=== PATIENT | female | born 1965 | race Caucasian/White ===

== ENCOUNTER 2024-06-25 02:52 | Inpatient (IN) | payer SELFPAY ==
[2024-06-25] VITALS (13 sets, daily range): BP systolic 145–221; BP diastolic 63–101; PULSE 76–105; RESP 16–20; TEMP 36.4–37; O2SAT 93–99; BMI 17.7
--- NOTE | ~2024-06-25 | MR_ITS ---
EXAMINATION: MR BRAIN WITHOUT CONTRAST CLINICAL INFORMATION: CVA COMPARISON: CTA from earlier same day TECHNIQUE: MRI of the brain was obtained using routine sequences without contrast. FINDINGS: Acute watershed-type infarcts within the high right frontoparietal lobe, inclusive of the pre- and post central gyri, paracentral lobule, right superior and middle frontal gyri, and right centrum semiovale. Cytotoxic edema results in minimal gyral expansion. There is curvilinear intrinsic T1 shortening within some of the regions of infarction suggestive of developing laminar necrosis. There is also patchy susceptibility artifact within the regions of acute ischemia likely reflecting trace petechial hemorrhage. This is superimposed upon multiple chronic watershed type infarcts within the high right frontoparietal lobe which demonstrate laminar necrosis and patchy hemosiderin staining. Subacute infarct within the right DIAZ territory involving the right cingulate gyrus. Chronic lacunar infarcts within the bilateral cerebellar hemispheres. Diffuse loss of the right ICA flow void with corresponding findings on CTA. Mild global cerebral volume loss. Patchy T2 FLAIR hyperintense foci in the subcortical and periventricular white matter, nonspecific but presumably chronic microangiopathy. No extra-axial fluid collection. No mass lesion, mass effect, or herniation pattern. Normal dural venous sinus flow voids. Normal appearance of the midline structures. The orbits are grossly unremarkable. The paranasal sinuses and mastoids are well aerated. Partially imaged T1 hypointense signal of the C5 and C6 vertebral bodies corresponds to prominent eburnation on CT. MR/MR head/brain wo con IMPRESSION: 1. Acute watershed-type infarcts within the high right frontoparietal lobe and centrum semiovale with associated mild gyral expansion, developing laminar necrosis, and trace petechial hemorrhage. This is superimposed upon multiple chronic watershed type infarcts within the high right frontoparietal lobe. 2. Subacute infarct within the right DIAZ territory involving the right cingulate gyrus without significant mass effect or reperfusion hemorrhage. 3. Chronic lacunar infarcts within the bilateral cerebellar hemispheres on a background of nonspecific white matter disease, presumably chronic microangiopathy. 4. Diffuse loss of the right ICA flow void with corresponding findings on CTA
--- NOTE | ~2024-06-25 | XR_ITS ---
EXAMINATION: XR ANKLE, LEFT CLINICAL INFORMATION: Fall and ankle pain. COMPARISON: None available. TECHNIQUE: AP, lateral, and mortise views of the left ankle. FINDINGS: The bony structures are osteopenic. There is a minimally displaced fracture through the distal fibula. The joint spaces are maintained. There is lateral soft tissue swelling. XR/XR ankle LT min 3V IMPRESSION: Minimally displaced fracture through the distal fibula.
--- NOTE | ~2024-06-25 | CT_ITS ---
EXAMINATION: Unenhanced CT the head; IV contrast enhanced CT angiography of the head and neck; delayed IV contrast-enhanced CT the head CLINICAL INFORMATION: Left-sided weakness for 2 weeks. COMPARISON: None. TECHNIQUE: Routine unenhanced CT the head with multiple coronal and sagittal reformatted images; IV contrast enhanced CT angiography of the head and neck with multiple 3-D reformatted angiographic thick section MIPS images processed on the technologist workstation under concurrent supervision; delayed IV contrast-enhanced CT the head. Vascular stenoses are made with reference to the NASCET criteria less otherwise specified. This CT examination was performed using dose optimization techniques as appropriate, variously including the following: *Automated exposure control *Adjustment of mA and/or kV according to patient size (this includes techniques or standardized protocols for targeted exams where dose is matched to indication/reason for exam; i.e. extremities or head) *Use of iterative reconstruction technique Intravenous Contrast: Omnipaque 350 75 mL DLP: 1980 mGy-cm FINDINGS: Unenhanced and IV contrast-enhanced CT the head: Focal cortical and subcortical hypodensity without associated mass effect is present in the posterior right frontal parietal regions involving the perirolandic portion of the right cerebral hemisphere. Focal cortical encephalomalacia is present anteriorly within the right middle frontal lobe gyrus. No intracranial hemorrhage or tumors noted. The orbits and globes are normal in appearance. No significant opacification of the visualized paranasal sinuses, mastoid air cells and middle ear cavities. No abnormal enhancement the brain parenchyma visualized. CT angiography neck: Common origin of the brachiocephalic and left common carotid arteries. Moderate scattered calcific atherosclerosis associated with the transverse aorta and origin of the great vessels. Focal absence of intraluminal opacification is present at the origin of the right internal carotid artery is consistent with either critical stenosis or complete occlusion. A diminutive opacified flow lumen is present throughout the remainder of the right internal carotid artery. Concentric anomaly calcific plaque is present in the right carotid bulb. Moderate (50%) focal stenosis of the origin of the left internal carotid artery is present secondary to concentric calcific and noncalcific plaque. The vertebral arteries are codominant. No cervical vertebral artery system stenoses, occlusions or dissections noted. CT angiography head: Segmental calcific and noncalcific plaque is present in the cavernous portions of the internal carotid arteries. Focal vascular stress and suspicious for saccular aneurysm is noted in association with the junction of the anterior communicating artery and left anterior cerebral artery directed inferiorly measuring 2 mm in longitudinal extent and 1 mm in transverse diameter. No vessel is noted at the apex of this focus to suggest a vascular infundibulum. This finding is at the limits of spatial resolution of the examination but is suspicious for a saccular aneurysm. type origin of the left posterior cerebral artery is noted. The visualized lung apices demonstrate moderate-marked centrilobular emphysema. The thyroid is normal in appearance. No cervical lymphadenopathy noted. Grossly normal appearance of the parotid submandibular and visualized sublingual glands. Incidental note is made of bilateral torus mandibularis. Marked intervertebral disc space area moderate posterior endplate osteophytosis noted at C5-C6. Moderate intervertebral disc space narrowing and moderate posterior endplate osteophytosis at C6-C7. CT/CT angio head neck IMPRESSION: Unenhanced and IV contrast-enhanced CT the head: *Age indeterminate infarct of the posterior right frontal and right parietal lobes involving the right perirolandic region. This region demonstrates hypodensity which may represent a combination of cytotoxic edema and encephalomalacia. No associated mass effect. This finding is most suspicious for subacute infarct with also represent a chronic infarct. *Chronic focal cortical infarct of the anterior portion of the right middle frontal lobe gyrus. *No intracranial hemorrhage. CT angiography head and neck: *Focal critical stenosis or complete occlusion of the origin of the right internal carotid artery. Intraluminal opacification is focally absent at the origin of the right internal carotid artery and may represent either critical stenosis or complete occlusion. Findings are suspicious for critical stenosis given that the remainder of the right internal carotid artery remains patent, though with a diminutive flow lumen. *Moderate (50%) focal stenosis of the origin of the left internal carotid artery. *Findings suspicious for a 2 mm x 1 mm (longitudinal X transverse) saccular aneurysm associated with the junction of the anterior communicating artery and left anterior cerebral artery. This finding is at the limits of spatial resolution of the examination but remains suspicious for a saccular aneurysm. The presumed aneurysm is directed inferomedially. Alternatively, this finding could represent vascular infundibulum. However, the location of this finding is more typical for an aneurysm and a vessel associated with the apex of this region to confirm the presence of a vascular infundibulum is not identified. Overall, findings are most suspicious for an aneurysm. *No intracranial large vessel occlusions. This result with particular regards to the subacute infarct, critical stenosis of the right internal carotid artery and intracranial aneurysm was discussed with Moses Meadows MD by telephone at 06/25/2024 7:13 AM and it was ascertained that the content and urgency of the report was understood at the time of direct communication.
--- NOTE | ~2024-06-25 | MR_ITS ---
MR CERVICAL SPINE WITHOUT IV CONTRAST CLINICAL INFORMATION: Cervical radiculopathy. COMPARISON: CTA head and neck June 25, 2024. TECHNIQUE: MRI of the cervical spine was obtained using routine sequences without contrast. FINDINGS: Partially imaged leftward convex scoliotic curvature of the thoracic spine. There is retrosubluxation of C5 on C6. Moderate to severe disc volume loss at C5-C6 and C6-C7. The vertebral body heights are maintained. Modic type I endplate signal changes at C5-C6. There is no bone marrow edema. Craniocervical junction is unremarkable. Partially imaged intracranial compartment is unremarkable. Cervical arterial flow voids are maintained. Absent right internal carotid artery flow void in keeping with the flow limiting critical stenosis of the proximal right ICA seen on yesterday's CTA of the head and neck. There are no cord signal changes accounting for artifact. C2-C3: Posterior disc contour is normal. There is no central canal stenosis and there is no foraminal stenosis. C3-C4: Uncovertebral joint spurring and facet arthropathy result in mild left-sided foraminal encroachment. No central canal and no right foraminal stenosis. C4-C5: Uncovertebral joint spurring and facet arthropathy result in mild bilateral foraminal encroachment. There is no central canal stenosis. C5-C6: Retrosubluxation. Disc osteophyte and ligamentum flavum thickening result in moderate to severe central canal stenosis and flattening of the cervical cord. Uncovertebral joint spurring and facet arthropathy result in severe bilateral foraminal stenosis. C6-C7: Disc osteophyte and ligamentum flavum thickening result in moderate central canal stenosis and flattening of the cervical cord. Advanced uncovertebral joint hypertrophy and hypertrophic facet arthropathy result in severe bilateral foraminal stenosis. C7-T1: Posterior disc contour is normal. There is no central canal stenosis and there is no foraminal stenosis. MR/MR cervical spine wo con IMPRESSION: * At C5-C6, retrosubluxation and multifactorial degenerative changes result in moderate to severe central canal stenosis, flattening of the cervical cord, and severe bilateral foraminal stenosis. There are Modic type I marrow signal changes at C5-C6. * At C6-C7, multifactorial degenerative changes result in moderate central canal stenosis, flattening of the cervical cord, and severe bilateral foraminal stenosis. * Absent right internal carotid artery flow void in keeping with the flow limiting critical stenosis of the proximal right ICA seen on yesterday's CTA of the head and neck.
--- NOTE | ~2024-06-25 | US_ITS ---
EXAMINATION: US EXTRACRANIAL CAROTID DUPLEX, BILATERAL CLINICAL INFORMATION: Acute CVA COMPARISON: CTA head and neck 06/25/2024 TECHNIQUE: Real-time ultrasound and Doppler techniques (integrating B-mode 2-D vascular images, Doppler spectral analysis and color-flow Doppler imaging) were utilized to interrogate the extracranial carotid arteries, the vertebral arteries and proximal subclavian arteries bilaterally. The degree of stenosis is determined by criteria similar to NASCET. FINDINGS: Right Side: 1. There is severe atherosclerotic plaque seen in the bifurcation/proximal ICA region. 2. The common carotid artery PSV proximally is 75.5 cm/s and distally 46.4 cm/s. 3. The proximal internal carotid artery velocities are 237 cm/s systolic and 15.7 cm/s diastolic. 4. The proximal external carotid artery PSV is 229 cm/s. 5. The vertebral artery shows antegrade flow. 6. The subclavian artery waveforms are normal. Left Side: 1. There is mild atherosclerotic plaque seen in the bifurcation/proximal ICA region. 2. The common carotid artery PSV proximally is 102 cm/s and distally 88.9 cm/s. 3. The proximal internal carotid artery velocities are 82 cm/s systolic and 20.3 cm/s diastolic. 4. The proximal external carotid artery PSV is 189 cm/s. 5. The vertebral artery shows antegrade flow. 6. The subclavian artery waveforms are stenotic. US/US carotid duplex BI IMPRESSION: 1. RIGHT: Moderate, hemodynamically significant stenosis of the proximal right internal carotid artery corresponding to a 50-79% stenosis by velocity criteria. 2. LEFT: Minimal, non-hemodynamically significant stenosis of the proximal left internal carotid artery corresponding to a 0-49% stenosis by velocity criteria. 3. Elevated velocities in the right external carotid artery and left subclavian artery consistent with stenoses.
--- NOTE | 2024-06-25 03:15 | ECG_ITS ---
Test Reason : WEAKNESS Blood Pressure : / mmHG Vent. Rate : 086 BPM Atrial Rate : 086 BPM P-R Int : 144 ms QRS Dur : 074 ms QT Int : 380 ms P-R-T Axes : 081 079 082 degrees QTc Int : 454 ms Normal sinus rhythm Possible Left atrial enlargement Nonspecific ST abnormality Abnormal ECG No previous ECGs available Referred By: Generic ED Physician Electronically Signed By:LORENZO CHRISTOPHER MD
--- NOTE | 2024-06-25 03:34 | PC.NURSE ---
late entry to triage, pt has a swollen left ankle with bruising from falling tonight. Pt does not have a history of falls. during the neruro exam pt was not able to move her left leg, unable to wiggle her toes, pt lifts her left leg with her hands, hand grasp weaker on left, left arm drift, pt is able to answer all questions asked and is alert and oriented x4. pt stated that she has not gone to be seen due to insurance issues and not that a provider would not see her. pt states she has lost weight due to not eating well, she lives alone and has no help. Dr Meadows is aware of these findings.
[2024-06-25] MEDS: iohexoL 350 MG/ML 100 ML INFUS..BTL 75 ML IV (03:49)
[2024-06-25] MEDS: Labetalol HCL 100 MG/20 ML VIAL 10 MG IVPUSH (03:59)
[2024-06-25 04:11] LABS: Basophils Absolute Auto 0.1 X10*3/uL (0.0-0.2); Basophils Percent Auto 0.7 % (0-2); Eosinophils Absolute Auto 0.1 X10*3/uL (0.0-0.4); Eosinophils Percent Auto 0.8 % (0-4); Hematocrit 42.3 % (37.0-47.0); Hemoglobin 15.1 g/dl (12.0-16.0); Imm Gran Abs Auto 0.05 X10*3/uL (0.00-0.03); Imm Gran Pct Auto 0.3 % (0.0-0.4); Lymphocytes Absolute Auto 1.6 X10*3/uL (1.2-4.9); Lymphocytes Percent Auto 11.1 % (20-40); MANUAL DIFF FLAG NO; Mean Corpuscular HGB Conc 35.7 g/dl (31.0-35.0); Mean Corpuscular Hemoglobin 33.8 pg (27.0-33.0); Mean Corpuscular Volume 94.6 fL (80.0-98.0); Mean Platelet Volume 10.2 fL (9.4-12.3); Monocytes Absolute Auto 1.1 X10*3/uL (0.1-1.2); Monocytes Percent Auto 7.5 % (2-11); Neutrophils Absolute Auto 11.5 x10*3/uL (2.0-8.3); Neutrophils Percent Auto 79.6 % (45-73); Platelet Count 270 X10*3/uL (160-400); Red Blood Count 4.47 X10*6/uL (4.20-5.50); Red Cell Distribution Width 12.4 % (11.0-16.0); White Blood Count 14.5 X10*3/uL (4.8-10.8)
[2024-06-25 04:16] LABS: INTERNATIONAL NORM RATIO 1.2 (0.9-1.1); Prothrombin Time 14.5 SEC (11.1-13.3)
[2024-06-25 04:25] LABS: Anion Gap 14 (12-20); Blood Urea Nitrogen 5 mg/dL (9-16); Calcium 9.4 mg/dL (8.4-10.2); Carbon Dioxide 23 mmol/L (22-29); Chloride 106 mmol/L (96-108); Creatinine Clr Calc Pharmacy 51.6; Estimated Glomerular Filt Rate > 60; Glucose Random 98 mg/dL (60-115); Potassium 3.7 mmol/L (3.3-5.1); Sodium 139 mmol/L (135-145)
[2024-06-25 04:38] LABS: Troponin-I High Sensitivity < 2.7 ng/L (<3.5-17.0)
--- NOTE | 2024-06-25 05:44 | PC.NURSE ---
pt presents to the ED after experiencing 2 weeks of left sided weakness - difficulty ambulating, unable to bear weight to left side. pt came to ED this evening after she had a fall at home and was unable to get herself up. pt arrived with stroke like symptoms i.e. 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 able to speak clear sentences, no facial droop or slurred speech. pt says she had insurance issues and was not able to come to the hospital when symptoms initially began 2 wks prior. pt lives alone, usually ambulates independently no issues - pt says she has been slowly getting around the house holding onto things, etc. CTA done on arrival to ed, ekg done/ labs sent, urine collected.#20g iv LAC. lebatolol iv given for high BP (improving). pt assisted to bedside commode (2 staff assist), completely unable to bear weight to left side. waiting for official CT scan results. son at bedside. pt is A&Ox3. call young within reach, plan of care ongoing pt pass swallow eval.
[2024-06-25 05:54] LABS: Appearance Urine Clear; Color Urine Yellow; Glucose Urine UA Negative (Negative); Leukocyte Esterase Urine Negative (Negative); Nitrite Urine Negative (Negative); Specific Gravity - Urine 1.025 (1.005-1.025); Urine Blood Negative (Negative); Urine Ketones Negative (Negative); Urine Protein Negative (Neg-Trace)
--- NOTE | 2024-06-25 06:51 | ED.WEAKNESS ---
HPI - Weakness General Chief complaint: Weakness Stated complaint: fall,HTN,leg heaviness Time Seen by Provider: 06/25/24 03:20 Source: patient and EMS Mode of arrival: EMS Limitations: no limitations History of Present Illness ED Provider: Dr. Meadows HPI Narrative: Patient with two week of left sided weakness. She has been barely able to walk and today decided to come in because she fell and injured her left ankle MD Complaint: focal weakness Onset (ago): week(s) Related Data Allergies Allergy/AdvReac Type Severity Reaction Status Date / Time Penicillins Allergy Hives Verified 06/25/24 03:12 Review of Systems Review of Systems: Yes all other systems are reviewed and are negative Neurologic: Denies Sensory deficit (Neuro) [facility] Social History Social History Alcohol intake: current Alcohol intake frequency: a few times a month Smoked in Last 30 Days: Yes Use of substances other than those prescribed or required for medical reasons: No Advance Directives: No Advance Directives Information Provided: Yes Do you have a plan to hurt others: No Plan Patient : No Physical Exam Vital Signs: Vital Signs: Last Vital Signs Temp 97.8 F 06/25/24 07:10 Pulse 78 06/25/24 07:10 Resp 16 06/25/24 07:10 BP 177/80 H 06/25/24 07:10 Pulse Ox 94 06/25/24 07:10 O2 Del Method Room Air 06/25/24 07:10 BMI result Body Mass Index 17.7 Const: Other: very thin female looking older than stated age Orientation/consciousness: oriented to person and patient oriented x3 Limitations: no limitations HEENT: Head: Yes normal to inspection Ears: external ears normal General nose exam: Normal external nose present Mouth: Normal oral and palatal mucosa present and oropharynx normal Throat: Yes posterior oropharynx normal Eyes: General: appearance normal, both eyes and all related structures Neck: Other: supple Neck: Yes normal visual inspection Chest: Chest palpation & inspection: normal inspection of the chest Resp: Auscultation: clear to auscultation bilaterally Cardio: Jugular venous distension: no JVD Rate: regular rate Rhythm: regular rhythm Heart sounds: S1 normal heart sound present and S2 normal heart sound present GI: Inspection: Yes normal to inspection Palpation (GI): Soft to palpation, nontender and No hepatosplenomegaly present Auscultation: normal bowel sounds : General: Yes no CVA tenderness Back/Spine/Pelvis: Back: no CVA tenderness Skin: General skin exam: no rashes or lesions noted Neuro: Other: left arm and leg with 4/5 arm and 3/5 leg General: oriented to person and patient oriented x3 Cranial nerves: Yes CN's II-XII intact bilaterally Sensory Exam: No Sensory deficit (Neuro) Extrem: General: Yes normal to inspection Psych: Appearance: grossly normal NIH Stroke Scale Internal: Initial- Upon Arrival Level of Consciousness: Alert Level of Consciousness Questions: Answers both questions correctly Level of Consciousness Commands: Performs both tasks correctly Best Gaze: Normal Visual: No visual loss Facial Palsy: Normal Motor Arm (Right): No drift Motor Arm (Left): Some effort against gravity Motor Leg (Right): No drift Motor Leg (Left): No effort against gravity Limb Ataxia: Absent Sensory: Normal Best Language: No aphasia Dysarthia: Normal Extinction and Inattention: No abnormality Score: 5 Course Reevaluation(s) Reevaluation #1: Lane HERNÁNDEZ applied posterior ankle splint with U splint to fractured ankle Time: 07:05 Reevaluation #2: I spent 40 minutes of critical care, with interventions, assessments, speaking to patient, consultants, and family. Time: 07:08 Reevaluation #3: will admit patient for CVA and ankle fracture and HTN Time: 07:09 Medications Administered Discontinued Medications Generic Name Dose Route Start Last Admin Trade Name Freq PRN Reason Stop Dose Admin Iohexol 75 ml 06/25/24 03:42 06/25/24 03:49 Iohexol 350 Mg/Ml 100 Ml Infus..Btl IV 06/25/24 03:43 75 ml ONCE ONE Administration Labetalol HCl 10 mg 06/25/24 03:24 06/25/24 03:59 Labetalol Hcl 100 Mg/20 Ml Vial IVPUSH 06/25/24 03:25 10 mg ONCE ONE Administration Medical Decision Making Differential Diagnosis Differential Diagnoses: The differential diagnosis associated with the presentation includes (stroke, brain tumor, ankle fracture) Admission/Observation Consideration of admission/observation: Escalation of care including admission/observation considered (upon arrival patient was considered for admission) Consult Healthcare Provider Management of the patient was discussed with: Hospitalist and Pipeline Operator (epic application coordinator) Lab Data 06/25/24 04:07 06/25/24 04:07 Labs: Lab Results 06/25/24 06/25/24 Range/Units 04:07 05:49 WBC 14.5 H (4.8-10.8) X10*3/uL RBC 4.47 (4.20-5.50) X10*6/uL Hgb 15.1 (12.0-16.0) g/dl Hct 42.3 (37.0-47.0) % MCV 94.6 (80.0-98.0) fL MCH 33.8 H (27.0-33.0) pg MCHC 35.7 H (31.0-35.0) g/dl RDW 12.4 (11.0-16.0) % Plt Count 270 (160-400) X10*3/uL MPV 10.2 (9.4-12.3) fL Immature Gran % (Auto) 0.3 (0.0-0.4) % Neut % (Auto) 79.6 H (45-73) % Lymph % (Auto) 11.1 L (20-40) % [place] % (Auto) 7.5 (2-11) % Eos % (Auto) 0.8 (0-4) % Baso % (Auto) 0.7 (0-2) % Lymph # (Auto) 1.6 (1.2-4.9) X10*3/uL [place] # (Auto) 1.1 (0.1-1.2) X10*3/uL Eos # (Auto) 0.1 (0.0-0.4) X10*3/uL Baso # (Auto) 0.1 (0.0-0.2) X10*3/uL Abs Immat Gran (auto) 0.05 H (0.00-0.03) X10*3/uL Absolute Neuts (auto) 11.5 H (2.0-8.3) x10*3/uL Absolute Nucleated RBC 0.000 (0.0-0.012) X10*3/uL Nucleated RBC % (auto) 0.0 (0.0-0.2) /100WBC PT 14.5 H (11.1-13.3) SEC INR 1.2 H (0.9-1.1) Sodium 139 (135-145) mmol/L Potassium 3.7 (3.3-5.1) mmol/L Chloride 106 (96-108) mmol/L Carbon Dioxide 23 (22-29) mmol/L Anion Gap 14 (12-20) BUN 5 L (9-16) mg/dL Creatinine 0.74 (0.5-1.4) mg/dL Estim Creat Clear Calc 51.6 Estimated GFR > 60 Random Glucose 98 (60-115) mg/dL Calcium 9.4 (8.4-10.2) mg/dL Troponin I High Sens < 2.7 (<3.5-17.0) ng/L Urine Color Yellow Urine Appearance Clear Urine pH 7.0 (5.0-9.0) Ur Specific [place] 1.025 (1.005-1.025) Urine Protein Negative (Neg-Trace) mg/dL Urine Glucose (UA) Negative (Negative) mg/dL Urine Ketones Negative (Negative) mg/dL Urine Blood Negative (Negative) Urine Nitrite Negative (Negative) Ur Leukocyte Esterase Negative (Negative) Independent Interpretation I performed an independent interpretation of an: EKG (sinus 90, no st or twave changes) and CT Scan (brain: R MCA infarction) Radiology Impression Discussion of test interpretation with radiology: I discussed test interpretation with the radiologist (occluded right carotid, aneurysm) Independent Historian Clinical information obtained from an independent historian. History obtained from or confirmed by: EMS Tests considered The following testing was considered but not selected: MRI of brain, will be performed as inpatient Discharge Plan Discharge Clinical Impression: Stroke, Ankle fracture Patient Disposition: Admitted As Inpatient Print Language: Mauritian
--- NOTE | 2024-06-25 08:36 | PC.NURSE ---
Awaiting Plavix per pharmacy - unavailable in ED Pyxis
--- NOTE | 2024-06-25 08:52 | PHA.MEDREC ---
Addendum entered by Joshua Doran RPh 06/25/24 09:49: MED REC CHECKED BY [facility] Original Note: Pharmacy Consult ? Medication Reconciliation Pharmacy has completed the medication reconciliation. Confirmed medications with patient. She states she is only taking a women's multi vitamin gummy 1 BID.
[2024-06-25] MEDS: Clopidogrel Bisulfate 300 MG TABLET PO (09:29)
[2024-06-25] MEDS: Aspirin Enteric Coated 81 MG TABLET.DR 162 MG PO (09:29)
--- NOTE | 2024-06-25 09:29 | PC.NURSE ---
Pt. medicated per JAN.
--- NOTE | 2024-06-25 09:33 | PM.IMHP ---
History of Present Illness Date of Service: 06/25/24 Chief Complaint: Left-sided weakness This is a 59-year-old female with no pertinent past medical history and not on prescription medications who presents to the emergency department for evaluation of left-sided weakness. Patient states that her symptoms started 2 weeks prior to presentation. She noticed left upper and lower extremity weakness. This has never happened before. No history of CVA. Patient states that she last saw a primary care physician many years ago. Denies any significant history of medical problems and was never on any prescription medications as per the patient. Patient also had a fall on the day of presentation when she fell on her left ankle. No chest pain or palpitations prior to the fall. Did not lose consciousness. No jerking movement of extremities. She denies fever, chills, chest discomfort, palpitations, shortness of breath, abdominal pain, changes in urinary or bowel habits. In the emergency department, imaging with age indeterminate multiple infarcts. Also ankle x-ray with distal fibula fracture Review of Systems Constitutional: Constitutional: Reports no additional constitutional complaints Cardiovascular: Cardiovascular: Reports no additional cardiovascular complaints Respiratory: Respiratory: Reports no additional respiratory complaints Gastrointestinal: Gastrointestinal: Reports no additional gastrointestinal complaints Genitourinary: Genitourinary: Reports no additional female genitourinary complaints Musculoskeletal: Musculoskeletal: Reports arthralgias and Reports joint swelling PMFSH Pertinent family history: No family history of early CAD Social History Alcohol intake: current Alcohol intake frequency: a few times a month Smoked in Last 30 Days: Yes Use of substances other than those prescribed or required for medical reasons: No Advance Directives: No Advance Directives Information Provided: Yes Do you have a plan to hurt others: No Plan Patient : No Meds Allergies Allergy/AdvReac Type Severity Reaction Status Date / Time Penicillins Allergy Hives Verified 06/25/24 03:12 Active Medications: Current Medications Aspirin (Aspirin Enteric Coated 81 Mg Tablet.) 162 mg PO DAILY [facility] Last Admin: 06/25/24 09:29 Dose: 162 mg Home Medications ?Medication ?Instructions ?Recorded ?Confirmed ?Last Taken ?Type multivitamin with minerals-folic 1 tab PO BID 06/25/24 06/25/24 06/25/24 06:30 History acid 120 mcg chewable tablet (Women's Multivitamin Gummies) Physical Exam Vital Signs and Narrative: Vital Signs: Last Vital Signs Temp 97.6 F 06/25/24 09:29 Pulse 83 06/25/24 09:29 Resp 18 06/25/24 09:29 BP 165/72 H 06/25/24 09:29 Pulse Ox 95 06/25/24 09:29 O2 Del Method Room Air 06/25/24 09:29 BMI result Body Mass Index 17.7 Middle-aged female lying in bed in no distress Neck supple, no JVD Regular rate and rhythm, S1-S2 heard Regular breath sounds bilaterally, no wheezing or crackles appreciated Abdomen soft nontender, no guarding, no rigidity Patient is awake, alert and oriented to self, place, time and person, left-sided weakness present, no facial droop, no nystagmus Psych: Normal mood Left lower extremity in Erlin wrap Results Labs 06/25/24 04:07 06/25/24 04:07 Labs: Laboratory Results - last 24 hr 06/25/24 06/25/24 04:07 05:49 MCV 94.6 MCH 33.8 H MCHC 35.7 H RDW 12.4 Plt Count 270 MPV 10.2 Immature Gran % (Auto) 0.3 Neut % (Auto) 79.6 H Lymph % (Auto) 11.1 L [place] % (Auto) 7.5 Eos % (Auto) 0.8 Baso % (Auto) 0.7 Lymph # (Auto) 1.6 [place] # (Auto) 1.1 Eos # (Auto) 0.1 Baso # (Auto) 0.1 Abs Immat Gran (auto) 0.05 H Absolute Neuts (auto) 11.5 H Absolute Nucleated RBC 0.000 Nucleated RBC % (auto) 0.0 PT 14.5 H INR 1.2 H Anion Gap 14 Estim Creat Clear Calc 51.6 Estimated GFR > 60 Random Glucose 98 Calcium 9.4 Troponin I High Sens < 2.7 Urine Color Yellow Urine Appearance Clear Urine pH 7.0 Ur Specific [place] 1.025 Urine Protein Negative Urine Glucose (UA) Negative Urine Ketones Negative Urine Blood Negative Urine Nitrite Negative Ur Leukocyte Esterase Negative Imaging Radiologist's Impressions: Impressions Head/Neck CTA 06/25/24 04:12 IMPRESSION: Unenhanced and IV contrast-enhanced CT the head: *Age indeterminate infarct of the posterior right frontal and right parietal lobes involving the right perirolandic region. This region demonstrates hypodensity which may represent a combination of cytotoxic edema and encephalomalacia. No associated mass effect. This finding is most suspicious for subacute infarct with also represent a chronic infarct. *Chronic focal cortical infarct of the anterior portion of the right middle frontal lobe gyrus. *No intracranial hemorrhage. CT angiography head and neck: *Focal critical stenosis or complete occlusion of the origin of the right internal carotid artery. Intraluminal opacification is focally absent at the origin of the right internal carotid artery and may represent either critical stenosis or complete occlusion. Findings are suspicious for critical stenosis given that the remainder of the right internal carotid artery remains patent, though with a diminutive flow lumen. *Moderate (50%) focal stenosis of the origin of the left internal carotid artery. *Findings suspicious for a 2 mm x 1 mm (longitudinal X transverse) saccular aneurysm associated with the junction of the anterior communicating artery and left anterior cerebral artery. This finding is at the limits of spatial resolution of the examination but remains suspicious for a saccular aneurysm. The presumed aneurysm is directed inferomedially. Alternatively, this finding could represent vascular infundibulum. However, the location of this finding is more typical for an aneurysm and a vessel associated with the apex of this region to confirm the presence of a vascular infundibulum is not identified. Overall, findings are most suspicious for an aneurysm. *No intracranial large vessel occlusions. This result with particular regards to the subacute infarct, critical stenosis of the right internal carotid artery and intracranial aneurysm was discussed with Moses Meadows MD by telephone at 06/25/2024 7:13 AM and it was ascertained that the content and urgency of the report was understood at the time of direct communication. Ankle X-Ray 06/25/24 05:05 IMPRESSION: Minimally displaced fracture through the distal fibula. Assessment and Plan (1) CVA (cerebral vascular accident): Status: Acute (2) Ankle fracture: Status: Acute Plan This is a 59-year-old female with no pertinent past medical history and not on prescription medications who presents to the emergency department for evaluation of left-sided weakness. #. Left-sided weakness: Imaging with subacute and age indeterminate multiple infarcts. Will admit patient with cardiac monitoring. Obtaining MRI to delineate anatomy. Consulting Neurology. Patient given dual antiplatelet therapy in the ER. Initiating aspirin and high-intensity statin. Also obtaining A1c, lipid panel and echo to complete workup. PT/OT to evaluate and treat #. Left distal fibula fracture: Due to mechanical fall. ERLIN wrap in the ER. Outpatient follow-up with ortho in 2 weeks #. Reactive leukocytosis DVT prophylaxis: Lovenox Full code Admit as inpatient and will require two night minimum hospital stay for evaluation and management of possible acute CVA (as above), which is not possible in a lesser acute setting. Specialist consult pending Quality Stroke Does the patient have a stroke diagnosis?: No VTE Prior VTE?: No VTE Risk Level:: Medical - moderate - high VTE Device Contraindication: Treatment Not Indicated VTE Drug Contraindication: N/A - Med Ordered
--- NOTE | 2024-06-25 10:39 | PC.NURSE ---
09:45 medication attempted to give just now, but pt. is currently working with PT/OT. Will give medication as soon as they're done with pt.
[2024-06-25] MEDS: Enoxaparin Sodium 40 MG/0.4 ML SYRINGE SUBCUT (10:47)
--- NOTE | 2024-06-25 12:06 | PC.NURSE ---
Vascular surgery consult placed.
--- NOTE | 2024-06-25 12:16 | P.CNNE_ITS ---
History of Present Illness Data of Consult Service Date: 06/25/24 Primary Care Provider: Unknown Physician HPI Reason for consult: Stroke 59 years old woman who has not seen a physician for about 30 years was noted to have left-sided weakness during last couple of weeks. Last night when she was coming out of bed she lost balance and fell. She said that she did not feel dizzy and did not pass out. In the past, she has complain of left shoulder area pain and left-sided neck pain radiating to her left arm. She denied any bowel bladder difficulty. Her imaging revealed abnormalities prompting this consultation. Review of Systems 2 Review of Systems: No recent cold or flu-like illness PMFSH Social History Social History Alcohol intake: current Alcohol intake frequency: a few times a month Smoked in Last 30 Days: Yes Use of substances other than those prescribed or required for medical reasons: No Advance Directives: No Advance Directives Information Provided: Yes Do you have a plan to hurt others: No Plan Patient : No Meds Allergies Allergy/AdvReac Type Severity Reaction Status Date / Time Penicillins Allergy Hives Verified 06/25/24 03:12 Active Medications: Current Medications Acetaminophen (Acetaminophen 325 Mg Tablet) 650 mg PO Q6H PRN PRN Reason: Pain, Mild (Pain Scale 1-3), fever or headache Aspirin (Aspirin Enteric Coated 81 Mg Tablet.) 162 mg PO DAILY [facility] Last Admin: 06/25/24 09:29 Dose: 162 mg Aspirin (Aspirin Enteric Coated 81 Mg Tablet.) 81 mg PO DAILY [facility] Atorvastatin Calcium (Atorvastatin Calcium 40 Mg Tablet) 40 mg PO BEDTIME [facility] Calcium Carbonate (Calcium Carbonate 750 Mg Tab.Chew) 750 mg PO Q4H PRN PRN Reason: Heartburn Enoxaparin Sodium (Enoxaparin Sodium 40 Mg/0.4 Ml Syringe) 40 mg SUBCUT Q24H [facility] Last Admin: 06/25/24 10:47 Dose: 40 mg Magnesium Hydroxide (Milk Of Magnesia 30 Ml Oral.Susp) 30 ml PO DAILY PRN PRN Reason: Constipation Melatonin (Melatonin 3 Mg Tablet) 6 mg PO BEDTIME PRN PRN Reason: Insomnia Ondansetron HCl (Ondansetron Hcl 4 Mg/2 Ml Vial) 4 mg IVPUSH Q8H PRN PRN Reason: Nausea and Vomiting Home Medications ?Medication ?Instructions ?Recorded ?Confirmed ?Last Taken ?Type multivitamin with minerals-folic 1 tab PO BID 06/25/24 06/25/24 06/25/24 06:30 History acid 120 mcg chewable tablet (Women's Multivitamin Gummies) Physical Exam 2 Vital Signs: Vital Signs: Last Vital Signs Temp 97.6 F 06/25/24 09:29 Pulse 83 06/25/24 09:29 Resp 18 06/25/24 09:29 BP 165/72 H 06/25/24 09:29 Pulse Ox 95 06/25/24 09:29 O2 Del Method Room Air 06/25/24 09:29 BMI result Body Mass Index 17.7 Neuro: Other: she is alert and awake with normal spontaneity of speech fluency comprehension and affect. There is mild left-sided facial flatness. Visual kennedy are full. There was mild left-sided weakness. Plantars are equivocal. Affect is normal. Results Labs 06/25/24 04:07 06/25/24 04:07 Labs: Short CBC 06/25/24 Range/Units 04:07 WBC 14.5 H (4.8-10.8) X10*3/uL Hgb 15.1 (12.0-16.0) g/dl Hct 42.3 (37.0-47.0) % Plt Count 270 (160-400) X10*3/uL BMP 06/25/24 04:07 Sodium 139 Potassium 3.7 Chloride 106 Carbon Dioxide 23 BUN 5 L Creatinine 0.74 Calcium 9.4 Urine 06/25/24 Range/Units 05:49 Urine Color Yellow Urine Appearance Clear Urine pH 7.0 (5.0-9.0) Ur Specific [place] 1.025 (1.005-1.025) Urine Protein Negative (Neg-Trace) mg/dL Urine Glucose (UA) Negative (Negative) mg/dL Head CT revealed multiple chronic ischemic embolic looking right middle cerebral artery area lesions. CTA of brain and neck suggested probably critical right internal carotid artery stenosis. Assessment and Plan (1) Cerebral infarction: Qualifiers: Cerebral infarction mechanism: embolism Precerebral and cerebral artery: carotid artery Laterality of affected vessel: right Qualified Code(s): I63.131 - Cerebral infarction due to embolism of right carotid artery Status: Acute 59 years old woman with probably critical right internal carotid artery stenosis that either might have worsened recently or the artery might have been occluded recently. She has couple of embolic looking right middle cerebral artery area ischemic infarctions, which explains left-sided weakness. My recommendation is to obtain noncontrast MRI of brain to figure out if she has any acuteness of these lesions, which would help to formulate future course. Continue baby aspirin daily, avoid hypotension, and have vascular surgery consultation for carotid endarterectomy. In addition, she also shows significant spondylitic lower cervical disease, which could cause cervical radiculopathy in that might have been the reason that she was suffering from chronic left arm pain and neck pain. MRI of cervical spine without contrast is recommended to evaluate that. (2) Carotid stenosis: Qualifiers: Laterality: right Qualified Code(s): I65.21 - Occlusion and stenosis of right carotid artery Status: Acute Procedures Date of Service Date of Service: 06/25/24
--- NOTE | 2024-06-25 13:00 | CA_ITS ---
Transthoracic Echocardiogram Patient (Last, First, Middle): Bessie Petty, Gender: Female Date of : 1965 Age: 59 Procedure Date: 06/25/2024 Procedure Type: Transthoracic Echocardiogram Location: ER Height: 152. cm Weight: 40.82 kg BSA: 1.33 m2 Heart Rate: 93 bpm BP: 177 / 78 mmHg Woods Boss: BRITTNEY Renee MD: Crispin Paz MD Patternmaker Metal: Bishnu Schaeffer MD Symptoms: CVA Study Quality: Fair ECG Rhythm: Sinus Conclusions: - 1. Normal LV ejection fraction with LVEF of 65-70% with impaired relaxation filling pattern 2. No clear evidence of PFO 3. Normal cardiac valvular Dopplers next 4. No gross pericardial effusion Findings Left Ventricle Normal left ventricular cavity size. There is normal left ventricular wall thickness. The left ventricular systolic function is normal. The visually estimated ejection fraction is between 65-70%. Spectral Doppler is indicative of an impaired relaxation filling pattern. E/E prime ratio is <8, consistent with normal filling pressures. Evidence suggests grade I (mild) diastolic dysfunction. Right Ventricle Normal right ventricular cavity size and systolic function. Atria Both atria are normal in size. There is lipomatous hypertrophy of the interatrial septum. There is no evidence of interatrial shunt by agitated saline. Valsalva study was of borderline quality. Aortic Valve The aortic valve structure and function is likely normal. There is no aortic valve stenosis. There is no aortic valve regurgitation. Mitral Valve Likely normal mitral valve structure and function. There is no mitral valve regurgitation. There is no mitral valve stenosis. Pulmonic Valve The pulmonic valve was not well visualized. Tricuspid Valve The tricuspid valve was not well visualized. Tricuspid regurgitation envelope is inadequate for calculation of right ventricular systolic pressure. Normal right atrial pressure. Great Vessels The aorta was not well visualized. The pulmonary artery was not well visualized. There is no dilatation of the ascending aorta. Venous The inferior vena cava is normal in size and collapses greater than 50% with inspiration. Pericardium/Pleural There is no evidence of pericardial effusion. Prior Study Comparison No prior study available for comparison. Measurements 2D Linear Measurements IVSd: 1.35 0.6-0.9/0.6-1.0 cm LVIDd: 3.05 3.9-5.3/4.2-5.9 cm LVIDd Index: 2.29 2.4-3.2/2.2-3.1 cm/m2 LVIDs: 1.85 2.0-3.6 cm LVPWd: 1.12 0.7-1.1 cm LA Diam: 2.50 2.7-3.8/3.0-4.0 cm LAIDs Index: 1.88 1.5-2.3 cm/m2 LV Mass: 145.42 67-162/88-224 g LV Mass Index: 109.34 43-95/49-115 g/m2 LVOT Diam: 1.60 3.0+(-)1.3 cm 2D Systolic Function EF 4C: 74.50 >55% EF 2C: 63.40 >55% EF BiP: 69.80 >55% Mitral Valve MV Pk E: 0.75 MV PK A: 1.03 MV Decel Time: 194.00 E/A: 0.70 E'Lateral: 5.55 E'Medial: 5.55 E/E' Med: 13.50 E/E' Lat: 13.50 PHT: 57.00 MVA PHT: 3.86 Decel [place]: 3.86 Aortic Valve AoV Pk Jameel: 1.26 AoV Mn Jameel: 0.85 AoV VTI: 0.24 AoV Pk Grad: 6.00 Aov Mn Grad: 3.00 VAL Cont.VTI: 1.60 LVOT LVOT Pk Jameel: 1.03 LVOT Mn Jameel: 0.76 LVOT VTI: 0.19 LVOT Pk Grad: 4.00 LVOT Mn Grad: 3.00 LVOT Diam: 1.60 LVOT Area: 2.01 Diastolic Function MV Pk E: 0.75 MV Pk A: 1.03 E/A: 0.70 E'Medial: 5.55 E/E' Med: 13.50 E' Laterial: 5.55 E/E' Lat: 13.50 Right Ventricle TAPSE (mm): 17.60 TVS' Jameel: 9.03 Tricuspid Valve RA Press: 3.00 Great Vessels Aorta Sinus of Valsalva: 2.70 2.0-3.5 cm Ao Asc: 2.00 2.1-3.4 cm Pulmonary Valve PV Pk Jameel: 0.88 Peak PV Grad: 3.00 Updated in Other Vendor System with Status of Final Bishnu Schaeffer MD electronically signed on 06/25/2024 4:17:52 PM with status of Final
[2024-06-25] MEDS: amLODIPine Besylate 5 MG TABLET PO (18:33)
--- NOTE | 2024-06-25 18:50 | MHC.CM.ED ---
CM completed a HCP at the patient's request. Completed and copies given. Uploaded into [facility] [employer] [facility] [employer] and [facility] [employer]. HCP #1/daughter Annemarie Toussaint ([phone]) and HCP #2/son Vinnie Jackson ([phone]). Pt does not have a PCP. Task to CM office for a PCP appt.
[2024-06-25] MEDS: Acetaminophen 325 MG TABLET 650 MG PO (19:35)
[2024-06-25] MEDS: Atorvastatin Calcium 40 MG TABLET PO (20:39)
[2024-06-26] VITALS (11 sets, daily range): BP systolic 120–194; BP diastolic 56–96; PULSE 80–101; RESP 18–20; TEMP 36–36.9; O2SAT 93–98; BMI 17.5
[2024-06-26 06:34] LABS: MANUAL DIFF FLAG NO
[2024-06-26 06:54] LABS: Anion Gap 13 (12-20); Blood Urea Nitrogen 5 mg/dL (9-16); Calcium 9.7 mg/dL (8.4-10.2); Carbon Dioxide 25 mmol/L (22-29); Chloride 108 mmol/L (96-108); Cholesterol 183 mg/dL (<200); Creatinine Clr Calc Pharmacy 52.7; Estimated Glomerular Filt Rate > 60; Glucose Random 88 mg/dL (60-115); HDL Cholesterol 43 mg/dL (>40); LDL Cholesterol Calculated 120 mg/dL (<100); Potassium 3.7 mmol/L (3.3-5.1); Sodium 142 mmol/L (135-145); Triglycerides 101 mg/dL (<150)
[2024-06-26 06:57] LABS: Basophils Absolute Auto 0.1 X10*3/uL (0.0-0.2); Eosinophils Absolute Auto 0.2 X10*3/uL (0.0-0.4); Eosinophils Percent Auto 2.2 % (0-4); Hematocrit 43.3 % (37.0-47.0); Hemoglobin 15.3 g/dl (12.0-16.0); Imm Gran Abs Auto 0.03 X10*3/uL (0.00-0.03); Imm Gran Pct Auto 0.3 % (0.0-0.4); Lymphocytes Absolute Auto 3.2 X10*3/uL (1.2-4.9); Lymphocytes Percent Auto 30.1 % (20-40); Mean Corpuscular HGB Conc 35.3 g/dl (31.0-35.0); Mean Corpuscular Hemoglobin 33.5 pg (27.0-33.0); Mean Corpuscular Volume 94.7 fL (80.0-98.0); Mean Platelet Volume 10.5 fL (9.4-12.3); Monocytes Absolute Auto 1.2 X10*3/uL (0.1-1.2); Monocytes Percent Auto 11.2 % (2-11); Neutrophils Absolute Auto 5.9 x10*3/uL (2.0-8.3); Neutrophils Percent Auto 55.2 % (45-73); Platelet Count 275 X10*3/uL (160-400); Red Blood Count 4.57 X10*6/uL (4.20-5.50); Red Cell Distribution Width 12.5 % (11.0-16.0); White Blood Count 10.8 X10*3/uL (4.8-10.8)
[2024-06-26] MEDS: Aspirin Enteric Coated 81 MG TABLET.DR 162 MG PO (08:19)
[2024-06-26] MEDS: amLODIPine Besylate 5 MG TABLET PO (08:20)
[2024-06-26] MEDS: Enoxaparin Sodium 40 MG/0.4 ML SYRINGE SUBCUT (08:20)
[2024-06-26 08:35] LABS: Estimated Average Glucose 94 mg/dL; Hemoglobin A1c % 4.9 % (<6.0)
--- NOTE | 2024-06-26 08:37 | MHC.CM.PN ---
CM met with Patient at bedside. 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 PT is recommending Acute Rehab but Patient has no insurance and no PCP. Patient plans to stay with her Daughter/HCP/Pavan Ma at time of dc. CM has initiated and will follow fort dc planning.
--- NOTE | 2024-06-26 10:28 | PM.CNGS ---
History of Present Illness Consult details Consult date: 06/26/24 Reason for consult: other (Carotid stenosis with stroke) Narrative: 59-year-old female with a history of left-sided weakness. She reported that her left upper and lower extremity had been weak for about 2 weeks prior to presentation. She has not seen a primary care doctor in many years noted that this was an acute change in presented to the emergency room. Upon workup she was noted to have right internal carotid occlusion. In addition MRI dated 06/25/2024 was concerning for infarcts in the right frontoparietal region along with right DIAZ territory. She now presents to us for vascular evaluation. Review of Systems Review of Systems: Yes all other systems are reviewed and are negative Constitutional: Constitutional: Reports no additional constitutional complaints ENT: Reports Normal hearing present Cardiovascular: Cardiovascular: Denies chest pain, Denies chest pain at rest, Denies chest pain with activity and Denies pedal edema Respiratory: Respiratory: Denies cough Gastrointestinal: Gastrointestinal: Denies abdominal pain Musculoskeletal: Musculoskeletal: Denies abnormal gait, Denies muscle cramps and Denies radiating pain into limb Integumentary/Breasts: Skin/Breast: Denies skin ulcer and Denies wounds Neurologic: Reports Normal hearing present and Denies abnormal gait Psychiatric: Psychiatric: Reports no additional psychiatric complaints [facility] Social History Social History Household Members: None Housing: House Do you presently have visiting nurse or other home services: No Alcohol intake: current Alcohol intake frequency: a few times a month Patient Tobacco Use Status: Never used Tobacco Tobacco use type: Cigarette Cigarette Packs Per Day: 1 Cigarettes Per Day: 20.0 Years Smoked: 25 yrs e-Cigarette/Vaping Use: Never Used Second Hand Smoke Exposure: Yes service: No Meds Allergies Allergy/AdvReac Type Severity Reaction Status Date / Time Penicillins Allergy Hives Verified 06/25/24 03:12 Active Medications: Current Medications Acetaminophen (Acetaminophen 325 Mg Tablet) 650 mg PO Q6H PRN PRN Reason: Pain, Mild (Pain Scale 1-3), fever or headache Last Admin: 06/25/24 19:35 Dose: 650 mg Amlodipine Besylate (Amlodipine Besylate 5 Mg Tablet) 5 mg PO DAILY MARANDA; Protocol Last Admin: 06/26/24 08:20 Dose: 5 mg Aspirin (Aspirin Enteric Coated 81 Mg Tablet.) 81 mg PO DAILY [facility] Atorvastatin Calcium (Atorvastatin Calcium 40 Mg Tablet) 40 mg PO BEDTIME [facility] Last Admin: 06/25/24 20:39 Dose: 40 mg Calcium Carbonate (Calcium Carbonate 750 Mg Tab.Chew) 750 mg PO Q4H PRN PRN Reason: Heartburn Enoxaparin Sodium (Enoxaparin Sodium 40 Mg/0.4 Ml Syringe) 40 mg SUBCUT Q24H [facility] Last Admin: 06/26/24 08:20 Dose: 40 mg Magnesium Hydroxide (Milk Of Magnesia 30 Ml Oral.Susp) 30 ml PO DAILY PRN PRN Reason: Constipation Melatonin (Melatonin 3 Mg Tablet) 6 mg PO BEDTIME PRN PRN Reason: Insomnia Nicotine (Nicotine 21 Mg Patch.Td24) 21 mg TRANSDERMA DAILY [facility] Ondansetron HCl (Ondansetron Hcl 4 Mg/2 Ml Vial) 4 mg IVPUSH Q8H PRN PRN Reason: Nausea and Vomiting Oxycodone HCl (Oxycodone Hcl Immed Release 5 Mg Tablet) 5 mg PO Q6H PRN PRN Reason: Pain, Moderate(Pain Scale 4-6) Home Medications ?Medication ?Instructions ?Recorded ?Confirmed ?Last Taken ?Type multivitamin with minerals-folic 1 tab PO BID 06/25/24 06/25/24 06/25/24 06:30 History acid 120 mcg chewable tablet (Women's Multivitamin Gummies) Physical Exam Vital Signs: Vital Signs: Last Vital Signs Temp 98.5 F 06/26/24 08:00 Pulse 93 06/26/24 08:00 Resp 20 06/26/24 08:00 BP 193/86 H 06/26/24 08:00 Pulse Ox 95 06/26/24 08:00 O2 Del Method Room Air 06/26/24 08:00 BMI result Body Mass Index 17.5 Const: General: cooperative, healthy appearing and comfortable Orientation/consciousness: oriented to person, oriented to place and oriented to time HEENT: Head: Yes normal to inspection Neck: Neck: Yes normal visual inspection Carotids: no bruits Chest: Chest palpation & inspection: normal inspection of the chest Resp: Effort & Inspection: normal respiratory effort and able to speak in complete sentences Auscultation: clear to auscultation bilaterally, no crackles, no rales, no rhonchi and no wheezes Cardio: Rate: regular rate Rhythm: regular rhythm Heart sounds: S1 normal heart sound present and S2 normal heart sound present Bruits: no carotid bruits Peripheral pulses: Peripheral pulses 2+ throughout GI: Inspection: Yes normal to inspection Skin: Wounds: no wounds Hair: normal Neuro: General: oriented to person, oriented to place and oriented to time Cranial nerves: Yes CN's II-XII intact bilaterally and Yes Normal hearing present Cognition (Neuro): normal cognition Motor exam (neuro): 5/5 motor strength present throughout Extrem: Other: venous exam: No significant superficial varicosities or spider telangiectasias, minimal edema General: No clubbing, No cyanosis and No edema Psych: Appearance: grossly normal Mental Status: mental status grossly normal Speech and movement: Normal speech and movement present Results Labs 06/26/24 06:16 06/26/24 06:16 Labs: Abnormal lab results 06/26/24 Range/Units 06:16 MCH 33.5 H (27.0-33.0) pg MCHC 35.3 H (31.0-35.0) g/dl [place] % (Auto) 11.2 H (2-11) % BUN 5 L (9-16) mg/dL LDL Cholesterol, Calc 120 H (<100) mg/dL Short CBC 06/26/24 Range/Units 06:16 WBC 10.8 (4.8-10.8) X10*3/uL Hgb 15.3 (12.0-16.0) g/dl Hct 43.3 (37.0-47.0) % Plt Count 275 (160-400) X10*3/uL BMP 06/26/24 06:16 Sodium 142 Potassium 3.7 Chloride 108 Carbon Dioxide 25 BUN 5 L Creatinine 0.72 Calcium 9.7 Urine 06/25/24 Range/Units 05:49 Urine Color Yellow Urine Appearance Clear Urine pH 7.0 (5.0-9.0) Ur Specific [place] 1.025 (1.005-1.025) Urine Protein Negative (Neg-Trace) mg/dL Urine Glucose (UA) Negative (Negative) mg/dL All other labs normal. Assessment and Plan (1) Stroke due to stenosis of right carotid artery: Status: Acute Plan In short patient has right carotid stenosis with stroke. Would recommend continued use of aspirin and statin. We did discuss the acute nature of the stroke. Will obtain an ultrasound to better define if there is flow in the right carotid or if it is completely occluded. In either event due to the acute stroke no acute intervention indicated. She can follow up with us as an outpatient. Thank you for allowing us to assist in her care. Procedures Date of Service Date of Service: 06/26/24
[2024-06-26] MEDS: Nicotine 21 MG PATCH.TD24 TRANSDERMA (10:48)
[2024-06-26] MEDS: Aspirin Enteric Coated 81 MG TABLET.DR PO (10:48)
--- NOTE | 2024-06-26 11:37 | MHC.CLN ---
PT WITH LOW BMI 17.5 PT IS 90% IBW INDICATES BORDERLINE WT FOR HT PT DOES NOT APPEAR MALNOURISHED AT THIS TIME, HOWEVER AT RISK R/T CHRONIC POOR PO INTAKE PT REPORTED WT STABLE HOWEVER CONSUMES ONLY 1 MEAL PER DAY WITH CHRONIC POOR PO INTAKE. DAUGHTER REPORTED PT CONSUMES COFFEE, AND TAKES SIPS/BITES OF JUNK FOOD LIKE CHIPS HER MEAL. PT STATED SHE CONSUMES ONE MEAL PER DAY OF LOW NUTRITIONAL VALUE AND NOT MEETING ESTIMATED NUTRITION NEEDS SECONDARY TO NO DESIRE TO COOK, LIVING ALONE WITH LOW APPETITE. UPON INTERVIEW, PLAN IS FOR PT TO MOVE TO DAUGHTERS HOME FOR MORE SUPPORT AND INCREASED NEEDS. DIET REGULAR-APPROPRIATE PT RECEPTIVE TO DRINKING ENSURE TO INCREASE KCALS SUPP TO PROVIDE 700KCALS, 40G PROTEIN MONITOR PO INTAKE AND ENCOURAGE SUPPLEMENTS SEE ALSO FULL CLINICAL NUTRITION ASSESSMENT
--- NOTE | 2024-06-26 14:38 | MHC.STROKE ---
Met with patient and family to provide stroke education. Stroke pamphlet reviewed. We discussed risk factors and lifestyle modifications along with the plan of care. All questions answered. Pt and family were engaged in conversation. Will continue to assist as needed.
--- NOTE | 2024-06-26 15:12 | HO.PM.IMPN ---
Subjective Subjective Date of Service: 06/26/24 Interval History: Being followed for acute right frontoparietal lobe infarction. Denies headache, no lightheadedness or dizziness, no new weakness, no speech impairment complaining of persistent left-sided weakness, good pain control left ankle. Review of Systems All other system are reviewed and are negative. Physical Exam Vital Signs: Vital Signs: Last Vital Signs Temp 98.5 F 06/26/24 12:00 Pulse 98 06/26/24 12:11 Resp 20 06/26/24 12:00 BP 180/79 H 06/26/24 12:11 Pulse Ox 94 06/26/24 12:00 O2 Del Method Room Air 06/26/24 12:00 BMI result Body Mass Index 17.5 Const: Other: General awake alert x3, resting comfortably in no acute distress. Anicteric sclera Neck supple no JVD. CVS regular rate rhythm, Respiratory lungs clear to auscultation, no respiratory distress, no wheeze, no rhonchi. Gastrointestinal abdomen soft, non tender, bowel sounds audible, no no guarding , no rigidity. Extremities no edema. 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 Skin no rash Psych appropriate affect Objective Data Active Medications Acetaminophen (Acetaminophen 325 Mg Tablet) 650 mg PO Q6H PRN PRN Reason: Pain, Mild (Pain Scale 1-3), fever or headache Last Admin: 06/25/24 19:35 Dose: 650 mg Documented By: RENU Amlodipine Besylate (Amlodipine Besylate 5 Mg Tablet) 5 mg PO DAILY [facility]; Protocol Last Admin: 06/26/24 08:20 Dose: 5 mg Documented By: RANJAN Aspirin (Aspirin Enteric Coated 81 Mg Tablet.Dr) 81 mg PO DAILY [facility] Last Admin: 06/26/24 10:48 Dose: 81 mg Documented By: RANJAN Atorvastatin Calcium (Atorvastatin Calcium 40 Mg Tablet) 40 mg PO BEDTIME [facility] Last Admin: 06/25/24 20:39 Dose: 40 mg Documented By: RENU Calcium Carbonate (Calcium Carbonate 750 Mg Tab.Chew) 750 mg PO Q4H PRN PRN Reason: Heartburn Enoxaparin Sodium (Enoxaparin Sodium 40 Mg/0.4 Ml Syringe) 40 mg SUBCUT Q24H [facility] Last Admin: 06/26/24 08:20 Dose: 40 mg Documented By: RANJAN Lisinopril (Lisinopril 10 Mg Tablet) 10 mg PO DAILY [facility]; Protocol Magnesium Hydroxide (Milk Of Magnesia 30 Ml Oral.Susp) 30 ml PO DAILY PRN PRN Reason: Constipation Melatonin (Melatonin 3 Mg Tablet) 6 mg PO BEDTIME PRN PRN Reason: Insomnia Nicotine (Nicotine 21 Mg Patch.Td24) 21 mg TRANSDERMA DAILY [facility] Last Admin: 06/26/24 10:48 Dose: 21 mg Documented By: RANJAN Ondansetron HCl (Ondansetron Hcl 4 Mg/2 Ml Vial) 4 mg IVPUSH Q8H PRN PRN Reason: Nausea and Vomiting Oxycodone HCl (Oxycodone Hcl Immed Release 5 Mg Tablet) 5 mg PO Q6H PRN PRN Reason: Pain, Moderate(Pain Scale 4-6) Labs 06/26/24 06:16 06/26/24 06:16 Labs: Laboratory Results - last 24 hr 06/26/24 06:16 MCV 94.7 MCH 33.5 H MCHC 35.3 H RDW 12.5 Plt Count 275 MPV 10.5 Immature Gran % (Auto) 0.3 Neut % (Auto) 55.2 Lymph % (Auto) 30.1 [place] % (Auto) 11.2 H Eos % (Auto) 2.2 Baso % (Auto) 1.0 Lymph # (Auto) 3.2 [place] # (Auto) 1.2 Eos # (Auto) 0.2 Baso # (Auto) 0.1 Abs Immat Gran (auto) 0.03 Absolute Neuts (auto) 5.9 Absolute Nucleated RBC 0.000 Nucleated RBC % (auto) 0.0 Anion Gap 13 Estim Creat Clear Calc 52.7 Estimated GFR > 60 Random Glucose 88 Estimat Average Glucose 94 Hemoglobin A1c % 4.9 Calcium 9.7 Triglycerides 101 Cholesterol 183 LDL Cholesterol, Calc 120 H HDL Cholesterol 43 Assessment and Plan (1) Stroke due to stenosis of right carotid artery: Status: Acute (2) Carotid stenosis: Status: Acute Plan 59-year-old female with no pertinent past medical history and not on prescription medications who presents to the emergency department for evaluation of left-sided weakness. #. Acute/ Subacute infarction. Left-sided weakness MRI brain showed right anterior circulation border zone acute infarction Carotid ultrasound showed moderate right hemodynamically significant stenosis 50-79%, left with 0-49% stenosis Seen by vascular surgery he recommend outpatient follow-up in couple weeks Hemoglobin A1c 4.9, LDL 120 Continue aspirin and statin and good blood pressure control PT recommend acute rehab, patient has no insurance, no PCP # Hypertension untreated place on Norvasc 5 mg and lisinopril 10 mg follow BP, noted to have drop in blood pressure with standing question due to dehydration Will follow orthostatic BP is #. Left distal fibula fracture: Due to mechanical fall. Outpatient follow-up with ortho in 2 weeks #. Reactive leukocytosis resolved # tobacco use disorder counseling done place on nicotine patch 21 mg # left-sided neck/arm pain and weakness, C-spine MRI showed moderate to severe lower cervical multilevel spondylitic stenosis with flattening of cord, cervical spondylitic radiculomyelopathy. neuro recommends outpatient neurosurgical evaluation, avoid neck manipulation, not to drive at this time. DVT prophylaxis: Lovenox Full code Will require continued inpatient hospitalization for close blood pressure monitoring and safe disposition Quality Stroke Does the patient have a stroke diagnosis?: No VTE Prior VTE?: No VTE Risk Level:: Medical - moderate - high VTE Device Contraindication: Treatment Not Indicated VTE Drug Contraindication: N/A - Med Ordered
[2024-06-26] MEDS: lisinopriL 10 MG TABLET PO (15:58)
--- NOTE | 2024-06-26 16:13 | MHC.CM.PN ---
Patient has been medically cleared for dc to homed today, self care.
[2024-06-26] MEDS: Atorvastatin Calcium 40 MG TABLET PO (20:11)
[2024-06-26] MEDS: Nicotine Polacrilex 2 MG GUM BUCCAL (22:27)
[2024-06-27 03:21] VITALS: BP 132/63; PULSE 86; RESP 20; TEMP 36.3; O2SAT 91
[2024-06-27 07:28] VITALS: BP 144/78; PULSE 100; RESP 20; TEMP 36.2; O2SAT 96
[2024-06-27] MEDS: Enoxaparin Sodium 40 MG/0.4 ML SYRINGE SUBCUT (08:01)
[2024-06-27] MEDS: amLODIPine Besylate 5 MG TABLET PO (08:02)
[2024-06-27] MEDS: Nicotine 21 MG PATCH.TD24 TRANSDERMA (08:02)
[2024-06-27] MEDS: Aspirin Enteric Coated 81 MG TABLET.DR PO (08:02)
[2024-06-27] MEDS: lisinopriL 10 MG TABLET PO (08:03)
[2024-06-27] MEDS: Acetaminophen 325 MG TABLET 650 MG PO (08:15)
--- NOTE | 2024-06-27 10:17 | PM.DS ---
DS: Providers Provider Date of Service: 06/27/24 Date of admission: 06/25/24 09:31 Primary care physician: None Physician Consults: 06/25/24 09:31 Consult to Neurology Routine Consulting Provider: [facility] [place] [facility] Reason for consultation: CVA 06/25/24 11:47 Consult to Vascular Surgery Routine Consulting Provider: [facility] Reason for consultation: Right internal carotid artery occlusion DS: Diagnosis Discharge Diagnosis (1) Stroke due to stenosis of right carotid artery: Status: Acute (2) Carotid stenosis: Status: Acute DS: Summary Hospital Course Hospital Course: History of presenting illness: Date of Service: 06/25/24 Chief Complaint: Left-sided weakness This is a 59-year-old female with no pertinent past medical history and not on prescription medications who presents to the emergency department for evaluation of left-sided weakness. Patient states that her symptoms started 2 weeks prior to presentation. She noticed left upper and lower extremity weakness. This has never happened before. No history of CVA. Patient states that she last saw a primary care physician many years ago. Denies any significant history of medical problems and was never on any prescription medications as per the patient. Patient also had a fall on the day of presentation when she fell on her left ankle. No chest pain or palpitations prior to the fall. Did not lose consciousness. No jerking movement of extremities. She denies fever, chills, chest discomfort, palpitations, shortness of breath, abdominal pain, changes in urinary or bowel habits. In the emergency department, imaging with age indeterminate multiple infarcts. Also ankle x-ray with distal fibula fracture. Hospital course: 59-year-old female with no pertinent past medical history and not on prescription medications who presents to the emergency department for evaluation of left-sided weakness, admitted to medical floor with concern of acute/subacute CVA,MRI brain showed right anterior circulation border zone acute infarction, Carotid ultrasound showed moderate right hemodynamically significant stenosis 50-79%, left with 0-49% stenosis,seen by vascular surgery he recommend outpatient follow-up in 2 weeks, Hemoglobin A1c 4.9, LDL 120, seen by neurology they agreed with aspirin statin and recommend see vascular surgery follow-up, patient seen by Physical therapy they recommended acute rehab but unfortunately patient is on in showed therefore is going home with daughter Hypertension untreated placed on lisinopril 10 mg , recommend to follow blood pressure noted to have persistent elevated blood pressure recommend to adjust dosage. Left distal fibula fracture, Due to mechanical fall, has left foot cast, recommend Outpatient follow-up with ortho in 2 weeks Reactive leukocytosis resolved Tobacco use disorder counseling done place on nicotine patch 21 mg and prn nicotine gums. Left-sided neck/arm pain and weakness, C-spine MRI showed moderate to severe lower cervical multilevel central canal stenosis with flattening of cord, cervical spondylitic radiculomyelopathy. neuro recommends outpatient neurosurgical evaluation, recommend to avoid neck manipulation, not to drive at this time. Time Attestation Discharge Coordination Time (in mins): 40 Quality: Safe Use of Opioids Does Pt have an Active Cancer Diagnosis on the Problem List?: No Quality: Stroke Does the patient have a stroke diagnosis?: No Physical Exam Vital Signs: Vital Signs: Last Vital Signs Temp 97.1 F 06/27/24 07:28 Pulse 100 06/27/24 07:28 Resp 20 06/27/24 07:28 BP 144/78 H 06/27/24 07:28 Pulse Ox 96 06/27/24 07:28 O2 Del Method Room Air 06/27/24 07:28 BMI result Body Mass Index 17.5 Const: Other: General awake alert x3, resting comfortably in no acute distress. Anicteric sclera Neck supple no JVD. CVS regular rate rhythm, Respiratory lungs clear to auscultation, no respiratory distress, no wheeze, no rhonchi. Gastrointestinal abdomen soft, non tender, bowel sounds audible, no no guarding , no rigidity. Extremities no edema. Left foot in soft cast/splint with Erlin wrap. Neuro speech clear, left-sided upper extremity weakness resolved, difficult to assess left lower extremity weakness due to left ankle fracture, no pronator drift, speech clear, mild loss of right nasolabial fold Skin no rash Psych appropriate affect Discharge Plan Discharge Anticipated Discharge Date/Time: 06/26/24 16:01 Patient Disposition: Home, Self-Care Discharge Diagnosis: Acute/subacute CVA Left ankle fracture Referrals: Physician,None [Primary Care Provider] - 1 Week Discharge Medications: New oxycodone 5 mg Tablet 5 mg PO Q6H PRN (Reason: Pain, Moderate(Pain Scale 4-6)) Qty: 20 0RF Rx Instructions: Partial Fill upon patient request. atorvastatin 40 mg Tablet 40 mg PO BEDTIME Qty: 30 0RF nicotine 21 mg/24 hr Patch 24 Hour 21 mg transdermal DAILY Qty: 30 0RF nicotine (polacrilex) 2 mg Gum 2 mg buccal Q2H PRN (Reason: Nicotine Cravings) Qty: 50 0RF aspirin 81 mg Tablet,Delayed Release (Dr/Ec) 81 mg PO DAILY Qty: 30 0RF lisinopril 10 mg Tablet 10 mg PO DAILY Qty: 30 0RF Protocol: Hold for SBP< HOLD for SBP < : 90 Continued multivit with min-folic acid [Women's Multivitamin Gummies] 120 mcg Tablet,Chewable 1 tab PO BID Discharge Orders: Discharge Order (Routine); Ordered 06/26/24 Ordered By: Estephania Glass Diet: Low fat, low cholesterol Activity on Discharge: Nonweightbearing left lower extremity Stand Alone Forms: Patient Portal Discharge page Print Language: [place]ian Care Plan Goals: Acute/subacute CVA Take all medications as prescribed Monitor blood pressure Strongly recommend to abstain from smoking avoid driving no strenuous activity left upper extremity Health Concerns: Hypertension/hyperlipidemia/tobacco use disorder/left cervical radiculomyelopathy Plan of Treatment: Outpatient follow-up with Neurosurgery call for appointment for left cervical radiculomyelopathy Outpatient follow-up with Orthopedic surgery Dr. Worrell call for appointment in 2 weeks Outpatient follow-up with primary care physician Assessment: As above
[2024-06-27 10:55] VITALS: BP 129/60; PULSE 92; RESP 20; TEMP 36.2; O2SAT 95
[2024-06-27 11:07] VITALS: BP 129/60; PULSE 92; O2SAT 95
--- NOTE | 2024-06-27 11:21 | MHC.CM.PN ---
pt has been medically cleared for DC, she will go home via family transport, plan is self care.
== END 2024-06-27 12:55 | disposition home or self-care (01) | DRG 65 ==
LOC: HO.ED 07:59 → HO.EDOVER 09:35 → HO.IMC 21:53
PROVIDERS: Admitting Provider Student in an Organized Health Care Education/Training Program; Emergency Provider Emergency Medicine; Visit Provider Hospitalist
DX: I63.131 Cerebral infarction due to embolism of right carotid artery (principal); G81.94 Hemiplegia, unspecified affecting left nondominant side; M47.12 Other spondylosis with myelopathy, cervical region; F17.210 Nicotine dependence, cigarettes, uncomplicated; Z71.6 Tobacco abuse counseling; R29.705 NIHSS score 5; I10 Essential (primary) hypertension; M47.22 Other spondylosis with radiculopathy, cervical region; M48.02 Spinal stenosis, cervical region; S82.832A Other fracture of upper and lower end of left fibula, initial encounter for closed fracture; W19.XXXA Unspecified fall, initial encounter; Z79.899 Other long term (current) drug therapy
CPT/HCPCS: 36415; 70496; 70498; 70551; 72141; 73610; 80048; 80061; 81003; 83036; 84484; 85025; 85610; 93005; 93306; 93880; 97110; 97162; 97166; 97530; 97535; 99285; J1650; J1920; Q9957; Q9967

== ENCOUNTER → 2024-06-25 03:15 | Outpatient (BNV) | payer SELFPAY | PROVIDERS: Admitting Provider Student in an Organized Health Care Education/Training Program; Emergency Provider Emergency Medicine; Visit Provider Internal Medicine Cardiovascular Disease | DX: I42.2 Other hypertrophic cardiomyopathy (principal); I51.89 Other ill-defined heart diseases; R94.31 Abnormal electrocardiogram [ECG] [EKG] | CPT/HCPCS: 93010; 93306 ==

== ENCOUNTER → 2024-06-25 09:31 | Outpatient (BNV) | payer SELFPAY | PROVIDERS: Admitting Provider Student in an Organized Health Care Education/Training Program; Emergency Provider Emergency Medicine; Visit Provider Student in an Organized Health Care Education/Training Program | DX: I63.231 Cerebral infarction due to unspecified occlusion or stenosis of right carotid arteries (principal); S82.899A Other fracture of unspecified lower leg, initial encounter for closed fracture; I10 Essential (primary) hypertension | CPT/HCPCS: 99223; 99233; 99239 ==

== ENCOUNTER → 2024-06-25 09:31 | Outpatient (BNV) | payer SELFPAY | PROVIDERS: Admitting Provider Student in an Organized Health Care Education/Training Program; Emergency Provider Emergency Medicine; Visit Provider Psychiatry & Neurology Neurology | DX: I63.231 Cerebral infarction due to unspecified occlusion or stenosis of right carotid arteries (principal) | CPT/HCPCS: 99223 ==

== ENCOUNTER → 2024-06-25 09:31 | Outpatient (BNV) | payer SELFPAY | PROVIDERS: Admitting Provider Student in an Organized Health Care Education/Training Program; Emergency Provider Emergency Medicine; Visit Provider Surgery Vascular Surgery | DX: I63.231 Cerebral infarction due to unspecified occlusion or stenosis of right carotid arteries (principal) | CPT/HCPCS: 99222 ==

== ENCOUNTER 2024-07-22 14:14 | Outpatient (AMB) | payer OTHER, SELFPAY ==
[2024-07-22 14:24] VITALS: BP 156/90; PULSE 112; O2SAT 96
--- NOTE | 2024-07-22 14:24 | A.OFFPC_ITS ---
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 Required: No Allergies Penicillins Allergy (Verified 07/22/24 14:27) Hives Medication List - Last Reconciled 07/22/24 by Shani Gregorio PA-C aspirin 81 mg PO DAILY atorvastatin 40 mg PO BEDTIME lisinopril 10 mg See Protocol PO DAILY multivit with min-folic acid 120 mcg (Women's Multivitamin Gummies) 1 tab PO BID nicotine 21 mg transdermal DAILY nicotine (polacrilex) 2 mg buccal Q2H PRN oxycodone 5 mg PO Q6H PRN Tobacco use date assessed: 07/22/24 Dental Screening Dental Screen Date: 07/22/24 Did you have a dental visit in the last 12 months?: No Did you have a dental problem in the last 6 months where you did not have access to dental care?: No Was dental information given to patient?: Patient has dentist HPI annual exam/ establish care HPI Details 59-year-old female with past medical his tory of CVA coming into the office with the 1st time. In review of the notes patient was seen in [facility] [place]25/[place]24 for evaluation of left-sided weakness. Imaging in the ED found multiple infarcts with age indeterminate and ankle x-ray with distal fibula fracture and patient was admitted for observation. Consult by vascular surgery who recommended outpatient follow up in 2 weeks and consulted by Neurology who agreed starting aspirin, statin, and lisinopril. Consult by orthopedics who recommended 2 week outpatient follow up with left foot cast. Patient is scheduled to see Orthopedics 07/24/2024. Patient does not have any acute concerns today however has not seen a primary care in several years and is behind on most routine screenings. She has never had a colonoscopy or mammogram and has not been enrolled in the lung cancer screening program. Her left foot is still in a cast and she only has pain when she is weight-bearing. She has not yet seen vascular surgery. [facility] Family History (Updated 07/22/24 @ 15:02 by Shani Gregorio PA-C) Father Mesothelioma Mother Breast cancer Social History Household Members: None Housing: House Do you presently have visiting nurse or other home services: No Alcohol intake: current Alcohol intake frequency: a few times a month Patient Tobacco Use Status: Never used Tobacco Tobacco use type: Cigarette Cigarette Packs Per Day: 1 Cigarettes Per Day: 20.0 Years Smoked: 25 yrs e-Cigarette/Vaping Use: Never Used Second Hand Smoke Exposure: Yes service: No Cognitive needs: Yes (wheelchair ) Hearing needs: No Vision needs: Yes (glasses ) Questionnaire PHQ-9 Over the last 2 weeks, how often have you been bothered by any of the following problems? 1. Little interest or pleasure in doing things: not at all 2. Feeling down, depressed, or hopeless: not at all 3. Trouble falling or staying asleep, or sleeping too much: several days 4. Feeling tired or having little energy: several days 5. Poor appetite or overeating: several days 6. Feeling bad about yourself - or that you are a failure or have let yourself or your family down: not at all 7. Trouble concentrating on things, such as reading the newspaper or watching television: not at all 8. Moving or speaking so slowly that other people could have noticed. Or the opposite - being so fidgety or restless that you have been moving around a lot more than usual: not at all 9. Thoughts that you would be better off or of hurting yourself in some way: not at all Total score: 3 00875 - PHQ-9 Billing: Yes Source: Developed by Drs. Mikel Cali, Yael Martins, Adan Garcia and colleagues, with an educational manpreet from [employer] Thrive Questionnaire Date Thrive assessed: 06/26/24 I am a: Patient What is your living situation today?: I have a steady place to live Within the past 12 months, did the food you bought not last and you didn't have the money to get more?: Never true Within the past 12 months, did you worry whether your food would run out before you got money to buy more?: Never true Do you have trouble paying for medicines?: No Do you have trouble getting transportation to medical appointments?: No Do you have trouble paying your heating and electricity bill?: No Do you have trouble taking care of your child, family member or friend?: No Do you have trouble with day-to-day activities such as bathing, preparing meals, shopping, managing finances, etc.?: Yes Are you currently unemployed and looking for a job?: No Are you interested in more education?: No Please select the resources that you would like help with: None THRIVE Score: 0 AUDIT C Alcohol Use Questionnaire (AUDIT-C) 1. How often do you have a drink containing alcohol?: 2-4 times a month 2. How many drinks containing alcohol do you have on a typical day when you are drinking?: 1 or 2 3. How often do you have six or more drinks on one occasion?: Never Total Score: 2 ZOILA-7 AMB Questionnaire ZOILA-7 Date ZOILA - 7 assessed: 07/22/24 Feeling nervous, anxious, or on edge: 0 = Not at all Not being able to stop or control worryin = Not at all Worrying too much about different things: 0 = Not at all Trouble relaxin = Not at all Being so restless that it is hard to sit still: 0 = Not at all Becoming easily annoyed or irritable: 0 = Not at all Feeling afraid as if something awful might happen: 0 = Not at all Total ZOILA-7 score (0-4 normal; 5-9 mild; 10-14 moderate; 15-21 severe): 0 Source: Developed by Drs. Mikel Cali, Yael Martins, Adan Garcia and colleagues, with an educational manpreet from [employer] ZOILA-7 Assessment Billing ZOILA-7 Assessment Tool: ZOILA-7 Assessment 47446 Review of Systems Const Denies body aches, Reports difficulty sleeping, Denies fatigue, Denies fever(s), Denies frequent falls, Denies headache(s) and Denies weakness Eyes Reports no additional complaints and Denies change in vision ENT Denies dysphagia, Denies dizziness, Denies facial pain, Denies headache(s), Denies nasal congestion and Denies odynophagia Card Denies chest pain, Denies syncope, Denies irregular heart rhythm, Denies leg edema, Denies lightheadedness and Denies dyspnea Resp Denies cough and Denies dyspnea GI Denies constipation, Denies dysphagia, Denies dyspepsia, Denies diarrhea, Denies nausea, Denies odynophagia and Denies vomiting Denies urinary frequency, Denies dysuria, Denies urinary hesitancy and Denies urinary urgency Musc Details: left leg pain with ambulation Reports as per HPI, Denies back pain and Denies myalgias Skin/Breast Reports system reviewed and no additional complaints, except as documented Neuro Denies dizziness, Denies syncope, Denies frequent falls, Denies headache(s) and Denies weakness Psych Reports no additional complaints Endo Denies fatigue Physical exam (Primary Care) Vital Signs: Last Vital Signs Pulse 112 H 07/22/24 14:24 BP 156/90 H 07/22/24 14:24 Pulse Ox 96 07/22/24 14:24 Oxygen Delivery Method Room Air 07/22/24 14:24 Tobacco/Smoking Status: Tobacco use Status Tobacco use date assessed 07/22/24 07/22/24 14:30 Patient Tobacco Use Status Never used Tobacco 07/22/24 14:27 Tobacco use type Cigarette 07/22/24 14:27 e-Cigarette/Vaping Use Never Used 07/22/24 14:27 PHQ-9: PHQ-9 Score PHQ-9: Total score 3 07/22/24 15:05 Thrive Assessment: Date of Thrive Assessment Date Thrive assessed 06/26/24 07/22/24 14:27 Const General: cooperative, healthy appearing, comfortable and no acute distress Orientation/consciousness: patient oriented x3 HENMT Head: Yes normocephalic Ears: hearing grossly normal bilaterally General nose exam: Normal external nose present Eyes General: appearance normal, both eyes and all related structures Conjunctivae: conjunctivae normal Neck Neck: Yes full ROM and Yes no lymphadenopathy Resp Effort & Inspection: normal respiratory effort Auscultation: clear to auscultation bilaterally, no crackles, no rales, no rhonchi and no wheezes Cardio Rate: regular rate Rhythm: regular rhythm Skin General skin exam: no rashes or lesions noted Neuro General: patient oriented x3 Gait exam (Neuro): Normal gait present Extrem General: Yes normal to inspection, Yes full ROM and No edema Psych Affect: normal affect Attitude: cooperative Insight: Good insight present (Psych) Judgement: Good judgement present (Psych) Assessment and Plan Assessment & Plan (1) Tobacco abuse: Code(s): Z72.0 - Tobacco use Plan: Enrolled in lung cancer screening program. Strongly advised to stop smoking and prescription was refilled for nicotine patches. (2) Stroke due to stenosis of right carotid artery: Code(s): I63.231 - Cerebral infarction due to unspecified occlusion or stenosis of right carotid arteries Plan: Referral placed for vascular surgery today. Tight control of blood sugar, blood pressure, and cholesterol. (3) Ankle fracture: Code(s): S82.899A - Other fracture of unspecified lower leg, initial encounter for closed fracture Plan: Follow up with orthopedics later this week. (4) Hypercholesterolemia: Code(s): E78.00 - Pure hypercholesterolemia, unspecified Plan: Cholesterol elevated on last blood work. We will order for repeat blood work before next exam. Avoid foods that are high in cholesterol such as red meat, fried foods, eggs and baked goods. Triglyceride goal of less than 150 and LDL goal of less than 100. Continue on atorvastatin. (5) Hypertension: Code(s): I10 - Essential (primary) hypertension Plan: Blood pressure elevated on exam and when retaken. Currently on lisinopril 10 mg may need to consider up titrating. Continue on current blood pressure medication. Avoid salt intake and encourage healthy diet and regular exercise. Follow up at next appointment. (6) Insomnia: Code(s): G47.00 - Insomnia, unspecified Plan: Patient endorses difficulty falling asleep and staying asleep most nights. We will trial mirtazapine daily for sleep as well as appetite stimulation. Plan Referral placed for Cologuard testing, mammogram, bone density scan, and annual lung cancer screening. We will follow up at next appointment for follow up and annual exam. This note was constructed using voice recognition software. While every effort has been made to ensure accuracy and rn otolaryngology, still areas may have been included sometimes these areas may affect the content or meeting of the given symptoms. Total time spent caring for the patient today was 40 minutes. This includes time spent before the visit reviewing the chart, time spent during the visit, and time spent after the visit and documentation. Orders: Orders MM tomosynthesis screening BI Today Z12.31 - Encounter for screening mammogram for malignant neoplasm of breast Lipid Panel 1 Month Z00.00 - Encounter for general adult medical examination without abnormal findings XR DEXA axial skeleton Today Z78.0 - Asymptomatic menopausal state Referrals Lung Cancer Screening Referral Z72.0 - Tobacco use Vascular Surgery Referral I63.231 - Cerebral infarction due to unspecified o cclusion or stenosis of right carotid arteries, I65.21 - Occlusion and stenosis of right carotid artery Cologuard Test Z12.11 - Encounter for screening for malignant neoplasm of colon, Z12.12 - Encounter for screening for malignant neoplasm of rectum Medications: New mirtazapine 7.5 mg PO BEDTIME 30 tabs 1RF Refilled nicotine 21 mg transdermal DAILY 30 ea 0RF Coding Level of Care Code New Pt Level 4 (34140) Diagnoses Tobacco abuse Z72.0 Stroke due to stenosis of right carotid artery I63.231 Ankle fracture S82.899A Hypercholesterolemia E78.00 Hypertension I10 Insomnia G47.00 Additional Codes ZOILA-7 Assessment Billing - ZOILA-7 Assessment Tool: ZOILA-7 Assessment [id number] ([id number])
== END 2024-07-22 15:20 | disposition home or self-care (01) ==
DX: I63.231 Cerebral infarction due to unspecified occlusion or stenosis of right carotid arteries (principal); Z72.0 Tobacco use; S82.899A Other fracture of unspecified lower leg, initial encounter for closed fracture; E78.00 Pure hypercholesterolemia, unspecified; I10 Essential (primary) hypertension; G47.00 Insomnia, unspecified
CPT/HCPCS: 99204

== ENCOUNTER 2024-07-24 09:05 | Outpatient (REF) | payer OTHER, SELFPAY ==
--- NOTE | ~2024-07-24 | XR_ITS ---
EXAMINATION: XR ANKLE, LEFT CLINICAL INFORMATION: Left ankle pain COMPARISON: Radiographs 06/25/2024 TECHNIQUE: AP, lateral, and mortise views of the left ankle. FINDINGS: There has been some callus/mineralization formation adjacent to the oblique fracture of the distal fibula with no significant change in alignment and no definite osseous bridging. The ankle mortise is preserved. XR/XR ankle LT min 3V IMPRESSION: No significant change in alignment of the oblique fracture of the distal fibula. Mild callus formation with no definite osseous bridging. Electronically signed by: Ray Velasco MD 07/30/2024 08:52 AM EDT
== END 2024-07-24 09:06 | disposition home or self-care (01) ==
LOC: HO.XRAY 09:05
PROVIDERS: Visit Provider Physician Assistant
DX: M25.572 Pain in left ankle and joints of left foot (principal)
CPT/HCPCS: 73610; 99202

== ENCOUNTER 2024-07-24 09:48 | Outpatient (AMB) | payer OTHER, SELFPAY ==
--- NOTE | 2024-07-24 10:05 | MHC.OFFVIS ---
Vital Signs 07/24/24 10:10 Height 5 ft Weight 97 lb BMI 18.9 Intake Visit Reasons: ED Follow up, DOI 06/25/24 L distal fib fx Intake Note: Bessie a 59 year old female who presents today for an ER follow up of left ankle, DOI: 06/25/24. She presents today with her daughter. Patient reports a couple of weeks feeling left-sided weakness, and had a fall, twisting her ankle the same day of her ER visit. She presented to [facility] [place] [facility] where xrays were taken and referred to orthopedics. Currently she expresses having pain on lateral aspect of the left ankle only if she applies pressure. She had a splint on up until today's visit, it was removed for x-rays. Patient's daughter expresses patient's swelling improved and that at night is when she has complaints of throbbing pain. She was prescribed oxycodone that she takes as needed for the pain, mainly at night, which she finds relief with. Accompanied by: Daughter Allergies Penicillins Allergy (Verified 07/24/24 10:10) Hives Medication List - Last Reconciled 07/24/24 by Enrrique Alcantara PA-C aspirin 81 mg PO DAILY atorvastatin 40 mg PO BEDTIME lisinopril 10 mg See Protocol PO DAILY mirtazapine 7.5 mg PO BEDTIME multivit with min-folic acid 120 mcg (Women's Multivitamin Gummies) 1 tab PO BID nicotine 21 mg transdermal DAILY nicotine (polacrilex) 2 mg buccal Q2H PRN oxycodone 5 mg PO Q6H PRN HPI HPI ED Follow up, DOI 06/25/24 L distal fib fx: Details: 59-year-old female who presents to the office today with her daughter for an ED follow-up of left ankle injury, 06/25/24. She reports she was experiencing left sided weakness for a couple of weeks and was getting out of bed when she twisted her ankle and sustained a fall. She was seen at ER the same day where x-rays were performed and she was referred to our office. She currently states she has improvement in her swelling however she does have pain at the lateral aspect of her ankle that comes with applying pressure. She also experiences throbbing pain at night. She was using a splint until today?s visit. She finds relief with oxycodone PRN. PFSH Family History Father Mesothelioma Mother Breast cancer Social History Household Members: None Housing: House Do you presently have visiting nurse or other home services: No Alcohol intake: current Alcohol intake frequency: a few times a month Patient Tobacco Use Status: Current everyday Tobacco user Tobacco use type: Cigarette Cigarette Packs Per Day: 1 Cigarettes Per Day: 20.0 Years Smoked: 25 yrs e-Cigarette/Vaping Use: Never Used Second Hand Smoke Exposure: Yes service: No Cognitive needs: Yes (wheelchair ) Hearing needs: No Vision needs: Yes (glasses ) Review of Systems Const All systems reviewed & are unremarkable except as noted in HPI and below Physical Exam Vital Signs: BMI result Body Mass Index 18.9 Const General: cooperative, healthy appearing, comfortable, no acute distress, well developed and alert Orientation/consciousness: patient oriented x3 HEENT Head: Yes normal to inspection, Yes normocephalic and Yes atraumatic Eyes General: appearance normal, both eyes and all related structures Resp Effort & Inspection: normal respiratory effort and able to speak in complete sentences Cardio Rate: regular rate Peripheral pulses: Peripheral pulses 2+ throughout GI Palpation (GI): Soft to palpation Skin Lesions: no lesions Rashes: no rashes Neuro General: patient oriented x3 Extrem Other: Left ankle: Normal to inspection. No tenderness to palpation over the medial or lateral malleolus. Good ROM with mild stiffness. No instability. NVI. Office Procedures Fracture Care Fracture Billing Code: Fracture Billing Code Results Reviewed Results Reviewed: xrays of the left ankle obtained today show healing distal fibular fracture Assessment & Plan Assessment & Plan (1) Closed fracture of left distal fibula: Code(s): S82.832A - Other fracture of upper and lower end of left fibula, initial encounter for closed fracture Category: Medical Plan She was placed in a tall boot weight bearing as tolerated. She will wear the boot when she is ambulating only and remove at all other times. An order for physical therapy was also placed to work on gentle ROM and gentle strengthening, followed by proprioceptive training. I would like to see her back in a month with new x-rays, sooner if needed. Orders: Orders XR ankle LT min 3V Today M25.572 - Pain in left ankle and joints of left foot PT Evaluation and Treatment Today S82.832A - Other fracture of upper and lower end of left fibula, initial encounter for closed fracture Patient Instructions: Scribed for Enrrique Alcantara PA-C, by Florentino Vargas medical practitioners, on 07/24/2024 at 10:00 AM EST.? I, Enrrique Alcantara PA-C, have personally reviewed and agree with the information entered by the scribe. Coding Level of Care Code New Pt Level 3 (98989) Complex EM visit Add On G2211 Diagnoses Closed fracture of left distal fibula S82.832A CPT Codes Fracture Care - Fracture Billing Code: Fracture Billing Code ([id number])
[2024-07-24 10:10] VITALS: BMI 18.9
== END 2024-07-24 11:37 | disposition home or self-care (01) ==
PROVIDERS: Visit Provider Physician Assistant
DX: S82.832A Other fracture of upper and lower end of left fibula, initial encounter for closed fracture (principal)
CPT/HCPCS: 99203; G2211

== ENCOUNTER 2024-08-04 08:48 | Outpatient (AMB) | payer OTHER, SELFPAY ==
[2024-08-04 08:59] VITALS: BP 132/82; BMI 18.9
--- NOTE | 2024-08-04 08:59 | MHC.OFFVIS ---
Vital Signs 08/04/24 08:59 08/04/24 09:07 Height 5 ft Weight 97 lb BMI 18.9 BP 132/82 152/88 H Blood Pressure Location Lt brachial Rt brachial Position Sitting Sitting Intake Visit Reasons: follow up for carotid stenosis Intake Note: Hospital follow up carotid stenosis s/p US 06/25/24. Pt went into the ED for Left UE and LE weakness. Pt states now she doesn't have Left UE weakness but has Left LE weakness still. Pt states Right eye blurred vision. Pt does have Left ankle injury when she fell during episode that lead her to the ED. Accompanied by: Daughter Allergies Penicillins Allergy (Verified 08/04/24 09:04) Hives HPI HPI follow up for carotid stenosis: Details: Very pleasant 59-year-old female who I had seen in the hospital on 06/26/2022 reported left upper and lower extremity weakness for about 2 weeks prior to presentation. She has had be worked up and noted to have right carotid stenosis with stroke. At that time she was was started on aspirin and statin. The MRI dated 06/25/2024 was concerning for infarcts in the right frontoparietal region along with the right DIAZ territory. She subsequently underwent ultrasound and is now for follow-up evaluation. Of note prior to this event she was able to climb a flight of stairs with no issues. She denies any history of shortness of breath. Please note a longitudinal relationship has been created with the patient and we have been following and surveillance this chronic condition. [facility] Family History Father Mesothelioma Mother Breast cancer Social History (Updated 08/04/24 @ 09:05 by ANGEL Rodríguez) Household Members: None Housing: House Do you presently have visiting nurse or other home services: No Alcohol intake: current Alcohol intake frequency: a few times a month Patient Tobacco Use Status: Current everyday Tobacco user Tobacco use type: Cigarette Cigarette Packs Per Day: 0.25 Cigarettes Per Day: 7 Years Smoked: 25 yrs e-Cigarette/Vaping Use: Never Used Second Hand Smoke Exposure: Yes service: No Cognitive needs: Yes (wheelchair ) Hearing needs: No Vision needs: Yes (glasses ) Review of Systems Const All systems reviewed & are unremarkable except as noted in HPI and below Reports no additional complaints ENT Reports Normal hearing present Card Denies chest pain, Denies chest pain at rest, Denies chest pain with activity and Denies pedal edema Resp Denies cough GI Denies abdominal pain Musc Denies abnormal gait, Denies muscle cramps and Denies radiating pain into limb Skin/Breast Denies skin ulcer and Denies wounds Neuro Reports Normal hearing present and Denies abnormal gait Psych Reports no additional complaints Physical Exam Vital Signs: Last Vital Signs BP 152/88 H 08/04/24 09:07 BMI result Body Mass Index 18.9 Const General: cooperative, healthy appearing and comfortable Orientation/consciousness: oriented to person, oriented to place and oriented to time HEENT Head: Yes normal to inspection Neck Neck: Yes normal visual inspection Carotids: no bruits Chest Chest palpation & inspection: normal inspection of the chest Resp Effort & Inspection: normal respiratory effort and able to speak in complete sentences Auscultation: clear to auscultation bilaterally, no crackles, no rales, no rhonchi and no wheezes Cardio Rate: regular rate Rhythm: regular rhythm Heart sounds: S1 normal heart sound present and S2 normal heart sound present Bruits: no carotid bruits Peripheral pulses: Peripheral pulses 2+ throughout GI Inspection: Yes normal to inspection Skin Wounds: no wounds Hair: normal Neuro General: oriented to person, oriented to place and oriented to time Cranial nerves: Yes CN's II-XII intact bilaterally and Yes Normal hearing present Cognition (Neuro): normal cognition Motor exam (neuro): 5/5 motor strength present throughout Extrem Other: venous exam: No significant superficial varicosities or spider telangiectasias, minimal edema General: No clubbing, No cyanosis and No edema Psych Appearance: grossly normal Mental Status: mental status grossly normal Speech and movement: Normal speech and movement present Results Reviewed Results Reviewed: Ultrasound dated 06/26/2024 demonstrates right side 50-79% stenosis with a peak systolic of 237. Eight 2023 CT angiogram demonstrates critical stenosis of the right carotid there is trickle flow through that area. This was confirmed by ultrasound Assessment & Plan Assessment & Plan (1) Stroke due to stenosis of right carotid artery: Code(s): I63.231 - Cerebral infarction due to unspecified occlusion or stenosis of right carotid arteries Category: Medical Plan: In short patient has critical right carotid stenosis. She will require right carotid endarterectomy. Risks benefits complications of the surgery were discussed in detail with the patient. She will require cardiac risk stratification prior to surgery. Of note she did have a prior echo which demonstrated an ejection fraction of 65-70%. We will schedule as soon as possible due to her history of stroke. Thank you for allowing us to assist in her care. Coding Level of Care Code Est Pt Level 4 (49649) Complex EM visit Add On G2211 Diagnoses Stroke due to stenosis of right carotid artery I63.231
[2024-08-04 09:07] VITALS: BP 152/88
== END 2024-08-04 09:36 | disposition home or self-care (01) ==
PROVIDERS: Visit Provider Surgery Vascular Surgery
DX: I63.231 Cerebral infarction due to unspecified occlusion or stenosis of right carotid arteries (principal)
CPT/HCPCS: 99214; G2211

== ENCOUNTER → 2024-08-04 08:48 | Outpatient (BNVA) | payer OTHER, SELFPAY | PROVIDERS: Visit Provider Surgery Vascular Surgery | DX: I65.21 Occlusion and stenosis of right carotid artery (principal); R53.1 Weakness; F17.210 Nicotine dependence, cigarettes, uncomplicated; Z86.73 Personal history of transient ischemic attack (TIA), and cerebral infarction without residual deficits | CPT/HCPCS: 99212 ==

== ENCOUNTER 2024-08-12 13:51 | Outpatient (AMB) | payer OTHER, SELFPAY ==
--- NOTE | 2024-08-12 13:56 | A.OFFVIS_ITS ---
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 Psychopaedic Nurse: Psychopaedic Nurse Present Accompanied by: Friend Allergies Penicillins Allergy (Severe, Verified 08/12/24 10:06) Hives Medication List - Last Reconciled 08/12/24 by Bishnu Shcaeffer MD aspirin 81 mg PO DAILY atorvastatin 40 mg PO BEDTIME cyanocobalamin (vitamin B-12) (Vitamin B-12) 1,000 mcg PO DAILY lisinopril 10 mg See Protocol PO DAILY mirtazapine 7.5 mg PO BEDTIME multivit with min-folic acid 120 mcg (Women's Multivitamin Gummies) 2 tabs PO DAILY nicotine 21 mg transdermal Q OTHER DAY nicotine (polacrilex) 2 mg buccal Q2H PRN oxycodone 5 mg PO Q6H PRN HPI Comments Details: Bessie was referred here for preoperative cardiovascular risk stratification prior to noncardiac surgery for carotid stenosis to undergo carotid endarterectomy under general anesthesia. Considered intermediate risk surgery. Patient noted today to have tachycardia. EKG done today shows sinus tachycardia with diffuse ST T wave changes suggestive of ischemia. Patient has no cardiac symptoms. Denies any chest pain or shortness of breath. Unsure as to why she is tachycardic. She denies being anxious but as per her friend who was present and accompanied her says generally anxious functionality. Denies any palpitations. Takes all her medications. She used to smoke more than a pack a day and has cut down significantly since her diagnosis of carotid disease and stroke. Stroke was incidentally detected after she had an ankle fracture due to numbness in her left lower extremity. She can not exercise at current point in time. Denies any shortness of breath, lightheadedness, syncope. No heart failure symptoms. Echocardiogram done during her hospital admission with CVA showed normal LV EF of 65-70%. [facility] Medical History Ambulates with cane Closed left ankle fracture Weakness of left lower extremity Smoker HLD (hyperlipidemia) HTN (hypertension) History of cerebrovascular accident (~06/25/24) Family History Father Mesothelioma Mother Breast cancer Social History Household Members Other:: daughter Housing: House Are you a primary director career to a significant other at home: No Do you presently have visiting nurse or other home services: No 75 years or older and lives alone: No Alcohol intake: current Alcohol intake frequency: a few times a month Patient Tobacco Use Status: Current everyday Tobacco user Tobacco use type: Cigarette Cigarettes Per Day: 7 Years Smoked: 30+ e-Cigarette/Vaping Use: Never Used Second Hand Smoke Exposure: No Use of substances other than those prescribed or required for medical reasons: No Advance Directives: Yes Advance Directives Information Provided: No Advance Directives on File: Yes Healthcare Proxy: Yes (06/25/2024) service: No Cognitive needs: Yes (wheelchair ) Hearing needs: No Vision needs: Yes (glasses ) Review of Systems Const Denies chills, Denies daytime sleepiness, Denies fatigue, Denies fever(s), Denies frequent falls, Denies poor appetite, Denies snoring, Denies stops breathing during sleep, Denies weakness, Denies weight gain and Denies weight loss Eyes Denies loss of vision ENT Denies dizziness and Denies hearing loss Card Denies chest pain, Denies claudication, Denies leg edema, Denies lightheadedness, Denies palpitations, Denies dyspnea, Denies dyspnea on exertion and Denies orthopnea Resp Denies cough, Denies excessive phlegm production, Denies dyspnea, Denies dyspnea on exertion, Denies snoring and Denies wheezing GI Denies abdominal pain, Denies hematochezia, Denies change in bowel habits, Denies nausea and Denies vomiting Denies urinary frequency and Denies dysuria Musc Denies arthralgias, Denies muscle weakness, Denies numbness and Denies other (frequent falls) Skin/Breast Denies nail changes and Denies rash Neuro Denies Abnormal speech present, Denies dizziness, Denies frequent falls, Denies loss of vision, Denies memory loss, Denies numbness and Denies weakness Psych Denies depression and Denies memory loss Endo Denies fatigue and Denies palpitations Christopher/Lymph Reports easy bruising and Reports other (anemia) Aller/Immun Denies wheezing Physical Exam Vital Signs: Last Vital Signs BP 138/80 08/12/24 13:57 BMI result Body Mass Index 18.1 Const General: cooperative, alert, awake and anxious Nutritional Appearance: thin Orientation/consciousness: patient oriented x3 HEENT Head: Yes normocephalic and Yes atraumatic Neck Neck: Yes trachea midline, Yes supple and Yes no JVD Resp Effort & Inspection: normal respiratory effort Auscultation: no rales, no wheezes and diminished lung sounds Cardio Jugular venous distension: no JVD Rate: tachycardic Rhythm: regular rhythm Heart sounds: S1 normal heart sound present, S2 normal heart sound present, no click, no gallops, no murmurs and no rubs Bruits: carotid bruit on the right GI Auscultation: normal bowel sounds Skin General skin exam: no rashes or lesions noted Neuro General: patient oriented x3 and no focal motor deficits Speech: No Abnormal speech present Extrem General: Yes no clubbing, cyanosis or edema Psych Appearance: grossly normal Affect: Anxious affect present Office Procedures EKG Details: EKG shows sinus tachycardia with diffuse ST depression suggestive of ischemia 31917-[id number], Complete Assessment & Plan Assessment & Plan (1) Pre-operative cardiovascular exam, new EKG abnormalities c/w ischemia: Code(s): Z01.810 - Encounter for preprocedural cardiovascular examination; R94.31 - Abnormal electrocardiogram [ECG] [EKG] Category: Medical Plan: Preoperative cardiovascular risk stratification this middle-aged woman with limited exercise capacity to undergo intermediate risk surgery with carotid endarterectomy with EKG showing sinus tachycardia with ischemia. Given her risk factors she is at high risk for underlying obstructive CAD. This needs to be evaluated further with a myocardial perfusion imaging. Her sinus tachycardia is also concerning me. I would suggest a CTA chest to evaluate for pulmonary embolism given that she has recent ankle surgery with limited mobility. Following that I would suggest her to undergo vasodilating myocardial perfusion imaging to rule out significant myocardial ischemia. Further treatment based on the findings. If she has normal myocardial perfusion imaging, she would be optimized to undergo the procedure with low risk for perioperative cardiovascular morbidity mortality. However given her sinus tachycardia and ischemic EKG changes have strongly suggested to start on Toprol-XL 50 mg daily to achieve heart rate in the 80s prior to the procedure. Further maximize Toprol if she can tolerated with improving baseline heart rate prior to undergoing surgery to reduce myocardial ischemia during anesthesia induction and during surgery. (2) Hypertension: Code(s): I10 - Essential (primary) hypertension Category: Medical Plan: Hypertension which is slightly elevated. Start metoprolol as above. Continue other medications. Continue high-intensity statin therapy. Target goal LDL closer to 60 mg/dL given her premature atherosclerotic disease. Continue low- dose aspirin therapy for life. Consider dual antiplatelet therapy for now. Complete smoking cessation was advised. She understands agrees. Will follow up in the clinic in 1 year's time, sooner p.r.n.. Thank you for allowing me to partake in his care Orders: Orders CA lexiscan stress w nancy Today R94.31 - Abnormal electrocardiogram [ECG] [EKG], Z01.810 - Encounter for preprocedural cardiovascular examination Medications: New metoprolol succinate ER (Toprol XL) 50 mg PO DAILY 30 tabs 5RF Coding Level of Care Code New Pt Level 4 (63330) Diagnoses Pre-operative cardiovascular exam, new EKG abnormalities c/w ischemia Z01.810; R94.31 Hypertension I10 CPT Codes EKG - CPT: 22794-[id number], Complete ([id number])
[2024-08-12 13:57] VITALS: BP 138/80; BMI 18.1
== END 2024-08-12 14:39 | disposition home or self-care (01) ==
PROVIDERS: Visit Provider Internal Medicine Cardiovascular Disease
DX: R94.31 Abnormal electrocardiogram [ECG] [EKG] (principal); I10 Essential (primary) hypertension; Z01.810 Encounter for preprocedural cardiovascular examination
CPT/HCPCS: 93010; 99214

== ENCOUNTER → 2024-08-12 13:51 | Outpatient (BNVA) | payer OTHER, SELFPAY | PROVIDERS: Visit Provider Internal Medicine Cardiovascular Disease | DX: Z01.810 Encounter for preprocedural cardiovascular examination (principal); I10 Essential (primary) hypertension; R94.31 Abnormal electrocardiogram [ECG] [EKG] | CPT/HCPCS: 93005; 99212 ==

== ENCOUNTER 2024-08-13 14:09 | Outpatient (REF) | payer OTHER, SELFPAY ==
--- NOTE | ~2024-08-13 | CT_ITS ---
EXAMINATION: CT CHEST WITH CONTRAST CLINICAL INFORMATION: Tachycardia COMPARISON: None available. TECHNIQUE: Multidetector volumetric CT imaging of the chest was obtained after the administration of 65 mL of Omnipaque 350 intravenous contrast without immediate adverse reactions. Axial MIP volume rendering provided. Sagittal and coronal reformatted images were obtained. This CT examination was performed using dose optimization techniques as appropriate, variously including the following: *Automated exposure control *Adjustment of mA and/or kV according to patient size (this includes techniques or standardized protocols for targeted exams where dose is matched to indication/reason for exam; i.e. extremities or head) *Use of iterative reconstruction technique DLP: 68 mGy-cm FINDINGS: LUNGS: Subpleural emphysematous bullae are seen in posterior right lung apex. Curvilinear dependent atelectasis is seen along the posterior border of right lower lobe. -Nodule #1 (Series 6, image 111): 3.5 mm solid perifissural nodule, anterior border of left lower lobe superior segment attached to left major fissure.. PLEURA: No pleural effusion or pneumothorax is seen. PERICARDIUM: No pericardial effusion is seen. MEDIASTINUM AND MISTY: No abnormally enlarged mediastinal or hilar lymph nodes are seen. TRACHEOBRONCHIAL TREE: Trachea and bilateral mainstem bronchi are patent. THORACIC AORTA: The thoracic aorta is normal in size with scattered atherosclerotic calcifications and smoothly patent. CORONARY ARTERY CALCIFICATIONS: Absent PULMONARY ARTERIES: The main pulmonary arteries show normal enhancement. CHEST WALL AND LOWER NECK: The subcutaneous and muscular chest wall are intact with no focal lesion. No abnormal mass lesion could be seen in the visualized lower neck. BONES: No fracture or dislocation. No focal bone lesion diagnostic of metastatic disease could be seen in the thorax. VISUALIZED UPPER ABDOMEN: Bilateral adrenal glands are not enlarged. CT/CT chest w IV con IMPRESSION: 1. No acute intrathoracic process is seen. 2. 3.5 mm solid perifissural nodule, anterior border of left lower lobe superior segment attached to left major fissure, compatible with intrapulmonary lymph node. According to the UPDATED 2017 Fleischner Society recommendations, the advised follow-up imaging for solid nodules <6 mm in the middle/lower lobes is no routine follow up. 3. Subpleural emphysematous bullae are seen in posterior right lung apex. 4. Curvilinear dependent atelectasis is seen along the posterior border of right lower lobe. Fleischner guidelines were followed. Electronically signed by: Oleg Camacho MD 08/14/2024 08:43 AM EDT RP
[2024-08-13] MEDS: iohexoL 350 MG/ML 100 ML INFUS..BTL 65 ML IV (15:51)
== END 2024-08-13 14:10 | disposition home or self-care (01) ==
LOC: HO.CT 14:09
PROVIDERS: Visit Provider Internal Medicine Cardiovascular Disease
DX: S82.832A Other fracture of upper and lower end of left fibula, initial encounter for closed fracture (principal); R00.0 Tachycardia, unspecified
CPT/HCPCS: 71260; Q9967

== ENCOUNTER 2024-08-24 06:02 | Inpatient (IN) | payer OTHER, SELFPAY ==
[2024-08-12 10:07] VITALS: BP 171/77; PULSE 108; RESP 16; O2SAT 98; BMI 18.7
[2024-08-12 11:34] LABS: Hematocrit 44.4 % (37.0-47.0); Hemoglobin 15.3 g/dl (12.0-16.0); Mean Corpuscular HGB Conc 34.5 g/dl (31.0-35.0); Mean Corpuscular Hemoglobin 33.4 pg (27.0-33.0); Mean Corpuscular Volume 96.9 fL (80.0-98.0); Mean Platelet Volume 10.2 fL (9.4-12.3); Platelet Count 373 X10*3/uL (160-400); Red Blood Count 4.58 X10*6/uL (4.20-5.50); Red Cell Distribution Width 12.3 % (11.0-16.0); White Blood Count 11.7 X10*3/uL (4.8-10.8)
[2024-08-12 11:38] LABS: INTERNATIONAL NORM RATIO 1.1 (0.9-1.1); Prothrombin Time 13.3 SEC (10.9-12.4)
[2024-08-12 11:41] LABS: Partial Thromboplastin Time 32.6 SEC (26.0-36.8)
[2024-08-12 12:20] LABS: Anion Gap 14 (12-20); Blood Urea Nitrogen 8 mg/dL (9-16); Carbon Dioxide 30 mmol/L (22-29); Chloride 103 mmol/L (96-108); Creatinine Clr Calc Pharmacy 53.4; Estimated Glomerular Filt Rate > 60; Glucose Random 82 mg/dL (60-115); Potassium 4.5 mmol/L (3.3-5.1); Sodium 142 mmol/L (135-145)
[2024-08-24] VITALS (27 sets, daily range): BP systolic 117–235; BP diastolic 47–109; PULSE 67–87; RESP 16–20; TEMP 36.2–36.6; O2SAT 95–100; BMI 18.6
--- OUTSIDE RECORDS SUMMARY | 2024-08-24 06:39 | XMS_ITS | Continuity of Care Document ---
Author Organization [facility] ter Address [address] [place] [id number]- Care Team Providers Care [employer] Team Member Name Role Phone Not on Staff, PCP Primary Care Physician Unavail able [place] [facility] [place]): 08/17/24 - 08/20/[address] [id number]- Discharge Disposition: A-D/C Home Attending Physician: Natalie Rondon MD Admitting Physician: Alex Puentes MD Referring Physician: Not on Staff, Referring MD Allergies, Adverse Reactions, Alerts Substance Reaction Severity Status penicillin 1 Active 1hives Medications aspirin 81 mg oral capsule 1 capsule = 81 mg, By Mouth, Daily in AM, 0 Refills, Maintenance, 08/16/24 22:07:00 EDT, Partial fill upon patient request if the prescription is for a schedule II opioid drug. Start Date: 08/16/24 Status: Ordered atorvastatin 40 mg oral tablet 1 tablet = 40 mg, By Mouth, Daily at bedtime, 0 Refills, Maintenance, 08/16/24 22:08:00 EDT, Partial fill upon patient request if the prescription is for a schedule II opioid drug. Start Date: 08/16/24 Status: Ordered lisinopril 10 mg oral tablet 10 mg, 1, tablet, By Mouth, Daily in AM, HOLD UNTIL SURGERY,TAKE HALF TABLET IF SBP >170, # 30 tablet, Refills 0, Maintenance, 08/16/24 22:07:00 EDT, Partial fill upon patient request if the prescription is for a schedule II opioid drug. Start Date: 08/16/24 Status: Ordered mirtazapine 7.5 mg oral tablet 1 tablet = 7.5 mg, By Mouth, Daily at bedtime, # 30 tablet, 0 Refills, Maintenance, 08/16/24 22:08:00 EDT, Partial fill upon patient request if the prescription is for a schedule II opioid drug. Start Date: 08/16/24 Status: Ordered Multivitamin 2 tabs, By Mouth, Daily, 0 Refills, Maintenance, 08/16/24 22:06:00 EDT, Partial fill upon patient request if the prescription is for a schedule II opioid drug. Start Date: 08/16/24 Status: Ordered Vitamin B12 1000 mcg oral tablet 1 tablet = 1,000 mcg, By Mouth, Daily, # 30 tablet, 0 Refills, Maintenance, 08/16/24 22:06:00 EDT, Tablet, Partial fill upon patient request if the prescription is for a schedule II opioid drug. Start Date: 08/16/24 Status: Ordered Problem List Condition Confirmation Course Effective Dates Status H ealth Status Informant Carotid artery stenosis with cerebral infarction Confirmed Active Cerebrovascular accident (CVA) due to occlusion of right carotid artery Confirmed Active Tachycardia Confirmed Active Underweight Confirmed Active Results Radiology Reports * Exam Date Time Procedure Performing Provider Status 08/17/24 4:05 PM MRI Brain W/O Contrast Franko Yin; Ger (Verified) Notes: (MRI Brain W/O Contrast) Reason For Exam: Hemiparesis RESULT: MRI Brain W/O Contrast MRI Brain W/O Contrast INDICATION / CLINICAL QUESTION: Reason: Hemiparesis; Clinical Question(s): Anoxic Ischemic Encephalopathy; Order Comment: Please see Reference Text for complete list of contraindications Anoxic/Ischemic Encephalopathy TECHNIQUE: MRI of the brain was performed without contrast utilizing sagittal T1, axial T2, axial FLAIR, axial SWAN, and axial DWI sequences. COMPARISON: CTA 08/16/2024 the CTA. FINDINGS: No restricted diffusion is noted to indicate acute ischemia. 3 sites of old infarction are demonstrated in the right hemisphere. A 2.8 cm nonhemorrhagic lesion is present in the right middle frontal gyrus. A lesion measuring up to 3.1 cm in diameter is present involving the lateral margin of the superior frontal gyrus, extending to its junction with the precentral gyrus. There is a small amount hemosiderin deposition in this region indicating old hemorrhage. A 3 cm mixed signal intensity lesionconsistent with an old infarct is present in the medial right parietal lobe extending inferiorly from the vertex and extending to the post central gyrus. This also contains areas of old hemorrhage. Presumed gliosis extends into deeper white matter from these lesions. A few scattered subcortical white matter lesions are noted elsewhere. A larger 1.1 cm area of FLAIR hyperintensity is present in the inferior posterior left frontal lobe just superior to the sylvian fissure. There is no evidence ofdiffusion or hemorrhage but this lesion may involve both cortex as well as subcortical white matter. Minor T2 hyperintensity in the paramedian talon is consistent with chronic ischemia. Small bilateral cerebellar lacunes are noted. No extra-axial collection or mass effect is present. The ventricular system is normal. The right internal carotid artery flow void is slightly smaller than the left and is not as T2 hypointense suggesting slow flow with a critical stenosis is shown on prior CT angiography of the neck. No vascular abnormality is noted elsewhere. The foramen magnum is normal. Moderate mucosal disease is present in the left maxillary and sphenoid sinuses without an air-fluidlevel. The orbits are normal. The upper cervical cord and spine are normal. IMPRESSION: 1. No evidence of acute ischemia. 2. 3 old infarcts are noted in the right cerebral hemisphere, with areas of associated hemorrhage in the right superior frontal gyrus and superior right parietal lobe. 3. Reduced caliber and slightly increased T2 signal intensity of the right internal carotid artery flow void, likely correlating with slow flow and the critical origin stenosis is shown on prior CT angiography. WSN: [id number] Ordering Physician: Lashaun Clark Dictated By: Oli Jordan MD Dictated Date/Time: 08/17/24 4:24 pm Reviewed By: Oli Jordan MD Signed By: Oli Jordan MD Signed Date/Time: 08/17/24 4:24 pm Transcribed By: IVONNE Transcribed Date/Time: 08/17/24 4:15 pm Vital Signs Most recent to oldest [Reference Range]: 1 2 3 Weight 40.1 kg (08/17/24 12:00 AM) Oxygen Saturation [94-100 %] 96 % (08/20/24 12:09 PM) 95 % (08/20/24 11:00 AM) 95 % (08/20/24 7:00 AM) Pulse Rate [55-90 bpm] 119 bpm *H* (08/20/24 12:09 PM) 102 bpm *H* (08/20/24 11:00 AM) 104 bpm *H* (08/20/24 7:00 AM) Blood Pressure [90-138/55-84 mm Hg] 149/92mm Hg *H* (08/20/24 12:09 PM) 144/79mm Hg *H* (08/20/24 11:00 AM) 135/62mm Hg (08/20/24 7:00 AM) Respiratory Rate [16-30 br/min] 18 br/min (08/20/24 12:09 PM) 16 br/min (08/20/24 11:00 AM) 16 br/min (08/20/24 7:00 AM) Temperature [96.8-100.4 DegF] 98.4 DegF (08/20/24 12:09 PM) 98.4 DegF (08/20/24 11:00 AM) 98.1 DegF (08/20/24 7:00 AM) Mode of Delivery (Oxygen) Room air (08/20/24 12:09 PM) Room air (08/20/24 11:00 AM) Room air (08/20/24 7:00 AM) Blood pressure sites Arm, left (08/20/24 12:09 PM) Arm, left (08/20/24 11:00 AM) Arm, right (08/20/24 7:00 AM) Temperature Route Oral (08/20/24 12:09 PM) Oral (08/20/24 11:00 AM) Oral (08/20/24 7:00 AM) Dry Weight 40.1 kg (08/17/24 1:37 AM) Weight Obtained Via Bed scale (08/17/24 12:00 AM) Dry Weight Obtained Via Bed scale (08/17/24 1:37 AM) Social History Social History Type Response Smoking Status 10 or more cigarette s (1/2 pack or more)/day in last 30 days entered on: 08/16/24 Sex History and physical note * Lashaun Clark MD: PERFORM Event Display: History and Physical Hospital Authored Date: [id number] Patient: ??LENNIE PETTY ? Age:??59 Years?Sex:??Female?:??1965?? Chief Complaint/Reason for Consultation LLE weakness, worse than baseline History of Present Illness The pt is 59 y.o F w pmhx of recent stroke in right??MCA??territory (right frontal infarct on CTH) with left??weakness previously seen??at [facility] due to having??right carotid??surgerynext Saturday??and??presented to [facility] with LKWT 1999. She was noticed having??increasing left sided weakness and fell, denied hitting her head or LOC. Pt is on aspirin and reported left leg weaker than baseline. CTH shows small of possible??petechial??heme??component??as well as dystrophic calcification and??with recent??stroke trauma to head ??and??possible??petechial??heme components not??candidate??for [employer]. CTA showed no prox LVO but high grade near occlusion in??Right ICA at origin with distal intracranial reconstitution of flow. Neurology was consulted and recommended pt be transferred here. She states her symptoms are better now.?? Review of Systems Comprehensive review negative unless mentioned as above.?? Objective Measurements?? Weight: 40.1 kg (08/17/24) Dry Weight: 40.1 kg (08/17/24) ?? Vital Signs?? Temperature: 98.2 DegF (08/17/24 00:00:00) Temperature Route: Temporal (08/17/24 00:00:00) Pulse Rate: 79 bpm (08/16/24 23:43:00) Heart Rate Monitored: 78 bpm (08/17/24 02:00:00) Respiratory Rate: 21 br/min (08/17/24 02:00:00) Systolic Blood Pressure: 115 mm Hg (08/17/24 02:00:00) Diastolic Blood Pressure: 59 mm Hg (08/17/24 02:00:00) Blood pressure sites: Arm, left (08/17/24 00:00:00) Mean Arterial Pressure: 104 mm Hg (08/16/24 21:30:00) Pulse Pressure: 56 mm Hg (08/17/24 02:00:00) Oxygen Saturation: 95 % (08/17/24 02:00:00) Mode of Delivery (Oxygen): Room air (08/17/24 00:00:00) Early Warning Score: 4 (08/17/24 03:03:37) ?? Pain Scores?? No qualifying data available. ?? Intake/Output?? No Data Available ?? [place] Coma Scale Mj Coma Score: 15 (08/17/24 00:50:00) Motor Response-Adult: Obeys commands (08/17/24 00:50:00) Response Eye Opening: Spontaneously (08/17/24 00:50:00) Verbal Response-Adult: Oriented and converses (08/17/24 00:50:00) ? Physical Exam Constitutional: Alert, in no distress. Mental Status: Oriented to person, place and time. Head: Normocephalic. Eyes: Pupils are equal, round and reactive to light. Extraocular muscles intact. Ear, Nose and Throat: Oropharynx clear, mucous membranes moist. Trachea midline. Neck: Supple, Full range of motion. Respiratory: Clear to auscultation. No wheezing, rales or rhonchi. Cardiovascular: S1 S2 regular. No murmurs, rubs or gallops. Gastrointestinal: Abdomen soft, non-tender, non-distended. Normal bowel sounds.?? Neurologic: Cranial nerves II-XII grossly intact. No new??focal neurological deficits. RUE and??LUE??5/5??w normal??sensation??bilaterally.??LLE??motor??3/5 w??decreased sensation and??RLE??4-5/5??w??normal sensation.?? Skin: No rashes or lesions. No petechiae or purpura.?? Musculoskeletal: No cyanosis or clubbing. No gross deformities. Normal range of motion. Psychiatric: Normal mood and affect ?? CTA head and neck as abve Assessment/Plan ?? CVA (cerebral vascular accident) ??(I63.9) Elevated LFTs ??(R79.89) HTN (hypertension) ??(I10) Hyperlipidemia ??(E78.5) Insomnia ??(G47.00) Tobacco abuse ??(Z72.0) ?? Per Neurology prelim report DD: worsening of current stroke vs recurrent right ICA??embolic??events. Plan: -Pt will benefit from PIERO??tfr??to [facility] [place] both??management fop??right ICA and frequent??neuro checks, -Contique??asa for now until MRI can clarify the acuity of the lesions and petechial??vs??dystrophy/laminar??necrosis -statin once swallow passed -Bed side swallow eval per nursing now, in am by Rehab MD -PT and PMR??consulted??in AM -check Lipid and a1c -Avoid excessive BP drop, due to high grade MIR stenosis- permissive HTN to 180. -Formal??neuro??consult??to determine right??ICA??plans. -Surgery was planned next week Oct 7 at [facility]. More emergent per Neurology? vs doing as planned -Labs pending ?? HTN Plan -Permissive HTN -Holding metoprolol -Holding Lisinopril -Keep HOB??lower -PRN IVF if BP low and pt is symptomatic? HLP Elevated LFTs Plan -Statin -Hgba1c and lipid panel in am -Monitor LFTs ?? Insomnia Plan -Cont Mirtazapine ?? Nicotine abuse Plan -Cont patch ?? Quality Measures Dvt, high risk,?? SCDs for now, once bleed ruled out w MRI, consider chemical NPO now, getting swallow eval, if clears, will give cardiac diet Full code Histories Allergies Allergies ?(Active and Proposed Allergies Only) penicillin? (Severity: Unknown severity, Onset: Unknown) ?Comments: hives ?? Past Medical History/Problem List Active Problems(1) Underweight HTN HLP CVA ?? Past Surgical History No surgery history documented. ?? Social History Tobacco Details:??Use: 10 or more cigarettes (1/2 pack or more)/day in last 30 days. ?? Family History No Family History documented. Medications Home Medications Aspirin (aspirin 81 mg oral capsule)?1?capsule?81?Milligram?By Mouth?Daily in AM Atorvastatin (atorvastatin 40 mg oral tablet)?1?tab(s)?40?Milligram?By Mouth?Daily at bedtime Cyanocobalamin (Vitamin B12 1000 mcg oral tablet)?1?tab(s)?1,000?Microgram?By Mouth?Daily Lisinopril (lisinopril 10 mg oral tablet)?10?Milligram?1?tablet?By Mouth?Daily Elizabeth Mirtazapine (mirtazapine 7.5 mg oral tablet)?1?tab(s)?7.5?Milligram?By Mouth?Daily at bedtime Multivitamin?2 tabs?By Mouth?Daily Nicotine patch ?? Inpatient Medications Medications (14) Active SCHEDULED: (6) Aspirin 81 mg Chew Tablet (aspirin 81 mg oral tablet, chewable) ??81 mg, By Mouth, Daily in AM Atorvastatin 40 mg Tablet (atorvastatin 40 mg oral tablet) ??40 mg, By Mouth, Daily at bedtime Mirtazapine 15 mg Tablet (mirtazapine 15 mg oral tablet) ??7.5 mg, By Mouth, Daily at bedtime NaCl 0.9% Flush 3ml (NaCL 0.9% Flush) ??3 mL, IV Push, Every 8 hours Nicotine 7 mg / 24 hour Patch (Nicotine Topical) ??7 mg, Topically, Daily Remove Patch (Remove ??Patch) ??1 each, Topically, Daily CONTINUOUS: (0) PRN: (8) Acetaminophen 325 mg Tablet (Acetaminophen Tablet) ??650 mg, By Mouth, Every 4 hours Dextromethorphan-Guaifenesin 20 mg-200 mg/10 mL Liqu UD (Robitussin DM Liquid) ??10 mL, By Mouth, Every 4 hours Docusate Sodium 100 mg Capsule (Docusate Sodium Capsule) ??100 mg 1 capsule, By Mouth, 2 times a day Melatonin 3 mg Tablet (Melatonin Tablet) ??3 mg, By Mouth, Daily at bedtime NaCl 0.9% Flush 3ml (NaCL 0.9% Flush) ??3 mL, IV Push, Every 8 hours Polyethylene Glycol 17 Gm Powder (MiraLax Powder) ??17 Gm 1 pack/packet, By Mouth, Daily Senna Tablet ??8.6 mg 1 tablet, By Mouth, 2 times a day Simethicone 80 mg Chewable Tablet (Simethicone Tablet) ??80 mg, Chew, 3 times a day Results Recent Labs BLOOD COUNT & DIFF WBC 10.7 k/mm3 ()?? 08/16/2024 21:53 RBC 4.28 m/mm3 ()?? 08/16/2024 21:53 Hgb 14.2 Gm/dL ()?? 08/16/2024 21:53 Hct 41.6 % ()?? 08/16/2024 21:53 MCV 97.2 femtoliters ()?? 08/16/2024 21:53 MCH 33.2 pg ()?? 08/16/2024 21:53 MCHC 34.1 Gm/dL ()?? 08/16/2024 21:53 Platelet Count 383 k/mm3 ()?? 08/16/2024 21:53 RDW-SD 44.0 femtoliters ()?? 08/16/2024 21:53 MPV 10.3 femtoliters ()?? 08/16/2024 21:53 Nucleated RBC (Automated) 0.0 #/100 WBC'S ()?? 08/16/2024 21:53 Abs. NRBC 0.0 k/mm3 ()?? 08/16/2024 21:53 Abs. Neut 5.6 k/mm3 ()?? 08/16/2024 21:53 Abs. Lymph 3.6 k/mm3 (High)?? 08/16/2024 21:53 Abs. [place] 1.0 k/mm3 (High)?? 08/16/2024 21:53 Abs. Eo 0.3 k/mm3 ()?? 08/16/2024 21:53 Abs. Baso 0.1 k/mm3 ()?? 08/16/2024 21:53 Neut % 52.3 % ()?? 08/16/2024 21:53 Lymph % 33.7 % ()?? 08/16/2024 21:53 [place] % 9.4 % ()?? 08/16/2024 21:53 Eos % 2.8 % ()?? 08/16/2024 21:53 Baso % 1.0 % ()?? 08/16/2024 21:53 Imm Gran 0.8 % ()?? 08/16/2024 21:53 Abs. Imm Gran 0.1 k/mm3 ()?? 08/16/2024 21:53 ?? CHEM GENERAL Sodium 135 mmol/L ()?? 08/16/2024 21:53 Potassium 4.4 mmol/L ()?? 08/16/2024 21:53 Chloride 99 mmol/L ()?? 08/16/2024 21:53 Bicarbonate Level 26 mmol/L ()?? 08/16/2024 21:53 Anion Gap 10 ()?? 08/16/2024 21:53 Glucose Level 84 mg/dL ()?? 08/16/2024 21:53 Glucose, POC 81 mg/dL ()?? 08/16/2024 21:35 BUN 8 mg/dL ()?? 08/16/2024 21:53 Creatinine-Blood 0.63 mg/dL ()?? 08/16/2024 21:53 Estimated GFR Creatinine 101 ML/MIN/1.73 M2 ()?? 08/16/2024 21:53 Calcium 9.0 mg/dL ()?? 08/16/2024 21:53 Protein, Total 6.8 Gm/dL ()?? 08/16/2024 21:53 Albumin 4.1 Gm/dL ()?? 08/16/2024 21:53 AG Ratio 1.5 ()?? 08/16/2024 21:53 Alkaline Phosphatase 109 units/L (High)?? 08/16/2024 21:53 AST (SGOT) 34 units/L (High)?? 08/16/2024 21:53 ALT (SGPT) 37 units/L (High)?? 08/16/2024 21:53 Bilirubin, Total 0.2 mg/dL ()?? 08/16/2024 21:53 ?? COAG INR 1.1 ()?? 08/16/2024 21:53 Protime (PT) 11.9 seconds (High)?? 08/16/2024 21:53 ?? MISC. CHEMISTRY Hold Gel Top SPECIMEN DISCARDED AFTER 1 WEEK ()?? 08/16/2024 21:53 ?? UA/URINALYSIS Appear/Color, Urine COLORLESS ()?? 08/16/2024 21:47 Clarity CLEAR (N)?? 08/16/2024 21:47 Specific [place], Urine <1.005 ()?? 08/16/2024 21:47 pH, Urine 6.5 ()?? 08/16/2024 21:47 Albumin, Urine NEGATIVE (N)?? 08/16/2024 21:47 Glucose, Urine NEGATIVE (N)?? 08/16/2024 21:47 Ketones, Urine NEGATIVE (N)?? 08/16/2024 21:47 Bilirubin, Urine NEGATIVE (N)?? 08/16/2024 21:47 Hemoglobin, Urine NEGATIVE (N)?? 08/16/2024 21:47 Nitrite, Urine NEGATIVE (N)?? 08/16/2024 21:47 Leukocyte, Urine NEGATIVE (N)?? 08/16/2024 21:47 Urobilinogen NORMAL mg/dL (N)?? 08/16/2024 21:47 Hold Urine Culture Testing available 48 hours from time of collection. ()?? 08/16/2024 21:47 ?? URINE OTHER Est Creatinine Clearance 60.70 mL/min ()?? 08/16/2024 22:23 ?? VIROLOGY COVID-19 by RT-PCR NEGATIVE ()?? 08/16/2024 21:55 ?? Abnormal Labs No lab data available. ?? CBC, CBC w/Diff?? No qualifying data available. ?? BMP, Mg, and Phos?? No qualifying data available. ?? Coagulation Profile?? No qualifying data available. ?? LFT?? No qualifying data available. ?? Urinalysis?? No qualifying data available. ?? Blood Gases?? No qualifying data available. ? US.doppler Carotid arteries - bilateral * Event Display: VL Carotid Duplex Scan Bilat Authored Date: [id number] Demographics Procedure Information Patient name: CARLOS HOGUE Procedure date: 08/18/2024 2:13 PM Corporate Proc. sub type: Cerebral: Carotid, Carotid Duplex Scan Bilateral. Gender: Female Accession No: [id number] Date of : 1965 Account No: [id number] Age: 59 year(s) Patient status: Routine Admit Status: Inpatient Procedure Staff Probe: L 2-9 Attending Physician: JOHN Marsh Technical quality: Adequate visualization Ordering physician: JOHN Marsh Facility: [facility] Referring Physician: JOHN Marsh Study location[place] [facility] Supervisor [employer]: Socorro Duke RVT Interpreting physician: Debbie Cleveland Procedure consent obtained: No Indications Carotid stenosis. Carotid Procedure Findings Right Left Location PSV (cm/s) EDV (cm/s) Plaque Characteristics PSV (cm/s) EDV (cm/s) Plaque Characteristics Prox CCA 108.7 8.9 Heterogeneous 156.9 35.8 Heterogeneous Dist CCA 57.5 7.7 Heterogeneous 151.7 33.2 Heterogeneous Bulb 50 8.6 Heterogeneous 151.7 30.7 Heterogeneous Prox ICA 162 51.3 Heterogeneous 137.1 26.3 Heterogeneous Mid ICA 24 4.8 138.5 36.3 Dist ICA 23.3 4.1 130.5 45.2 Prox ECA 423.5 15.6 262.3 23.1 Vertebral 117.4 41.6 128.6 32.5 Prox Subclavian 192.9 0 265 0 Right ICA/CCA ratio: 2.82 Right verterbral flow: Antegrade Left ICA/CCA ratio: 0.91 Left verterbralflow: Antegr Carotid Plaque Details Left ICA/CCA ratio: 0.91 Left verterbral flow: Antegrade Right ICA/CCA ratio: 2.82 Right verterbral flow: Antegrade Physician Conclusions Summary: Right Side: 1-49% stenosis in the Internal Carotid Artery. Narrowed flow is visualized in the proximal segment.Decreased flow velocities are detected in the mid to distal segments. Known near occlusion of the artery from prior CT scan. Antegrade flow in the Vertebral Artery. Multiphasic flow is seen in the Subclavian Artery. Left Side: 1-49% stenosis in the Internal Carotid Artery. Antegrade flow in the Vertebral Artery. Multiphasic, elevated velocity flow is seen in the Subclavian Artery. Comparison is made to the previous CT study dated 08/16/24. Recommendations: Clinically correlate with previous CT scan, marked reduction in flow in the mid to distal ICA on the right * Event Display: VL Carotid Duplex Scan Bilat Authored Date: [id number] Cardiology * Event Display: Cardiac Rhythm Strips Authored Date: * Event Display: Stress Nuc with Regadenoson Authored Date: Please click on pdf link to open report Hospital Progress note * Olesya Zhong: PERFORM Event Display: Progress Note Hospital Authored Date: Patient: ??LENNIE PETTY ? Age:??59 Years?Sex:??Female?:??1965?? History of Present Illness ??MRI??08/17??revealing no new findings.??Stress test done yesterday 08/19 to prepare for scheduled OP vascular procedure scheduled for 08/24 at [facility]. Physical Exam Vitals & Measurements T:??98.4?F?? HR:??119??(Peripheral)?? RR:??18?? BP:??149/92?? SpO2:??96%?? WT:??40.1??kg?? Measurements?? Weight: 40.1 kg (08/17/24) Dry Weight: 40.1 kg (08/17/24) ?? General:??Alert.?? No apparent distress. Psychiatric: Mood:??Normal.?? Pleasant & Cooperative Oriented X 3 ?? HEENT: Cranial Nerves II-XII:??Normal, no central facial droop.?? EOMI.?? No diplopia or disconjugate gaze. ??No nystagmus. ?? Tracks:??Bilaterally ?? Extremities:?? Edema:??None.?? Passive ROM:??Normal all limbs.? Neurologic?? Follows Commands:??1 step well ?? can cross body to command well.?? Language:??Normal. ?Dysarthria:??None. ??Dysphonia:??None.? Motor Exam: Motor strength 5/5, left side improved, trace weakness when compared.?? Sensory Exam: light touch??improved to left??no extinction to double simultaneous stimulation.??_ Coordination Exam: finger to nose??normal, Fine motor coordination??normal. Deep Tendon Reflexes 2+ uppers, 2+ right patella with spread to left, 3+ left patella Spasticity Exam: Mild tone at left bicep??and left quad ?? Mobility Exam:??Supine to sit independent,??sitting balance independent ? Assessment and Plan 59 year old RH female with recent right??MCA and left sided weakness presented to [facility] with increased left sided weakness from baseline. Transferred to [facility] [place] w/up. CTA and CTH??with known pathology. Was scheduled to have??right ICA surgery on Aug 24 for which she was able to have pre-opstress test while inpatient here.??MRI??with no changes. PT evaluated and rec home with OP services.? Recommendations: Activity:??Encourage ambulation with supervision DVT prophylaxis: Subcu heparin ?? Neurology:??Appreciate Neurology Note. Pain Management: No complaints?? Spasticity: Mild tone at right??extremities likely from her prior stroke, monitor. ?? Swallow:??No dysphagia. Continue regular texture diet. ?? Current rehab treatment & further recommendations: Occupational Therapy: Receiving?? Physical Therapy:??Receiving? Disposition: Home with??OP PT, will likely??need??left??orthotic??to help with ambulation.??Discussed with??patient.??Rehab??will be able to assess??her needs and order??accordingly.? Code Status:??Full Code (Confirmed) HCP:??yes Problem List/Past Medical History Ongoing Carotid artery stenosis with cerebral infarction Cerebrovascular accident (CVA) due to occlusion of right carotid artery Tachycardia Underweight Procedure/Surgical History No qualifying data available. Hospital Medications Medications (16) Active SCHEDULED: (8) Aspirin 81 mg Chew Tablet (aspirin 81 mg oral tablet, chewable) ??81 mg, By Mouth, Daily in AM Atorvastatin 40 mg Tablet (atorvastatin 40 mg oral tablet) ??40 mg, By Mouth, Daily at bedtime Heparin 5000 units/mL Inj (1 mL) (Heparin Inj) ??5,000 units 1 mL, Subcutaneous Injection, 2 times a day Mirtazapine 15 mg Tablet (mirtazapine 15 mg oral tablet) ??7.5 mg, By Mouth, Daily at bedtime NaCl 0.9% Flush 3ml (NaCL 0.9% Flush) ??3 mL, IV Push, Every 8 hours Nicotine 21 mg / 24 hour Patch (Nicotine Topical) ??21 mg, Topically, Daily Remove Patch (Remove ??Patch) ??1 each, Topically, Daily Remove Patch (Remove ??Patch) ??1 each, Topically, Daily CONTINUOUS: (0) PRN: (8) Acetaminophen 325 mg Tablet (Acetaminophen Tablet) ??650 mg, By Mouth, Every 4 hours Dextromethorphan-Guaifenesin 20 mg-200 mg/10 mL Liqu UD (Robitussin DM Liquid) ??10 mL, By Mouth, Every 4 hours Docusate Sodium 100 mg Capsule (Docusate Sodium Capsule) ??100 mg 1 capsule, By Mouth, 2 times a day Melatonin 3 mg Tablet (Melatonin Tablet) ??3 mg, By Mouth, Daily at bedtime NaCl 0.9% Flush 3ml (NaCL 0.9% Flush) ??3 mL, IV Push, Every 8 hours Polyethylene Glycol 17 Gm Powder (MiraLax Powder) ??17 Gm 1 pack/packet, By Mouth, Daily Senna Tablet ??8.6 mg 1 tablet, By Mouth, 2 times a day Simethicone 80 mg Chewable Tablet (Simethicone Tablet) ??80 mg, Chew, 3 times a day Follow-Up Appointments Added Follow Up ?Time Frame ?Comments Trisha Wong MD, Shaniqua Lab Results PM&R Labs WBC:??12.1 k/mm3??High (08/19/24) Platelet Count: 336 k/mm3 (08/19/24) Sodium: 140 mmol/L (08/19/24) BUN: 10 mg/dL (08/19/24) Creatinine-Blood: 0.63 mg/dL (08/19/24) AST (SGOT): 22 units/L (08/19/24) ALT (SGPT): 26 units/L (08/19/24) * Lilly MANZANO, Iris: PERFORM, SIGN, VERIFY Event Display: Progress Note Hospital Authored Date: [id number] Patient: LENNIE PETTY Age: 59 years Sex: Female : 1965 Associated Diagnoses: None Author: Lilly MANZANO, Iris Findings Problem Related to Alteration in Neurological : Alteration in Neurological Function/new 08/19/2024 22:00 EDT Alteration in Neuro status Related to Other: Worsening or currrent stroke versus Recurrent right ICA embolic event Goals & Outcomes, Neurological Lab studies/diagnostic tests within pt specific limits, Pt is safe with transfers & activities, Pt will be hemodynamically stable, Pt will be Neurologically stable, Pt will maintain intact skin integrity, Pt will remain free from injury, Pt will resume/maintain adequate cardiac output, Pt will state importance of adhering to medication regime, Pt/caregiver will state understanding of disease process, Pt/caregiver will state understanding of plan/goals of care Interventions, Neurological Assess/monitor neurologic status, Assess/monitor VS per unit standards & prn, Call/Report variances in assessments to provider, Collaborate w/ provider to implement appropriate guidelines, Collaborate with Nutrition, Collaborate with provider re: medication regime, Document & Monitor O2 Sats; Administer O2 as ordered, Identify psychosocial issues related to diag nosis/illness, If no bowel movement in 3 days activate bowel regime, Humble alternate means of communication, Keep patient's head & body in good alignment, Maintain HOB at least 30 deg, Maintain normothermia, report temp >101.5 F, Maintain patient safety if unsteady gait, Maintain strict intake & output, Monitor Fluid & Electrolytes, Serum Osmolarity, Monitor for headaches, nausea, vomiting, Monitor speech fluency, aphasia, word finding difficulty, Physical assessment per unitstandards, Provide emotional support to Pt/caregiver, Teach & encourage deep breath & coughexercises, Teach and encourage use of Incentive spirometer, Teach pt/caregiver on plan of care, treatment, s/s & meds, Teach pt/caregiver on use of pain scale BH Goals/Interventions, Neurological Yes Neurological, Problem Start 08/17/2024 0:40 Reviewed plan with, Neurological Patient Patient Progression, Neurological Pt progressing according to plan . Nursing Data Neurological Data. : Neurological Data. 08/19/2024 21:00 EDT Tongue Disposition Midline Neurological Symptoms Weakness or loss of muscle strength Level of Consciousness Full Consciousness Orientated to person, place, time Person, Place, Time Facial Symmetry Intact Characteristics of Speech Clear and normal Pupil description, left Regular Pupil description, right Regular Pupil reaction, left Brisk Pupil reaction, right Brisk Strength LUE 4-Active movement against gravity & some resistance Strength RUE 5-Active movement against gravity & full resistance Strength LLE 4-Active movement against gravity & some resistance Strength RLE 5-Active movement against gravity & full resistance Tone LUE Normal Tone RUE Normal Tone LLE Normal Tone RLE Normal Sensation LUE Intact Sensation RUE Intact Sensation LLE Intact Sensation RLE Intact Movement LUE Spontaneous Movement RUE Spontaneous Movement LLE Spontaneous Movement RLE Spontaneous Gait Steady Response Eye Opening Spontaneously Motor Response-Adult Obeys commands Verbal Response-Adult Oriented and converses [place] Coma Score 15 Neuro WNL except Eyes and Movements Conjugate gaze: Move in same direction at same speed Swallow - Neuro Normal . Evaluation A/O X4. Speech clear, able to verbalize needs and follow commands. Face symmetrical, tongue midline. PERRL. LINARES. SBA with FWW, gait steady and balanced. On tele - SR, sinus tachy, asymptomatic. LS CTA. Continent of B/B. Denies any pain/discomfort, DE LA PAZ, N/V, numbness/tingling. Bed in low position andbed alarm on for safety. Call light within reach. See CIS for full bio . Discharge Information Rehabilitation Discharge : Rehab Discharge Index 08/19/2024 13:41 EDT Walker: distance >50 08/19/2024 10:38 EDT Comments on treatment indicated OT to address ADL's, transfers, safety, LUE function Full chart review completed Yes Hospital course Please see comment Transfer tub/shower OT Plan Independent 08/17/2024 10:04 EDT Comments on treatment indicated 59 y/o female with h/o CVA in June of this year presenting with left side weakness and a fall with (+) headstrike. Imaging concerning for evolving vs. recurrent CVA. PT for transfers, ambulation, ther-ex. Rec post-acute rehab placement. Walker: distance >50 Distance pt will ambulate 250ft Full chart review completed Yes Hospital course Per chart: Other findings Per comment: Plan of care PT Gait training, Transfer training, Therapeutic exercise, Functional Activities, Balance training, Neuromuscular education * Elena Parmar RN: VERIFY, PERFORM, SIGN Event Display: Progress Note Hospital Authored Date: Patient: LENNIE PETTY Age: 59 years Sex: Female : 1965 Associated Diagnoses: None Author: Elena Parmar RN Findings Narrative/Incidental Pt arrived to unit from [facility], oriented to room, staff and call young, meal tray ordered, pt made comfortable in bed, socks changed to brown, pt ambulating steady with walker to BR, pt asking to be allowed to be independent, denies pain, DE LA PAZ, N/T, N/V or dizziness, LINARES LLE slightly weaker than rest, ptasking for nicotine patch which was already placed on left shoulder prior to transfer, meal tray ordered, pt states had a BM this afternoon prior to transfer, awaiting rehab placement, mood pleasant,call young in reach, safety maintained, hourly rounding, bed in lowest locked position, will continue to monitor and document changes in CIS.. Consult note * Olesya Zhong: PERFORM, MODIFY Olesya Zhong: MODIFY Bebeto LOWRY, Quintin: MODIFY, MODIFY Bebeto LOWRY, Quintin: MODIFY, MODIFY Bebeto LOWRY, Quintin: MODIFY, MODIFY Bebeto LOWRY, Quintin: MODIFY Event Display: Consultation Note Authored Date: Patient: ??LENNIE PETTY ? Age:??59 Years?Sex:??Female?:??1965?? History of Present Illness 59 year old??RH female with PMHX of right MCA almost 2 months ago. Was supposed to have right carotid procedure 08/24 (at [facility]) but left sided weakness was worsening and caused multiple falls yesterday evening, denies LOC or head strike. 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 On CTH??chronic changes??seen without??evidence of acute??pathology. MRI brain pending.??Passed nursing bedside swallow 08/17. ?? Of note,??she recently??fractured her left ankle??due to??inversion??when she bore weight??and was put in a fracture boot??which she is supposed to be using for at least one more week. ?? Social: Walks with cane at baseline. Lives with daughter but will be moving soon where she will need to descend??1 flight of steps to get in her home. Her son who is accompanying her today lives near her new apartment. She does usually drive and plans to resume driving once cleared.?? Physical Exam Vitals & Measurements T:??98.3?F?? HR:??84??(Monitored)?? RR:??22?? BP:??127/61?? SpO2:??96%?? WT:??40.1??kg?? Measurements?? Weight: 40.1 kg (08/17/24) Dry Weight: 40.1 kg (08/17/24) ?? General:??Alert.?? No apparent distress. Psychiatric: Mood:??Normal.?? Pleasant & Cooperative Oriented X 3 ?? HEENT: Wearing glasses Cranial Nerves II-XII:??Normal, no central facial droop.?? EOMI.?? Blinks to threat??bilaterally Visual kennedy:??Full. ?? Visual neglect:??None.?? No extinction to double simultaneous stimulation. No diplopia or disconjugate gaze. ??No nystagmus. ?? Tracks:??Bilaterally ?? Extremities: SCD in place?? Edema:??None.?? Passive ROM:??Normal all limbs.? Neurologic?? Follows Commands:??1 step well ?? can cross body to command well.?? Language:??Normal. ?Naming:??Normal.?Dysarthria:??None. ??Dysphonia:??None.? Motor Exam: Right side 5/5, left side 4/5?? Left ankle with 3/5 eversion Sensory Exam: light touch??with slight decrease to??LLE,??no extinction to double simultaneous stimulation.??_ Coordination Exam: finger to nose??slight ataxia on left, Fine motor coordination??slow on left. Deep Tendon Reflexes 2+ uppers, 2+ right patella with spread to left, 3+ left patella Babinski:??Toe upgoing on left Spasticity Exam: Mild tone at left bicep??and left quad ?? Mobility Exam:??Supine to sit independent,??sitting balance independent,??gait slowed and with CG/Min A??with walker. Slight foot drop??or foot flat gait??on the left. ?? Assessment and Plan 59 year old RH female with recent right??MCA and left sided weakness presented to [facility] with increased left sided weakness from baseline. Transfer[place] [facility] [place]. CTA and CTH??with known pathology. Was scheduled to have??right ICA surgery on Aug 24.??Neurology consulted, pending brain MRI to decide if right ICA can be done as OP or if more emergent and requiring prompt intervention. ?? Ambulating min assist. Left side??weaker than right at both extremities.??Left ankle with restricted ROM and weak eversion due to recent fracture in June. May need brace for left ankle when ambulating??for foot drop and to prevent??recurrent??inversion injuries which can be done as OP or if d/c'dto rehab. ?? Recommendations: Activity:??Encourage ambulation with assistance Bladder:??Voiding Normally. Cognition/psychopharmacology:??Avoid benzos, anticholinergics and antihistaminergics..?? DVT prophylaxis:??Has pneumatic boots in place ?? Neurology:??Appreciate Neurology Note. Pain Management: No complaints?? Spasticity: Mild tone at right??extremities likely from her prior stroke, monitor. ?? Swallow:??No dysphagia. Continue regular texture diet. ?? Current rehab treatment & further recommendations: Occupational Therapy:??Ordered. Physical Therapy:??Ordered ?? Disposition: Acute rehab versus??home with services??or outpatient therapy.?? We will see how she does with OT and PT. She will also be??moving into??an apartment with??no access??to??an elevator and??a??flight of??steps??to??get inside??her home.??She??will??be living independently. Her son will be living in same apartment complex but works during the day. From here though she would be discharged home to her daughter's ?? Code Status:??Full Code (Confirmed) HCP:??No HCP in CIS. She should name one as part of good care planning. ?? Patient seen with GEE Baer. I repeated the critical portions of examination. Agree with above assessment and rehabilitation plan. Quintin Tate MD Problem List/Past Medical History Ongoing Underweight Procedure/Surgical History No qualifying data available. Home Medications Aspirin: 81 mg = 1 capsule, By Mouth, Daily in AM Atorvastatin: 40 mg = 1 tablet, By Mouth, Daily at bedtime Cyanocobalamin: 1,000 mcg = 1 tablet, By Mouth, Daily Lisinopril: 10 mg = 1 tablet, By Mouth, Daily in AM Mirtazapine: 7.5 mg = 1 tablet, By Mouth, Daily at bedtime Multivitamin: 2 tabs, By Mouth, Daily Hospital Medications Medications (15) Active SCHEDULED: (7) Aspirin 81 mg Chew Tablet (aspirin 81 mg oral tablet, chewable) ??81 mg, By Mouth, Daily in AM Atorvastatin 40 mg Tablet (atorvastatin 40 mg oral tablet) ??40 mg, By Mouth, Daily at bedtime Mirtazapine 15 mg Tablet (mirtazapine 15 mg oral tablet) ??7.5 mg, By Mouth, Daily at bedtime NaCl 0.9% Flush 3ml (NaCL 0.9% Flush) ??3 mL, IV Push, Every 8 hours Nicotine 21 mg / 24 hour Patch (Nicotine Topical) ??21 mg, Topically, Daily Remove Patch (Remove ??Patch) ??1 each, Topically, Daily Remove Patch (Remove ??Patch) ??1 each, Topically, Daily CONTINUOUS: (0) PRN: (8) Acetaminophen 325 mg Tablet (Acetaminophen Tablet) ??650 mg, By Mouth, Every 4 hours Dextromethorphan-Guaifenesin 20 mg-200 mg/10 mL Liqu UD (Robitussin DM Liquid) ??10 mL, By Mouth, Every 4 hours Docusate Sodium 100 mg Capsule (Docusate Sodium Capsule) ??100 mg 1 capsule, By Mouth, 2 times a day Melatonin 3 mg Tablet (Melatonin Tablet) ??3 mg, By Mouth, Daily at bedtime NaCl 0.9% Flush 3ml (NaCL 0.9% Flush) ??3 mL, IV Push, Every 8 hours Polyethylene Glycol 17 Gm Powder (MiraLax Powder) ??17 Gm 1 pack/packet, By Mouth, Daily Senna Tablet ??8.6 mg 1 tablet, By Mouth, 2 times a day Simethicone 80 mg Chewable Tablet (Simethicone Tablet) ??80 mg, Chew, 3 times a day Lab Results PM&R Labs WBC: 10.7 k/mm3 (08/16/24) Platelet Count: 383 k/mm3 (08/16/24) Sodium: 142 mmol/L (08/17/24) BUN: 9 mg/dL (08/17/24) Creatinine-Blood: 0.62 mg/dL (08/17/24) AST (SGOT): 26 units/L (08/17/24 06:49:00) AST (SGOT):??34 units/L??High (08/16/24 21:53:00) ALT (SGPT):??34 units/L??High (08/17/24 06:49:00) ALT (SGPT):??37 units/L??High (08/16/24 21:53:00) * Dodie Rico NP: PERFORM Event Display: Consultation Note Authored Date: Patient: ??LENNIE PETTY ? Age:??59 Years?Sex:??Female?:??1965?? Chief Complaint/Reason for Consult CC: recent R.MCA territory infarct, with severe R. ICA stenosis, presenting with worsening L. sidedweakness. History of Present Illness Ms. Petty, 59 y/o female, with history of tobacco dependence, smoking since a teenager??than 1 pack/day??otherwise??up until a recent admission??early June 2024??to [facility]??she was not following with a primary care provider??and has not had any??surveillance testing??such as mammograms, Pap smears, colonoscopies, she has not been taking any prescribed medications,??she had been to to [facility] with left-sided weakness x 2 weeks, he??head CT??on June 25??showedfocal cortical and subcortical hypodensity without associated mass effect??in the posterior right frontal parietal regions??and as of [place]??within the right middle frontal lobe gyrus,??no intracranial hemorrhage or tumors were noted,??T angiography of the head and neck??showed focal critical stenosis or complete occlusion at the origin of the right internal carotid artery,??50% stenosis??of the origin of the left internal carotid artery, anterior communicating artery??aneurysm, 2 mm x 1 mm,a brain MRI??without??contrast??from June 25 showed 8 acute watershed type infarcts within the??right frontal parietal lobe and centrum semiovale??with associated mild gyral expansion,??developing laminar necrosis and trace petechial hemorrhage.?? Superimposed upon multiple chronic watershed type infarcts within the??right frontal parietal lobe, subacute infarcts seen within the right DIAZ territory involving the right cingulate gyrus??without significant mass effect??or reperfusion hemorrhage??and also chronic lacunar infarcts were seen in the bilateral cerebellar hemispheres, she had also underwent a carotid duplex study on June 26??that showed 50??to 79% stenosis of the right internal carotid artery??and 0 to 49% stenosis of the left internal carotid artery, she was also found to havea minimally displaced fracture??through the distal fibula??on x-ray of the left ankle??and??lastly she had a??MRI of the cervical spine on June 26??that showed??C5 cc's retrosubluxation and multifactorial degenerative changes resulting in moderate to severe central canal stenosis, flattening of the cervical cord and severe bilateral foraminal stenosis??with reported Modic type I marrow signal changes at C5-C6,??at C6-C7 multifactorial degenerative changes resulting in moderate central canal stenosis, flattening of the cervical cord with severe bilateral foraminal stenosis??again??absent right internal carotid artery flow void??was noted. ?? Patient reports that she was discharged home??and staying with her daughter, ambulating with a cane.?? She has some residual weakness in the left leg especially at the ankle.?? She now Pravin presentedon August 16 to [facility] after she had 2 falls, first fall unwitnessed but suspected to have hit her head, and a second fall her daughter had found her to be??a bit confused??and she was not sure whether she mixed up her morning and nighttime medications.?? Patient today reports that her left-sided weakness remains unchanged from when she was discharged from [facility]. ??Of note there was also report of worsening left-sided weakness on her presentation. ??Patient denied having any symptoms of dizziness, lightheadedness??shortness of breath or chest pain prior toher falling. ??She denied having any loss of consciousness. ?? Prior??to??this presentation and after her??[facility] admission??patient had gone for preop testing where apparently she was tachycardic and??was prescribed metoprolol, it appears as well that she had a CT chest with contrast done on August 13, there was no acute intrathoracic pro cess seen, was a??3.5 mm??left lower lobe nodule noted Review of Systems GEN: no fevers, no chills, no weight loss, no night sweats HEENT: no headaches, no vision changes, no ear drainage/pain, no tinnitus, no URI symptoms, no throat pain CV: no cp, no palpitations, no lightheadedness, RESP: no sob, no wheezing GI: no n/v/d : no dysuria/frequency/urgency MUSK: no joint pain, no muscle aches/pains DERM: no skin rashes, no bruising PSYCH: no depression, no anxiety NEURO: no vision changes, no speech changes, no change in swallow,no sensory changes, Left leg weakness Physical Exam Vitals & Measurements T:??98.3?F?? HR:??84??(Monitored)?? RR:??22?? BP:??132/67?? SpO2:??96%?? WT:??40.1??kg? GENERAL APPERANCE: ??stated age HEENT:??NC/AT NECK: supple, LUNGS: ??Normal I:E HEART: RRR ABD: soft, ND, NT. EXT: No clubbing, no edema SKIN: no obvious rashes NEURO:??awake and alert oriented to her name, age, place, mo, yr names well follows commands perrl Cranial Nerves:?? Pupils: perrl Visual:??vff Extra ocular movements: Intact Facial sensation:??intact, no fd. Hearing: intact bilaterally to finger rub Speech: clear, fluent, appropriate Tongue: Protrudes Midline Gag: soft palate raises equally Shoulder shru/5 Neck musculature: 5/5 Motor Exam: Strength:??b/l U ES 5/5, RLE 5/5, LLE hip flex 5/5, left ankle df/ext 4/5 Sensory: sensation to light touch intact and equal bilaterally to face, bilateral upper extremities, and bilateral lower extremities, no extinction to dss Coordination: FTN intact, Brant symmetric. ? (08/16/2024 21:[address] Head-Hyper Acute Stroke) ?? IMPRESSION: ?? 1. ??No definite acute intracranial pathology. 2. ??Right MCA territory encephalomalacia compatible with chronic infarction. Some these areas could potentially be subacute on chronic. Consider correlation with MRI. 3. ??Mild nonspecific opacification of the paranasal sinuses. Consider correlation with symptoms toexclude sinusitis. ?? Preliminary radiology report issued by [facility]. Agree with report with the addition of the sinus findings and possibility of subacute infarction. WSN: [id number] ?? [1] ? (08/16/2024 21:[address] Angio Neck Hyperacute Stroke) IMPRESSION: ? 1. Near occlusion of the right internal carotid artery at its origin with a 2 mm vessel extending intracranially. There is additional calcified stenosis of approximately 50% at the level of the anterior clinoid process. The right anterior cerebral artery is reduced in caliber. 2. No significant stenosis of either vertebral artery or the left internal carotid arteries is noted. 3. Old appearing right frontal infarcts. 4. 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 ?? A similar preliminary interpretation was given by [facility]. WSN: [id number] ?? [2] Assessment/Plan ? 59-year-old right-handed female??who??on June 25 presented to [facility] with 2 weeks of??left-sided weakness, prior to which she was not following with her primary care health provider??and was not on any prescribed medications,??she is a lifelong smoker??greater than 1 pack/day sincebeing a teenager but only as of most recently??smoking 5 to 6 cigarettes a day, at [facility] she was found to have??right hemispheric infarcts??of various chronicity's??with right ICA??severe stenosis, she was discharged on blood pressure medications and aspirin with plans for outpatient??carotid endarterectomy plan for??August 24??who now presents to [facility] as a transfer of [facility]??ED??after she had 2 falls on August 16??and there was reported??worsening of her left-sided weakness.?? She today reports that she is stable??and weakness is unchanged fromthe time when she was discharged from [facility] head CT showed right MCA territory ence phalomalacia compatible with chronic infarction with some areas being subacute in nature, CTA of the head and neck had showed near occlusion of the right internal carotid artery at its origin with additional calcified stenosis of approximately 50% at the level of the anterior clinoid process, thereis old appearing right frontal infarcts and also a 2.5 mm left anterior communicating artery aneurysm ?? dx R. MCA infarcts; in setting of R. ICA severe stenosis, ??? new infarcts vs. hypoperfusion/orthostasis leading to falls. ?? Plan -Continue to observe??in [facility] -avoid Hypotension -c/w asa 81 mg daily -statin 40 mg daily -tele -await brain MRI w/o johanne -vascular surgery consult -fu on records requested from [facility]. -dvt prophylaxis -smoking cessation ?? dw Dr. Betancourt. Dr. Jacoby rosenberg. Will follow Please call for any questions. Problem List/Past Medical History Ongoing Underweight Procedure/Surgical History No qualifying data available. Home Medications Aspirin: 81 mg = 1 capsule, By Mouth, Daily in AM Atorvastatin: 40 mg = 1 tablet, By Mouth, Daily at bedtime Cyanocobalamin: 1,000 mcg = 1 tablet, By Mouth, Daily Lisinopril: 10 mg = 1 tablet, By Mouth, Daily in AM Mirtazapine: 7.5 mg = 1 tablet, By Mouth, Daily at bedtime Multivitamin: 2 tabs, By Mouth, Daily Allergies penicillin Social History Tobacco Use: 10 or more cigarettes (1/2 pack or more)/day in last 30 days. Family History No family history recorded. [1]??CT Head-Hyper Acute Stroke; Trell Leonard MD 08/16/2024 21:44 EDT [2]??CT Angio Neck Hyperacute Stroke; Oli Jordan MD 08/16/2024 21:44 EDT * Asia LOWRY, Anjum: PERFORM Event Display: Consultation Note Authored Date: [id number] Attending Attestation:??I have seen and evaluated the patient. I have reviewed the patient???s medical history, findings on examination, diagnosis and treatment.?I have discussed the case and its management with the??Advanced Practitioner??and agree with the findings and plan as documented in the AP's note. ?? 59-year-old right-handed female??who??on June 25 presented to [facility] with 2 weeks of??left-sided weakness, prior to which she was not following with her primary care health provider??and was not on any prescribed medications,??she is a lifelong smoker??greater than 1 pack/day sincebeing a teenager but only as of most recently??smoking 5 to 6 cigarettes a day, at [facility] she was found to have??right hemispheric infarcts??of various chronicity's??with right ICA??severe stenosis, she was discharged on blood pressure medications and aspirin with plans for outpatient??carotid endarterectomy plan for??August 24??who now presents to [facility] as a transfer of [facility]??ED??after she had 2 falls on August 16 with head injury bu the patient denies any new weakness. ?? On exam she has mild left FD, LUE proximally>Distal weakness 4/5, LLE 4/5. ?? CTA head and neck shows right ICA >90% stenosis wihtmix plaque. CT head shows chronic right DIAZ/MCA watershed and embolic strokes. on june 25 she had new right frontal strokes on top of chronic strokes and possible small petechia, ??likely from right ICA stenosis ?? Obtain MRI brain, contiue aspirin, US carotid, and if new strokes than will consider vascular surgery intervention. ?? Anjum Betancourt M.D Attending-Vascular Neurology Department of Neurosciences [employer] ? Please note - The above note was created using [employer] software and dictation errors may have occurred; I apologize for any mistakes in the painter railroad car. ??Thank you for your patience as we continue to work on perfecting the dictation process. ??Please feel free to contact us for any clarification purposes. * Jacky VELAZQUEZ, Dodie: PERFORM Event Display: Consultation Note Authored Date: [id number] TTE??from [facility] [place] was completed on 06/25/24 Report as follows; 1. ??LV ejection fraction with LVEF of 65??to 70% with impaired relaxation filling pattern 2.?? No clear evidence of PFO 3.?? Normal cardiac valvular Doppler's??next-door. ??No gross pericardial effusion LHIAS was seen. Radiology * Event Display: NM Myocard Perf SPECT Multi Authored Date: [id number] Myocardial Perfusion Imaging Demographics Patient Name CARLOS HOGUE Gender Female [employer] Room Number D5219 .[id number] Height 60.2 inches Date of 1965 Weight 88.4 pounds Age 59 year(s) BSA 1.32 m2 Accession Number [id number] BMI 17.13 kg/m2 Date of study 08/19/2024 Resident Referring Physician JOHN Marsh Interpreting Physician Kyle Farfan MD DC Technologist Franko Marie Procedure Procedure Type: Myocardial Perfusion Imaging:NM Myocardial Perfusion Spect Multi Indications: Chest pain. Risk Factors The patient risk factors include:Current - Every day tobacco use, hypercholesterolemia and hypertension. Stress Protocols Resting ECG Sinus tachycardia. Nonspecific ST-T wave abnormalities. Resting HR:107 bpm Resting BP:142/82 mmHg Pre-stress physical exam: The patient's medications include Aspirin, Atorvastatin, Mirtazapine and were not held prior to the test. Stress Protocol:Pharmacologic - IV Regadenoson Dose: 0.4 mg Peak HR:130 bpm HR response: Not assessed Peak BP:152/68 mmHg (pharmacologic study) Predicted HR: 159 bpm HR recovery: Not Assessed % of predicted HR: 82 (Pharmacologic Study) BP response: Resting hypertension with Reason for termination:Protocol appropriate response complete HR/BP product:[id number] Functional capacity:Not assessed Chest pain:No chest pain ST Changes:Exaggeration of ST abnormalities Arrhythmias No arrhythmias. Stress Interpretation Pharmacologic study only. Physiologic response not assessed - pharm stress. EKG nondiagnostic baseline ST abnormalities. Imaging Protocols - One Day Rest Stress Isotope:Tc99m Sestamibi Isotope: Tc99m Sestamibi Isotope dose:9.3 mCi IV Isotope dose:27.5 mCi IV Date:08/19/2024 Date:08/19/2024 Time to Rest Imagin minutes Time to Stress Imagin minutes Technique: Gated Technique: Gated Supine Supine Imaging Results Summed scores - Summed stress score: 0 - Summed rest score: 0 - Summed difference score: 0 Rest ejection Stress ejection Ejection fraction:88 % Ejection fraction:80 % EDV :25 ml EDV :30 ml ESV :3 ml ESV :6 ml Stroke volume :22 ml Stroke volume :24 ml LV mass :49 gr LV mass :60 gr Conclusions Summary 1. Myocardial perfusion imaging is normal without any fixed or reversible perfusion defect after Regadenoson stress test. 2. LV function is normal at rest and with stress, with normal wall motion and thickening. 3. EKG portion of the stress test is reported separately. This procedure is not being performed on this patient for preoperative evaluation for low-risk surgery within 30 days. Signatures * Event Display: NM Myocard Perf SPECT Multi Authored Date: [id number] Note * Alma Rosa Johnson RN: PERFORM Event Display: Discharge/Transfer Note Hospital Authored Date: [id number] Nursing Discharge Note Entered On: 08/20/2024 13:44 EDT Performed On: 08/20/2024 13:44 EDT by Alma Rosa Johnson RN Nursing Discharge Note 2 Discharge Time : 08/20/2024 13:44 EDT Discharge Level of Care at Discharge : Home/Fci/Foster Care Patient Left Unit Via : Wheelchair Patient Accompanied Off Unit with : Responsible adult DC Instructions Provided & Signed by Pt : Yes Patient Understands D/C Instructions : Yes Patient Instructions Discharge Signed : Yes Did Pt have Specialty Bed or Wound Vac : No Alma Rosa Johnson RN - 08/20/2024 13:44 EDT * Alcon LOWRY, Natalie: PERFORM Event Display: Discharge/Transfer Note Hospital Authored Date: Patient: ??LENNIE PETTY ? Age:??59 Years?Sex:??Female?:??1965?? Patient Information Discharge Location: Primary Care Physician: Not on Staff, PCP Admit Date/Time: 08/17/24 00:42 Discharge Disposition Discharge Disposition: ?? 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) Tachycardia (R00.0) Impaired mobility and activities of daily living (Z74.09) Other specified health status (Z78.9) HTN (hypertension) (I10) Hyperlipidemia (E78.5) Insomnia (G47.00) Tobacco abuse (Z72.0) _ Discharge Medications Aspirin (aspirin 81 mg oral capsule)?1?capsule?81?Milligram?By Mouth?Daily in AM Atorvastatin (atorvastatin 40 mg oral tablet)?1?tab(s)?40?Milligram?By Mouth?Daily at bedtime Cyanocobalamin (Vitamin B12 1000 mcg oral tablet)?1?tab(s)?1,000?Microgram?By Mouth?Daily Lisinopril (lisinopril 10 mg oral tablet)?10?Milligram?1?tablet?By Mouth?Daily Elizabeth?HOLD UNTIL SURGERY,TAKE HALF TABLET IF SBP >170 Mirtazapine (mirtazapine 7.5 mg oral tablet)?1?tab(s)?7.5?Milligram?By Mouth?Daily at bedtime Multivitamin?2 tabs?By Mouth?Daily ? Quality Measures Stroke Quality Measures:? Medications Started None Medications Discontinued Holding??lisinopril??until surgery,??recommended to take??half tablet (5 Mg), if SBP more than 170 Doses Changed None Hospital Course ? HTN (hypertension) ??(I10) Hyperlipidemia ??(E78.5) Insomnia ??(G47.00) Tobacco abuse ??(Z72.0) 1. ??Carotid artery stenosis with cerebral infarction ??(I63.239) 2. ??Cerebrovascular accident (CVA) due to occlusion of right carotid artery ??(I63.231) 3. ??Tachycardia ??(R00.0) 4. ??Impaired mobility and activities of daily living ??(Z74.09) 4. ??Other specified health status ??(Z78.9) ?? Assessment:??59??yo female with PMH of recent stroke in right??MCA??territory (right frontal infarct on CTH) with left??weakness previously seen??at [facility] with plans to have right carotid??surgery Friday 08/24??and??who presented??presented to [place] [facility]??on the evening of 08/16 with LKWT 1999. She was noticed having??increasing left sided weakness and fell, denied hitting her head or LOC.??At baseline, she is on aspirin and reported left leg weaker than baseline.??CTH shows small?? possible??petechial??heme??component??as well as dystrophic calcification and??with recent??stroketrauma to head??and??possible??petechial??heme components not??candidate??for [employer].CTA showed no prox LVO but high grade near occlusion in??Right ICA at origin with distal intracranial reconstitution of flow.??Neurology was consulted and recommended she??be transferred here. ??Her??symptoms were better on arrival.?She underwent MRI??08/17??revealing no new findings.??Neurology initially recommended??Vascular eval, after discussion with Neurology and??Vascular team this was deferred, to allow for CUS.?Additionally patient was ??recommended for??outpatient stress test 08/19?? whciich was done here and was normal after discussion withe her cardiology providers.PT recommended home with outpatient therapy and is being discharged home . ?? Severe carotid artery stenosis with recent infarction CVA (cerebral vascular accident)??(I63.9) Elevated LFTs??(R79.89) HTN (hypertension)??(I10) Hyperlipidemia??(E78.5) Insomnia??(G47.00) Tobacco abuse??(Z72.0) ?? Neurology on board?? MRI brain on 08/17???no acute infarct,??stable?? prior infarcts??in right hemisphere, Downgraded from??neuro [facility] to??neurology floor on??08/19 Continued on ??aspirin, statin, to continue on -Vascular Surgery deferred??consult; advised repeat Carotid Duplex, if unstable plaque would suggest more urgent surgery CUS performed??on 08/18???known right near occlusion of??right ICA??(patient is awaiting??surgery??on August 24), no other abnormality Heparin subcu??prophylaxis for DVT -smoking cessation??counseled -Avoid excessive drop in blood pressure, due to high grade MIR stenosis- permissive HTN to 180.?? (Therefore holding BP meds) monitor BP at home and avoid drops below 140 systolic -Surgery was planned next week Oct 7 at [facility],??therefore??regadenoson stress test??with MPI??done??here??on??08/19??as preop eval??(as??was planned outpatient) Stress test is??normal???no fixed or??reversible??perfusion defects per MPI,??LV function is normalat rest and stress -PT/PMR evaluation??? recommend home with outpatient PT services, script given ?? HTN ?? Permissive HTN, will resume antihypertensive medications??to allow for adequate??perfusion, avoiding hypotension Currently holding metoprolol lisinopril -Keep HOB??lower -PRN IVF if BP low and pt is symptomatic? HLD Elevated LFTs ?? -Statin -Monitor LFTs ?? Insomnia ?? -Cont Mirtazapine ?? Nicotine abuse ?? -Cont patch ?? Discharge Planning/OMN:??Home?? with outpatient PT? Above patient was done using [employer] (by [employer])ation software, please do not hesitate to contact the author??for clarification of any unintentional errors, should it be needed ? Objective Assessment and Plan Discharge Planning:? Vital Signs?? Temperature: 98.4 DegF (08/20/24 12:09:00) Temperature Route: Oral (08/20/24 12:09:00) Pulse Rate:??119 bpm??High (08/20/24 12:09:00) Respiratory Rate: 18 br/min (08/20/24 12:09:00) Systolic Blood Pressure:??149 mm Hg??High (08/20/24 12:09:00) Diastolic Blood Pressure:??92 mm Hg??High (08/20/24 12:09:00) Blood pressure sites: Arm, left (08/20/24 12:09:00) Mean Arterial Pressure: 111 mm Hg (08/20/24 12:09:00) Pulse Pressure: 57 mm Hg (08/20/24 12:09:00) Oxygen Saturation: 96 % (08/20/24 12:09:00) Mode of Delivery (Oxygen): Room air (08/20/24 12:09:00) Early Warning Score: 2 (08/20/24 12:11:53) ? . Physical Exam General: Alert,??oriented x3, in no acute distress, fully communicative, speaking in??full sentences HEENT Normocephalic. Pupils are equal, round and reactive to light. Extraocular muscles intact. Oropharynx clear, oral mucosa??moist Neck: Supple, Full range of motion. Trachea midline. No JVD or bruits. Respiratory: CTA BL, no rhonchi/wheezes Cardiovascular: S1-2 regular, no MRG Gastrointestinal: Abdomen soft, non-tender, non-distended. Normal bowel sounds. ??No guarding, rigidity, rebound, no hepatosplenomegaly Extremities: No edema, cyanosis or clubbing.?? Extremities warm Neurologic: AAOx3, Cranial nerves II-XII grossly intact. Speech normal. ??Motor 5/5,??sensory exam intact, deep tendon reflexes +2 bilaterally. ??Mild??left??foot/leg??weakness? ??Chronic from??priorstroke) Skin: No rashes or lesions. No petechiae or purpura.? Pending Results No Pending Results Post Discharge Care Diet: ??Cardiac diet ?? Activity: ??Ambulation with assistance of a walker, as tolerated, ?? Code Status: ??Follow-up ?? Condition: ??Fair ?? Discharge ?08/20/24 12:57:00 EDT Discharge Prescriptions ?None, 08/20/24 12:57:00 EDT Home Health Face to Face ^HomeHealthFTF Results Discharge Labs BLOOD COUNT & DIFF WBC 12.1 k/mm3 (High)?? 08/19/2024 04:04 RBC 4.29 m/mm3 ()?? 08/19/2024 04:04 Hgb 14.2 Gm/dL ()?? 08/19/2024 04:04 Hct 41.8 % ()?? 08/19/2024 04:04 MCV 97.4 femtoliters ()?? 08/19/2024 04:04 MCH 33.1 pg ()?? 08/19/2024 04:04 MCHC 34.0 Gm/dL ()?? 08/19/2024 04:04 Platelet Count 336 k/mm3 ()?? 08/19/2024 04:04 RDW-SD 43.8 femtoliters ()?? 08/19/2024 04:04 MPV 10.2 femtoliters ()?? 08/19/2024 04:04 Nucleated RBC (Automated) 0.0 #/100 WBC'S ()?? 08/19/2024 04:04 Abs. NRBC 0.0 k/mm3 ()?? 08/19/2024 04:04 ?? CHEM GENERAL Sodium 140 mmol/L ()?? 08/19/2024 04:04 Potassium 4.1 mmol/L ()?? 08/19/2024 04:04 Chloride 106 mmol/L ()?? 08/19/2024 04:04 Bicarbonate Level 22 mmol/L ()?? 08/19/2024 04:04 Anion Gap 12 ()?? 08/19/2024 04:04 Glucose Level 93 mg/dL ()?? 08/19/2024 04:04 Hemoglobin A1C (Monitoring) 5.5 % ()?? 08/17/2024 06:47 BUN 10 mg/dL ()?? 08/19/2024 04:04 Creatinine-Blood 0.63 mg/dL ()?? 08/19/2024 04:04 Estimated GFR Creatinine 101 ML/MIN/1.73 M2 ()?? 08/19/2024 04:04 Calcium 9.2 mg/dL ()?? 08/19/2024 04:04 Protein, Total 6.4 Gm/dL ()?? 08/19/2024 04:04 Albumin 3.9 Gm/dL ()?? 08/19/2024 04:04 AG Ratio 1.6 ()?? 08/19/2024 04:04 Alkaline Phosphatase 100 units/L ()?? 08/19/2024 04:04 AST (SGOT) 22 units/L ()?? 08/19/2024 04:04 ALT (SGPT) 26 units/L ()?? 08/19/2024 04:04 Bilirubin, Total 0.4 mg/dL ()?? 08/19/2024 04:04 Bilirubin, Direct <0.2 mg/dL ()?? 08/17/2024 06:49 Bilirubin, Indirect Direct bilirubin is less than the measureable limit. Therefore, indirect mg/dL ()?? 08/17/2024 06:49 Estimated Average Glucose 111 mg/dL ()?? 08/17/2024 06:47 ? HEME OTHER Hold Lavender Top SPECIMEN DISCARDED AFTER 24 HOURS. ()?? 08/17/2024 06:47 ? LIPID STUDIES Cholesterol 127 mg/dL ()?? 08/17/2024 06:49 Triglycerides 73 mg/dL ()?? 08/17/2024 06:49 HDL Cholesterol 49 mg/dL ()?? 08/17/2024 06:49 LDL Cholesterol 63 mg/dL ()?? 08/17/2024 06:49 Non HDL Cholesterol 78 mg/dL ()?? 08/17/2024 06:49 ? 42_ minutes spent on discharge * Elizabeth MANZANO, Alma Rosa: PERFORM, MODIFY Event Display: Patient Education/Instruction Authored Date: Inpatient Adult Discharge Instructions. [place] [id number] Name: LENNIE PETTY : 1965?? Visit: 08/17/2024 00:42?? Current Date: 08/20/2024 13:16 ?? Account: [id number]?? Inpatient Adult Discharge Instructions We would like to thank you for allowing us to assist you with your healthcare needs. The following includes patient education materials and information regarding your injury/illness. Our entire staffstrives to provide an excellent experience for our patients and their families. PLEASE ENSURE YOU FOLLOW-UP PER THE INSTRUCTIONS BELOW! ?? YOUR OPINION IS IMPORTANT TO US! Please complete the survey you may receive by mail or email. Your feedback will be used to make improvements to the healthcare experiences of our patients and their families. Surveys are administered by [employer] ?? If further treatment with your primary care physician or another doctor is recommended, it is important for you to keep the appointment. Call your primary care physician or return to the Emergency Department immediately if your condition worsens, fails to improve, or new symptoms develop. If you need to find a doctor, you can call [facility] Link for a referral at [phone] or toll free at [phone]) or log in to [email or web address].. ?? [facility], in keeping with [facility] guidance, no longer requires face masks for staff, patientsor visitors in most situations. Similiar to time spent indoors at other locations, there is the chance that you were exposed to repiratory viruses during your time with us (such as flu or COVID-19). If you develop symptoms concerning for a viral respiratory infection, please seek testing (and treatment if indicated) from your medical provider or home test kit. ?? You can view and manage your care through the patient portal or by using a health care arnold of your choosing. [employer] is a website that allows you to securely view your medical information including your hospital discharge summary, office visit summaries, medications and follow-up visits. You can also request appointments, renew medications, and request access to your medical information using a health care arnold of your choosing, or just ask a question. You can enroll at [email or web address] or register during your next office visit. You have been discharged from [facility], Patient Care Unit: S3??. If you have any questions regarding these instructions, including results of studies pending, afteryou leave, please call us and we will be happy to assist you 10/06. [facility] Your Care Team Attending Physician Natalie Rondon MD?? Consulting Providers Natalie Rondon MD?? 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 You may have had other tests and procedures not included in this list. Please discuss all test results with your provider. BASIC METABOLIC PANEL CBC Comprehensive Metabolic Panel HEMOGLOBIN A1C WITH EST GLUCOSE HEPATIC FUNCTION PANEL HOLD LAVENDER TUBE LIPID PANEL MRI Brain W/O Contrast Basic Metabolic Panel?? CBC?? Comprehensive Metabolic Panel?? Hemoglobin A1C w/ Estimated Glucose (HEMOGLOBIN A1C WITH EST GLUCOSE)?? Hepatic Function Panel?? Hold Lavender Top Tube (HOLD LAVENDER TUBE)?? Lipid Panel?? MRI Brain W/O Contrast?? Primary Care Provider Not on Staff, PCP?? Advance Directive Health Care Proxy on File Yes - Health Care Proxy Discharge Vitals Temperature: 98.4 DegF Weight: 40.1 kg Pulse Rate:??119 bpm??High ?? Respiratory Rate: 18 br/min ?? Systolic Blood Pressure:??149 mm Hg??High ?? Diastolic Blood Pressure:??92 mm Hg??High ?? Oxygen Saturation: 96 % ?? Studies Pending All studies ordered during this hospital stay have been completed unless listed below. Please discuss all pending results with your provider listed above in these instructions. ?? No incomplete studies found?? What to do next Instructions From Your Doctor ?? Orders??:Cardiac diet :Ambulation with assistance of a walker, as tolerated, Status:Follow-up : ??Fair? 08/20/24 12:57:00 EDT?? Prescriptions??, ??08/20/24 12:57:00 EDT?? Scheduled Follow-Up Appointments Neuro appointment; Clinic will call you and if you did hear from them pls call this number: [phone]. Discharge Medications LENNIE PETTY :1965 Visit Date:08/17/2024 Medications: Please continue your medications until treatment is completed or stopped by your provider. Medications not listed below should be discontinued. Discuss any questions related to medications with your provider. What How Much When Instructions Next Dose Changed Lisinopril (lisinopril 10 mg oral tablet) 1 tab(s) Oral Daily in the morning HOLD UNTIL SURGERY,TAKE HALF TABLET IF SBP >170 ?? as per instruction Unchanged Aspirin (aspirin 81 mg oral capsule) 1 capsule Oral Daily in the morning 10/4?? AM Unchanged Atorvastatin (atorvastatin 40 mg oral tablet) 1 tab(s) Oral Daily at Bedtime 10/3 PM Unchanged Cyanocobalamin (Vitamin B12 1000 mcg oral tablet) 1 tab(s) Oral Daily 10/4 AM Unchanged Mirtazapine (mirtazapine 7.5 mg oral tablet) 1 tab(s) Oral Daily at Bedtime 10/3 PM Unchanged Multivitamin 2 tabs Oral Daily 10/4 AM Prescription Given During Visit No new medications prescribed at time of discharge.?? Laboratory Results Below is a partial list of the most recent Laboratory test results done prior to this discharge. You may have had other tests and procedures not included in this list. Please discuss all test resultswith your provider. BASIC METABOLIC PANEL (08/17/2024) ???Sodium - 142 mmol/L???Potassium - 4.1 mmol/L???Chloride - 105 mmol/L???Bicarbonate Level - 24 mmol/L???Anion Gap - 13???Glucose Level - 86 mg/dL???BUN - 9 mg/dL???Creatinine-Blood - 0.62 mg/dL???Estimated GFR Creatinine - 101 ML/MIN/1.73 M2???Calcium - 9.2 mg/dL CBC (08/19/2024) ???WBC - 12.1 k/mm3???RBC - 4.29 m/mm3???Hgb - 14.2 Gm/dL???Hct - 41.8 %???MCV - 97.4 femtoliters???MCH - 33.1 pg???MCHC - 34.0 Gm/dL???Platelet Count - 336 k/mm3???RDW-SD - 43.8 femtoliters???MPV - 10.2 femtoliters???Nucleated RBC (Automated) - 0.0 #/100 WBC'S???Abs. NRBC - 0.0 k/mm3 Comprehensive Metabolic Panel (08/19/2024) ???Sodium - 140 mmol/L???Potassium - 4.1 mmol/L???Chloride - 106 mmol/L???Bicarbonate Level - 22 mmol/L???Anion Gap - 12???Glucose Level - 93 mg/dL???BUN - 10 mg/dL???Creatinine-Blood - 0.63 mg/dL???Estimated GFR Creatinine - 101 ML/MIN/1.73 M2???Calcium - 9.2 mg/dL???Protein, Total - 6.4 Gm/dL???Albumin - 3.9 Gm/dL???AG Ratio - 1.6???Alkaline Phosphatase - 100 units/L???AST (SGOT) - 22 units/L???ALT (SGPT) - 26 units/L???Bilirubin, Total - 0.4 mg/dL HEMOGLOBIN A1C WITH EST GLUCOSE (08/17/2024) ???Hemoglobin A1C (Monitoring) - 5.5 %???Estimated Average Glucose - 111 mg/dL HEPATIC FUNCTION PANEL (08/17/2024) ???Protein, Total - 6.6 Gm/dL???Albumin - 4.1 Gm/dL???Alkaline Phosphatase - 103 units/L???AST (SGOT) - 26 units/L? ?ALT (SGPT) - 34 units/L? ?Bilirubin, Total - 0.5 mg/dL? ?Bilirubin, Direct - <0.2 mg/dL???Bilirubin, Indirect - Direct bilirubin is less than the measureable limit. Therefore, indirect HOLD LAVENDER TUBE (08/17/2024) ???Hold Lavender Top - SPECIMEN DISCARDED AFTER 24 HOURS. LIPID PANEL (08/17/2024) ???Cholesterol - 127 mg/dL???Triglycerides - 73 mg/dL???HDL Cholesterol - 49 mg/dL???LDL Cholesterol - 63 mg/dL???Non HDL Cholesterol - 78 mg/dL You will be contacted within 72 hours with your results. Allergies (NKA means No Known Allergies) penicillin Problems Active Problems??(4) Carotid artery stenosis with cerebral infarction?? Cerebrovascular accident (CVA) due to occlusion of right carotid artery?? Tachycardia?? Underweight?? Education Materials Below is the list of Educational Leaflet Providered with your Discharge Instructions. Valuables and Belongings I fully understand and agree that [facility] accepts no responsibility for all my personal property including clothing, toilet articles, radios, jewelry, dentures, hearing aids, rings, money, or any other property that is in my possession or is brought to me after admission. I understand certain valuables may be placed in a hospital safe for a short period of time. I understand that the hospital is not liable for loss or damage due to accident, fire, or other natural occurrence while said property is in the safe. I accept full responsibility for any personal property that I keep with me, and will not hold the hospital responsible in case of loss or disappearance. I acknowledge that i have been encouraged to send valuables and belongings home. ?? Review of Valuable and Belonging List: With patient Date for Pt to Sign Valuables/Belongings: 08/20/24 12:09:00 ?? Other Discharge Information ? Pulmonary Rehab Status?? Pulmonary Rehab Discharge Status?? Respiratory Rate: 18 br/min ? Common Emergency Awareness Tips IS IT A STROKE? Act FAST and Check for these signs: FACE Does the face look uneven? ARM Does one arm drift down? SPEECH Does their speech sound strange? TIME Call at any sign of stroke ?? Heart Attack Signs Chest discomfort: Most heart attacks involve discomfort in the center of the chest and lasts more than a few minutes, or goes away and comes back. It can feel like uncomfortable pressure, squeezing, fullness or pain. Discomfort in upper body: Symptoms can include pain or discomfort in one or both arms, back, neck, jaw or stomach. Shortness of breath: With or without discomfort. Other signs: Breaking out in a cold sweat, nausea, or lightheaded. Remember, MINUTES DO MATTER. If you experience any of these heart attack warning signs, call to get immediate medical attention! ?? Smoking can increase your chances of developing chronic health problems and can cause harmful effects to other family members in your house. If you smoke, you are strongly encouraged to quit. Please call [facility] [employer] Link at [phone] or [phone] ([phone]) or log in to [email or web address] for referrals to smoking cessation programs. ?? 797 Suicide & Crisis Lifeline is available 10/06 if you or someone you know needs to find a reason to keep living. By calling 102 you'll be connected to a skilled, trained counselor at a crisis center in your area. INPATIENT DISCHARGE INSTRUCTIONS SIGNATURE PAGE LENNIE PETTY Location:[facility] Registration Date and Time:08/17/2024 00:42 EDT Primary Care Physician: Not on Staff, PCP Attending Physician: Natalie Rondon MD, I LENNIE PETTY, have received the above patient education materials/instructions and have verbalized understanding. If ambulance or transport services are being used I further acknowledge being given a choice of service. ?? If you need to contact me, please call me at this number: . Patient/Systems Analyst Engineer Name: Patient/Systems Analyst Engineer Signature: Relationship to Patient: Witness Name/Signature: Date: Patient Care team information Care Team Personnel Name: Alma Rosa Johnson RN Position: [facility] RN Member Role: Primary Care Nurse Name: Concha Pollock RN Position: S RN Member Role: Primary Care Nurse Name: Not on Staff, PCP Position: [facility] Physician (General Medicine) Member Role: PCP Name: Jennifer Moore RN Position: S RN Member Role: Primary Care Nurse Care Team Related Persons Name: ALEX RIYA Address: [address] [address] Name: ALVERTO BHAT
[2024-08-24] MEDS: Lactated Ringers 1,000 ML 100 ML IVCONT (07:04)
[2024-08-24] MEDS: vancomycin HCL 1,000 MG in 0.9 % Sodium Chloride 250 ML 270 MG IV ×2 (07:05→19:42)
[2024-08-24 07:13] LABS: Hematocrit 38.7 % (37.0-47.0); Hemoglobin 13.1 g/dl (12.0-16.0); INTERNATIONAL NORM RATIO 1.1 (0.9-1.1); Mean Corpuscular HGB Conc 33.9 g/dl (31.0-35.0); Mean Corpuscular Hemoglobin 33.7 pg (27.0-33.0); Mean Corpuscular Volume 99.5 fL (80.0-98.0); Mean Platelet Volume 10.9 fL (9.4-12.3); Platelet Count 283 X10*3/uL (160-400); Prothrombin Time 13.2 SEC (10.9-12.4); Red Blood Count 3.89 X10*6/uL (4.20-5.50); Red Cell Distribution Width 12.8 % (11.0-16.0); White Blood Count 11.3 X10*3/uL (4.8-10.8)
[2024-08-24 07:15] LABS: Partial Thromboplastin Time 30.4 SEC (26.0-36.8)
[2024-08-24 07:18] LABS: Anion Gap 12 (12-20); Blood Urea Nitrogen 11 mg/dL (9-16); Calcium 9.3 mg/dL (8.4-10.2); Carbon Dioxide 24 mmol/L (22-29); Chloride 111 mmol/L (96-108); Creatinine Clr Calc Pharmacy 56.1; Estimated Glomerular Filt Rate > 60; Glucose Random 94 mg/dL (60-115); Sodium 143 mmol/L (135-145)
--- NOTE | 2024-08-24 07:25 | P.CONAN_ITS ---
Documented by User: Shayna Trujillo NP 08/21/24 12:13 HPI - Anesthesia Eval Consult details Narrative: 59yo F for Right Carotid Endarterectomy, 08/24/24 Since [facility], pt admitted to [facility] after another fall, no new stroke. Per D/C summary MRI brain on 08/17?no acute infarct,?stable? prior infarcts?in right hemisphere Rec ProVu: moderate to severe lower cervical multilevel central canal stenosis with flattening of cord, cervical spondylitic radiculomyelopathy Cardiac w/u pending - neg stress done during [facility] admission. Optimized per [facility] cardiology workload [facility] admit 06/2024 with stroke. LLE weakness, no other residual No recent illness. Left ankle fracture with stroke, nonsurgical management No CP/SOB without limits prior to stroke 06/25/24 Smoking ~ 7 cigs daily BP up and tachy at [facility]. Untreated htn prior to stroke. Started on lisinopril and pt has been taking. Eval with cardiology this afternoon. [facility] Admit 06/25/24-06/27/24 for stroke - Hospital course: 59-year-old female with no pertinent past medical history and not on prescription medications who presents to the emergency department for evaluation of left-sided weakness, admitted to medical floor with concern of acute/subacute CVA,MRI brain showed right anterior circulation border zone acute infarction, Carotid ultrasound showed moderate right hemodynamically significant stenosis 50-79%, left with 0-49% stenosis,seen by vascular surgery he recommend outpatient follow-up in 2 weeks, Hemoglobin A1c 4.9, LDL 120, seen by neurology they agreed with aspirin statin and recommend see vascular surgery follow-up, patient seen by Physical therapy they recommended acute rehab but unfortunately patient is on in showed therefore is going home with daughter Hypertension untreated placed on lisinopril 10 mg , recommend to follow blood pressure noted to have persistent elevated blood pressure recommend to adjust dosage. Left distal fibula fracture, Due to mechanical fall, has left foot cast, recommend Outpatient follow-up with ortho in 2 weeks Reactive leukocytosis resolved Tobacco use disorder counseling done place on nicotine patch 21 mg and prn nicotine gums. Left-sided neck/arm pain and weakness, C-spine MRI showed moderate to severe lower cervical multilevel central canal stenosis with flattening of cord, cervical spondylitic radiculomyelopathy. neuro recommends outpatient neurosurgical evaluation, recommend to avoid neck manipulation, not to drive at this time. [facility] Active Problems Active Problems: All Active Problems Closed fracture of left distal fibula (Acute) Insomnia (Acute) Hypertension (Acute) Hypercholesterolemia (Acute) Tobacco abuse (Acute) Stroke due to stenosis of right carotid artery (Acute) Carotid stenosis (Acute) Cerebral infarction (Acute) CVA (cerebral vascular accident) (Acute) Ankle fracture (Acute) Stroke (Acute) Past Medical History Medical History Ambulates with cane Closed left ankle fracture Weakness of left lower extremity Smoker HLD (hyperlipidemia) HTN (hypertension) History of cerebrovascular accident (~06/25/24) Family History Family History Father Mesothelioma Mother Breast cancer Family history of problems with anesthesia: No Surgical History Surgical History (Updated 08/24/24 @ 06:18 by Nery Boyd RN) No pertinent past surgical history History of Problems with Anesthesia: No Social History Social History Household Members Other:: daughter Housing: House Are you a primary health care / medical job titles to a significant other at home: No Do you presently have visiting nurse or other home services: No Alcohol intake: current Alcohol intake frequency: a few times a month Patient Tobacco Use Status: Current everyday Tobacco user Tobacco use type: Cigarette Cigarettes Per Day: 7 Years Smoked: 30+ e-Cigarette/Vaping Use: Never Used Second Hand Smoke Exposure: No Use of substances other than those prescribed or required for medical reasons: No Have you been hit, kicked, punched, or otherwise hurt by someone within the past year? If so, by whom?: No Spiritual Healthcare Practices: none [facility] Practices: none Cultural Healthcare Practices: none Are you DNR?: No Advance Directives: No Advance Directives Information Provided: Yes Advance Directives on File: No Recently lost weight without trying: Yes How much weight loss: 2-13 pounds Eating poorly because of decreased appetite: Yes Nutrition screen score: 4 Poor oral hygiene: No service: No Cognitive needs: Yes (wheelchair ) Hearing needs: No Vision needs: Yes (glasses ) Meds Allergies Allergy/AdvReac Type Severity Reaction Status Date / Time Penicillins Allergy Severe Swelling Verified 08/24/24 06:18 Home Medications ?Medication ?Instructions ?Recorded ?Confirmed ?Last Taken ?Type multivitamin with minerals-folic 2 tab PO DAILY 06/25/24 08/12/24 08/23/24 History acid 120 mcg chewable tablet (Women's Multivitamin Gummies) nicotine 21 mg/24 hr daily 21 mg transdermal Q OTHER DAY 08/12/24 08/12/24 08/23/24 History transdermal patch Exam Height,Weight and Vital Signs: Height 5 ft Weight 43.545 kg Last Vital Signs Pulse 108 H 08/12/24 10:07 Resp 16 08/12/24 10:07 BP 171/77 H 08/12/24 10:07 Pulse Ox 98 08/12/24 10:07 O2 Del Method Room Air 08/12/24 10:07 Narrative Narrative: EKG 07/[address] diffuse [address] depression suggestive of ischemia NM Myocardial Perf 08/19/24 Conclusions Summary 1. Myocardial perfusion imaging is normal without any fixed or reversible perfu gayatri defect after Regadenoson stress test. 2. LV function is normal at rest and with stress, with normal wall motion and thickening. 3. EKG portion of the stress test is reported separately. Airway Mallampati Class: III TM Dist: >3cm Neck ROM: Limited Loose/Missing/Broken Teeth: No Heart: RRR Lungs: CTAB Assessment and Plan Assessment Anesthesia Assessment: Anesthesia Plan Discussed, Smoking Cess. Discussed and PAT Visit Final Anesthetic Review Family History of Problems with Anesthesia: No History of Problems with Anesthesia: No Documented by User: Aixa Velasco DO 08/24/24 07:32 [facility] Past Medical History Medical History Ambulates with cane Closed left ankle fracture Weakness of left lower extremity Smoker HLD (hyperlipidemia) HTN (hypertension) History of cerebrovascular accident (~06/25/24) Family History Family History Father Mesothelioma Mother Breast cancer Family history of problems with anesthesia: No Surgical History Surgical History (Updated 08/24/24 @ 06:18 by Nery Boyd RN) No pertinent past surgical history History of Problems with Anesthesia: Unobtainable (never had surgery) Social History Social History Household Members Other:: daughter Housing: House Are you a primary health care / medical job titles to a significant other at home: No Do you presently have visiting nurse or other home services: No Alcohol intake: current Alcohol intake frequency: a few times a month Patient Tobacco Use Status: Current everyday Tobacco user Tobacco use type: Cigarette Cigarettes Per Day: 7 Years Smoked: 30+ e-Cigarette/Vaping Use: Never Used Second Hand Smoke Exposure: No Use of substances other than those prescribed or required for medical reasons: No Have you been hit, kicked, punched, or otherwise hurt by someone within the past year? If so, by whom?: No Spiritual Healthcare Practices: none [facility] Practices: none Cultural Healthcare Practices: none Are you DNR?: No Advance Directives: No Advance Directives Information Provided: Yes Advance Directives on File: No Recently lost weight without trying: Yes How much weight loss: 2-13 pounds Eating poorly because of decreased appetite: Yes Nutrition screen score: 4 Poor oral hygiene: No service: No Cognitive needs: Yes (wheelchair ) Hearing needs: No Vision needs: Yes (glasses ) Meds Allergies Allergy/AdvReac Type Severity Reaction Status Date / Time Penicillins Allergy Severe Swelling Verified 08/24/24 06:18 Home Medications ?Medication ?Instructions ?Recorded ?Confirmed ?Last Taken ?Type multivitamin with minerals-folic 2 tab PO DAILY 06/25/24 08/12/24 08/23/24 History acid 120 mcg chewable tablet (Women's Multivitamin Gummies) nicotine 21 mg/24 hr daily 21 mg transdermal Q OTHER DAY 08/12/24 08/12/24 08/23/24 History transdermal patch Exam Exam Date and Time: 08/24/24724 Height,Weight and Vital Signs: Height 5 ft Weight 43.545 kg Last Vital Signs Pulse 108 H 08/12/24 10:07 Resp 16 08/12/24 10:07 BP 171/77 H 08/12/24 10:07 Pulse Ox 98 08/12/24 10:07 O2 Del Method Room Air 08/12/24 10:07 Vital Signs Pulse Rate 108 H 08/12/24 10:07 Respiratory Rate 16 08/12/24 10:07 Blood Pressure 171/77 H 08/12/24 10:07 Pulse Oximetry 98 08/12/24 10:07 Oxygen Delivery Method Room Air 08/12/24 10:07 Temperature 97.2 F 08/24/24 06:43 Pulse Rate 78 08/24/24 06:43 Respiratory Rate 16 08/24/24 06:43 Blood Pressure 153/69 H 08/24/24 06:43 Pulse Oximetry 98 08/24/24 06:43 Oxygen Delivery Method Room Air 08/24/24 06:43 Airway Mallampati Class: II TM Dist: >3cm Neck ROM: Limited Loose/Missing/Broken Teeth: No (patient denies any loose or broken teeth) Heart: S1S2 Assessment and Plan Assessment Anesthesia Assessment: Anesthesia Plan Discussed and Chart Reviewed Final Anesthetic Review Family History of Problems with Anesthesia: No History of Problems with Anesthesia: Unobtainable (never had surgery) NPO: Yes ASA Class: III Final Preanesthetic Review: No Changes in Pt Med Stat, Meds/Allgs Chart Reviewed, Consent Obtained/Reviewed and Anes Risks/Benef Reviewed Patient Risk: Intermediate Procedure Risk: High Anesthetic Plan Anesthetic Plan: GA and Agree w/ Assess. and Plan Disposition: Standard PACU
--- NOTE | 2024-08-24 07:39 | MHC.SHP ---
Pre-Procedural Eval Section A - 24 Hr Update-Section A only Date of Service: 08/24/24 The patient is an INPATIENT: No Changes since office visit: Yes Patient answered all questions The patient has been examined within 24 hours of the surgical procedure. The History & Physical has been completed within 30 days and I have reviewed it.: Yes Section B - Complete if H&P > 30 days Chief Complaint: post op Allergies: Allergies Allergy/AdvReac Type Severity Reaction Status Date / Time Penicillins Allergy Severe Swelling Verified 08/24/24 06:18 Plan I have reviewed the history and physical and performed a pertinent physical examination on my patient. No changes have occurred unless specified. Time Spent With Patient Time: Total time managing care of this patient today ____ minutes.
--- NOTE | 2024-08-24 08:09 | PHA.MEDREC ---
Addendum entered by Nedra Razo RPh 08/24/24 08:09: nicotine patch dosing changed from q other day to daily based on previous administration from prior admission and also based on standard nicotine patch dosing Original Note: Pharmacy Consult ? Medication Reconciliation Pharmacy has reviewed the medication reconciliation done by nursing.
--- NOTE | 2024-08-24 10:39 | W.PM.OPN ---
Operative Note Operative Note Date of Service: 08/24/24 Narrative: Operative note by [facility] Preoperative diagnosis:1. Right Carotid stenosis 2. Prior cerebrovascular accident Postoperative diagnosis: Same Procedure: Right Carotid endarterectomy with patch angioplasty Surgeon:Gerry Méndez M.D. Lockstitch Zipper Setter: Daisy Hoff Anesthesia: General Specimens: 1 Drains: 1 Estimated blood loss: 100 mL Indications: 59-year-old female with high-grade right carotid stenosis identified on CTA. She had a stroke event where she was in the hospital month before. She has undergone preoperative risk stratification and now presents for the OR. The patient has signed the informed consent after reviewing risks, complications, benefits, and alternatives previously discussed with the patient. The patient was given the opportunity to ask any additional questions or voice any concerns. All questions were answered to the patient's satisfaction. Procedure in detail: Patient was taken to the operating room and placed in a supine position and prepped and draped in sterile manner with ChloraPrep. Longitudinal incision was made along the anterior border of the sternocleidomastoid carried down through the subcutaneous fat and fascia. Hemostasis was obtained with electrocautery. The right platysma muscle was then divided. The carotid sheath was identified in open. The vagus nerve, Ancef cervicalis, and hypoglossal nerves were identified and avoided. The common internal and external carotids were then freed from the surrounding tissue. At this point, 4000 units of heparin was administered and allowed to circulate for 5 minutes time to take effect. The internal, common, external carotids were clamped in that order. Once this was accomplished, we proceeded with the procedure. The carotid bulb was opened with an 11 blade and extended with Doty scissors through the very tight lesion into normal internal carotid artery. This was then extended down into the common carotid artery. We then placed a Medel shunt. Then the plaque was sharply excised proximally and an eversion endarterectomy was performed successfully at the external. The plaque tapered nicely on to the internal and no tacking sutures were necessary. Heparinized saline was injected and no evidence of flapping or other debris was noted. The remaining carotid was examined, which showed no debris or flaps present. At this point a XenoSure patch was brought on to the field. This was anastomosed to the artery using a 6 0 Prolene in a running fashion. Once approximately 4/5 of the patch was sewn in the shunt was then removed. Prior to the last stitch the internal carotid was back bled through this. Heparinized saline was instilled into the carotid. The last stitch was tied. Hemostasis was excellent. The internal carotid was gently occluded while while of the external and internal were open in that order. Finally the internal was then opened and flow was restored to the entire system. Hemostasis was achieved with interrupted 7-0 Prolene sutures. The wound was irrigated thoroughly. We used a Doppler to check all internal common and external carotid arteries excellent triphasic signals were obtained. We then used Tisseel sealant. Deep layer was reapproximated using a 2-0 poly Sorb and finally the superficial layer with a 3-0 Polysorb. The skin was closed in a subcuticular manner. The patient awoke and neurologic status was checked and appeared to be intact. Sponge, needle and instrument counts were correct. The patient tolerated the procedure well. Returned to recovery with stable vitals. This note is constructed using voice recognition software. While every effort has been made to ensure accuracy, surgical garment fitter errors may have been included. Thank you for allowing me to participate in the care of your patient. Yours sincerely, Gerry Méndez MD, FACS, R.P.V.I.
[2024-08-24] MEDS: niCARdipine HCL 25 MG in 0.9 % Sodium Chloride 250 ML 52 MG IVCONT (11:10)
[2024-08-24] MEDS: 0.9 % Sodium Chloride 1,000 ML 80 ML IVCONT ×2 (13:05→21:49)
[2024-08-24] MEDS: 0.9 % Sodium Chloride Flush 3 ML SYRINGE IVFLUSH ×2 (13:05→21:50)
--- NOTE | 2024-08-24 15:44 | PM.CCHP ---
History of Present Illness Date of Service: 08/24/24 Chief Complaint: elective endarterectomy 59-year-old lady who is a chronic smoker with past medical history of hypertension, CVA with right MCA territory infarcts presents to the hospital for an elective right carotid endarterectomy. She underwent the procedure this morning without any complications, however her blood pressures remained very high found to be in hypotensive emergency so started on nicardipine drip and is in medical ICU Review of Systems Constitutional: Constitutional: Denies body ache(s), Denies chills and Denies daytime sleepiness Eyes: Eyes: Denies exophthalmos and Denies change in vision ENT: Reports Normal hearing present and Denies bleeding gums Cardiovascular: Cardiovascular: Denies chest pain, Denies chest pain at rest, Denies chest pain with activity and Denies Epigastric Pain Respiratory: Respiratory: Denies change in phlegm color, Denies chest congestion and Denies cough Gastrointestinal: Gastrointestinal: Denies abdominal pain, Denies belching and Denies melena Musculoskeletal: Musculoskeletal: Denies abnormal gait and Denies back pain Neurologic: Reports Normal hearing present, Denies Neuro-related abnormal movements, Denies Abnormal speech present and Denies abnormal gait PMFSH Past Medical History Medical History Ambulates with cane Closed left ankle fracture Weakness of left lower extremity Smoker HLD (hyperlipidemia) HTN (hypertension) History of cerebrovascular accident (~06/25/24) Family History Family History Father Mesothelioma Mother Breast cancer Surgical History Surgical History (Updated 08/24/24 @ 06:18 by Nery Boyd RN) No pertinent past surgical history Social History Social History Household Members: Family Household Members Other:: daughter Housing: House Are you a primary medicare insurance specialist to a significant other at home: No Do you presently have visiting nurse or other home services: No Alcohol intake: current Alcohol intake frequency: a few times a month Patient Tobacco Use Status: Current everyday Tobacco user Tobacco use type: Cigarette Cigarettes Per Day: 4 Years Smoked: 40 Smoked in Last 30 Days: Yes e-Cigarette/Vaping Use: Never Used Patient Interested in Nicotine Replacement: Yes Patient Given Instructions on How to Stop Smoking: Yes Date Education Initiated: 08/24/24 Second Hand Smoke Exposure: No Use of substances other than those prescribed or required for medical reasons: No Have you been hit, kicked, punched, or otherwise hurt by someone within the past year? If so, by whom?: No Do you feel safe in your current relationship?: No Is there a partner from a previous relationship who is making you feel unsafe now?: No Are you made to feel afraid or neglected: No Spiritual Healthcare Practices: none Orthodox Healthcare Practices: none Cultural Healthcare Practices: none Are you DNR?: No Advance Directives: No Advance Directives Information Provided: Yes Advance Directives on File: No Do you have a plan to hurt others: No Plan Recently lost weight without trying: No How much weight loss: 2-13 pounds Eating poorly because of decreased appetite: No Nutrition screen score: 1 Nutrition Risks: No Nutritional Risk Patient : No : No Poor oral hygiene: No service: No Cognitive needs: Yes (wheelchair ) Hearing needs: No Vision needs: Yes (glasses ) Travel History Ebola Risk: Travel/Contact With Anyone From Affected Area/s: No Has Patient Experienced Ebola Symptoms: No Meds Allergies Allergy/AdvReac Type Severity Reaction Status Date / Time Penicillins Allergy Severe Swelling Verified 08/24/24 06:18 Active Medications: Current Medications Acetaminophen (Acetaminophen 325 Mg Tablet) 650 mg PO Q6H PRN PRN Reason: Pain, Mild (Pain Scale 1-3), fever or headache Aspirin (Aspirin Enteric Coated 81 Mg Tablet.Dr) 81 mg PO DAILY [facility] Atorvastatin Calcium (Atorvastatin Calcium 40 Mg Tablet) 40 mg PO BEDTIME [facility] Calcium Carbonate (Calcium Carbonate 750 Mg Tab.Chew) 750 mg PO Q4H PRN PRN Reason: Heartburn Sodium Chloride (Ns) 1,000 mls @ 80 mls/hr IVCONT .[id number] [facility] Last Admin: 08/24/24 13:05 Dose: 80 mls/hr Nicardipine HCl 25 mg/ Sodium (Chloride) 260 mls @ 0 mls/hr IVCONT .Q0M [facility]; Protocol Last Titration: 08/24/24 12:40 Dose: 2.5 mg/hr, 26 mls/hr Vancomycin HCl 1,000 mg/ (Sodium Chloride) 270 mls @ 270 mls/hr IV POSTOP@1900 ONE Stop: 08/24/24 19:59 Lisinopril (Lisinopril 10 Mg Tablet) 10 mg PO DAILY [facility]; Protocol Magnesium Hydroxide (Milk Of Magnesia 30 Ml Oral.Susp) 30 ml PO DAILY PRN PRN Reason: Constipation Melatonin (Melatonin 3 Mg Tablet) 6 mg PO BEDTIME PRN PRN Reason: Insomnia Metoprolol Succinate (Metoprolol Succinate Er 50 Mg Tab.Er.24h) 50 mg PO DAILY [facility]; Protocol Morphine Sulfate (Morphine Sulfate 2 Mg/Ml Cartridge) 2 mg IVPUSH Q4H PRN; Protocol PRN Reason: Pain, Severe (Pain Scale 7-10) Nicotine (Nicotine 21 Mg Patch.Td24) 21 mg TRANSDERMA DAILY [facility] Ondansetron HCl (Ondansetron Hcl 4 Mg/2 Ml Vial) 4 mg IVPUSH Q8H PRN PRN Reason: Nausea Oxycodone HCl (Oxycodone Hcl Immed Release 5 Mg Tablet) 5 mg PO Q4H PRN PRN Reason: Pain, Moderate(Pain Scale 4-6) Pharmacy Consult (Consult Rx Vancomycin Dosing) 1 each MISCELLANE DAILY PRN PRN Reason: Consult order Sodium Chloride (0.9 % Sodium Chloride Flush 3 Ml Syringe) [facility] Last Admin: 08/24/24 13:05 Dose: 3 ml Home Medications ?Medication ?Instructions ?Recorded ?Confirmed ?Last Taken ?Type multivitamin with minerals-folic 2 tab PO DAILY 06/25/24 08/12/24 08/23/24 History acid 120 mcg chewable tablet (Women's Multivitamin Gummies) nicotine 21 mg/24 hr daily 21 mg transdermal DAILY 08/12/24 08/24/24 08/23/24 History transdermal patch Physical Exam Vital Signs: Vital Signs: Last Vital Signs Temp 98 F 08/24/24 10:52 Pulse 77 08/24/24 15:00 Resp 19 08/24/24 15:00 BP 121/53 L 08/24/24 15:00 Pulse Ox 97 08/24/24 15:00 O2 Del Method Nasal Cannula 08/24/24 15:00 O2 Flow Rate 2 08/24/24 15:00 BMI result Body Mass Index 18.6 General: Not in any acute distress Nutritional Appearance: Under nourished and under weight Eyes: appearance normal, both eyes and all related structures; Alignment and Position: alignment normal and position normal Neck: No lymphadenopathy, no thyromegaly Resp: bilateral air entry equal, no added sounds present Cardio: Regular rate, regular rhythm; Heart sounds: S1 normal heart sound present and S2 normal heart sound present GI: soft, nontender, no guarding, no hepatosplenomegaly : bladder normal to inspection, bladder normal to palpation, no renal angle tenderness Skin: no rashes or lesions noted and elasticity normal Neuro: oriented to person, oriented to place, oriented to time and moves all extremities Neuro: Cranial nerves: Yes Normal hearing present Speech: No Abnormal speech present Results Labs 08/24/24 06:59 08/24/24 06:59 Labs: Laboratory Results - last 24 hr 08/24/24 06:59 MCV 99.5 H MCH 33.7 H MCHC 33.9 RDW 12.8 Plt Count 283 MPV 10.9 Absolute Nucleated RBC 0.000 Nucleated RBC % (auto) 0.0 PT 13.2 H INR 1.1 APTT 30.4 Anion Gap 12 Estim Creat Clear Calc 56.1 Estimated GFR > 60 Random Glucose 94 Calcium 9.3 D Assessment and Plan (1) Hypertension: Status: Acute (2) Stroke due to stenosis of right carotid artery: Status: Acute (3) Carotid stenosis: Qualifiers: Laterality: right Qualified Code(s): I65.21 - Occlusion and stenosis of right carotid artery Status: Acute (4) Tobacco abuse: Status: Acute (5) Hypercholesterolemia: Status: Acute Plan 59-year-old lady who is a chronic smoker with past medical history of hypertension, CVA with right MCA territory infarcts presents to the hospital for an elective right carotid endarterectomy. She underwent the procedure this morning without any complications, however her blood pressures remained very high found to be in hypotensive emergency so started on nicardipine drip and is in medical ICU Carotid stenosis: Patient has a history of chronic smoking, hypertension and CVA with right-sided MCA infarct in the past due to carotid stenosis. She underwent right carotid endarterectomy this morning, procedure uncomplicated We will closely monitor her blood pressures, we will watch for any signs of airway obstruction or dysphagia or signs of bleeding Hypertensive urgency: Systolic blood pressures over 200 in the operating room Cut in the patient on nicardipine drip for target SBP less than 160 mm Hg We will restart her home lisinopril and metoprolol Hyperlipidemia: We will restart her oral statin Prophylaxis SCDs
[2024-08-24] MEDS: lisinopriL 10 MG TABLET PO (16:28)
[2024-08-24] MEDS: Metoprolol Succinate ER 50 MG TAB.ER.24H PO (16:28)
[2024-08-24] MEDS: Nicotine 21 MG PATCH.TD24 TRANSDERMA (19:34)
[2024-08-24] MEDS: Atorvastatin Calcium 40 MG TABLET PO (21:48)
[2024-08-25] VITALS (15 sets, daily range): BP systolic 141–180; BP diastolic 57–79; PULSE 80–96; RESP 16–25; TEMP 36.2–36.4; O2SAT 92–100; BMI 19.3
[2024-08-25 05:27] LABS: Basophils Absolute Auto 0.1 X10*3/uL (0.0-0.2); Basophils Percent Auto 0.3 % (0-2); Hematocrit 35.7 % (37.0-47.0); Hemoglobin 12.3 g/dl (12.0-16.0); Imm Gran Abs Auto 0.12 X10*3/uL (0.00-0.03); Imm Gran Pct Auto 0.6 % (0.0-0.4); Lymphocytes Absolute Auto 2.2 X10*3/uL (1.2-4.9); Lymphocytes Percent Auto 10.5 % (20-40); MANUAL DIFF FLAG SCAN; Mean Corpuscular HGB Conc 34.5 g/dl (31.0-35.0); Mean Corpuscular Hemoglobin 33.3 pg (27.0-33.0); Mean Corpuscular Volume 96.7 fL (80.0-98.0); Mean Platelet Volume 11.1 fL (9.4-12.3); Monocytes Absolute Auto 1.7 X10*3/uL (0.1-1.2); Monocytes Percent Auto 8.4 % (2-11); Neutrophils Absolute Auto 16.5 x10*3/uL (2.0-8.3); Neutrophils Percent Auto 80.2 % (45-73); Platelet Count 312 X10*3/uL (160-400); Red Blood Count 3.69 X10*6/uL (4.20-5.50); Red Cell Distribution Width 12.6 % (11.0-16.0); SCAN SMEAR FLAG 1; White Blood Count 20.6 X10*3/uL (4.8-10.8)
[2024-08-25 05:50] LABS: SLIDE REVIEW VERIFIED
[2024-08-25 05:51] LABS: Anion Gap 12 (12-20); Blood Urea Nitrogen 8 mg/dL (9-16); Calcium 8.9 mg/dL (8.4-10.2); Carbon Dioxide 23 mmol/L (22-29); Chloride 113 mmol/L (96-108); Creatinine Clr Calc Pharmacy 66.3; Estimated Glomerular Filt Rate > 60; Glucose Random 109 mg/dL (60-115); Potassium 3.7 mmol/L (3.3-5.1); Sodium 144 mmol/L (135-145)
[2024-08-25] MEDS: Aspirin Enteric Coated 81 MG TABLET.DR PO (07:26)
[2024-08-25] MEDS: lisinopriL 10 MG TABLET PO (07:26)
[2024-08-25] MEDS: Metoprolol Succinate ER 50 MG TAB.ER.24H PO (07:26)
[2024-08-25] MEDS: 0.9 % Sodium Chloride Flush 3 ML SYRINGE IVFLUSH (07:27)
--- NOTE | 2024-08-25 09:02 | HO.VASCPN ---
Subjective Subjective Date of Service: 08/25/24 Patient reports: feels better Interval history: Bessie is sleeping well. She states she is only tolerating soft foods but is drinking water/fluids. She has concerns for some numbness to the left of the incision area. She also states she has some discomfort when swallowing but is able to swallow. She is feeling better. Physical Exam Vital Signs: Vital Signs: Last Vital Signs Temp 97.5 F 08/25/24 08:00 Pulse 92 08/25/24 08:00 Resp 20 08/25/24 08:00 BP 156/77 H 08/25/24 08:00 Pulse Ox 95 08/25/24 08:00 O2 Del Method Nasal Cannula 08/25/24 08:00 O2 Flow Rate 2 08/25/24 08:00 Oxygen Flow Rate 2 08/25/24 06:56 BMI result Body Mass Index 19.3 Const: General: comfortable and no acute distress Orientation/consciousness: patient oriented x3 Neck: Other: Dressing in place, C/D/I Resp: Effort & Inspection: normal respiratory effort and able to speak in complete sentences Cardio: Rate: regular rate Rhythm: regular rhythm Skin: Other: right neck dressing C/D/I. Neuro: General: patient oriented x3 and CN's II-XI intact bilaterally Cranial nerves: Yes CN's II-XII intact bilaterally Progress Note: A&P Assessment and plan (1) Carotid stenosis: Status: Acute (2) Stroke due to stenosis of right carotid artery: Status: Acute Plan Bessie is doing well this morning. She denies any overall numbness/tingling/weakness/dizziness/lightheadedness. She does endorse concerns for numbness, just left of the incision area only. She also states she feels discomfort when swallowing but is able to swallow without difficulty. She denies any shortness of breath/diff breathing/CP. She has been eating softer foods and drinking well without difficulty. We will have Wright cath and A line removed today as well as the IVF. We did discuss that some numbness is common after this type of surgery and it can take a couple of weeks for the sensation to come back. I did discuss that in rare cases it will not come back at all. I also discussed with her that the discomfort in swallowing should also get better in the next couple of days. The pt remains stable and is ready for discharge today. She has a follow up scheduled in our office in 2 weeks. Time Spent With Patient Time: Total time managing care of this patient today __25__ minutes. Procedures Date of Service Date of Service: 08/25/24 Quality Stroke Does the patient have a stroke diagnosis?: No VTE Prior VTE?: No VTE Risk Level:: Surgical - moderate VTE Device Contraindication: N/A - Device Ordered VTE Drug Contraindication: Treatment Not Indicated
--- NOTE | 2024-08-25 09:16 | PM.CCPN ---
Subjective Subjective Date of Service: 08/25/24 Critical Care Time (minutes): 35 Comment: complains of numbness around surgical site blood pressure reading inaccurate due to movement Physical Exam Vital Signs: Vital Signs: Last Vital Signs Temp 97.5 F 08/25/24 08:00 Pulse 92 08/25/24 08:00 Resp 20 08/25/24 08:00 BP 156/77 H 08/25/24 08:00 Pulse Ox 95 08/25/24 08:00 O2 Del Method Nasal Cannula 08/25/24 08:00 O2 Flow Rate 2 08/25/24 08:00 Oxygen Flow Rate 2 08/25/24 06:56 BMI result Body Mass Index 19.3 General: Not in acute distress, normal appearing Nutritional Appearance: well nourished and under weight Eyes: appearance normal, both eyes and all related structures; Alignment and Position: alignment normal and position normal Neck: No lymphadenopathy, no thyromegaly, surgical site looks okay Resp: bilateral air entry equal, occasional added sounds present Cardio: Regular rate, regular rhythm; Heart sounds: S1 normal heart sound present and S2 normal heart sound present GI: soft, nontender, no guarding, no hepatosplenomegaly : bladder normal to inspection, bladder normal to palpation, no renal angle tenderness Skin: no rashes or lesions noted and elasticity normal Neuro: oriented to person, oriented to place, oriented to time and moves all extremities Objective Data Labs 08/25/24 05:10 08/25/24 05:10 Labs: Laboratory Results - last 24 hr 08/25/24 05:10 WBC 20.6 H RBC 3.69 L Hgb 12.3 Hct 35.7 L MCV 96.7 MCH 33.3 H MCHC 34.5 RDW 12.6 Plt Count 312 MPV 11.1 Immature Gran % (Auto) 0.6 H Neut % (Auto) 80.2 H Lymph % (Auto) 10.5 L [place] % (Auto) 8.4 Eos % (Auto) 0.0 Baso % (Auto) 0.3 Lymph # (Auto) 2.2 [place] # (Auto) 1.7 H Eos # (Auto) 0.0 Baso # (Auto) 0.1 Abs Immat Gran (auto) 0.12 H Absolute Neuts (auto) 16.5 H Absolute Nucleated RBC 0.000 Nucleated RBC % (auto) 0.0 Smear Tech's Comments VERIFIED Sodium 144 Potassium 3.7 Chloride 113 H Carbon Dioxide 23 Anion Gap 12 BUN 8 L Creatinine 0.63 Estim Creat Clear Calc 66.3 Estimated GFR > 60 Random Glucose 109 Calcium 8.9 Progress Note: A&P Assessment and plan (1) Pre-operative cardiovascular exam, new EKG abnormalities c/w ischemia: Status: Acute (2) Hypertension: Status: Acute (3) Hypercholesterolemia: Status: Acute (4) Tobacco abuse: Status: Acute (5) Stroke due to stenosis of right carotid artery: Status: Acute Plan 59-year-old lady who is a chronic smoker with past medical history of hypertension, CVA with right MCA territory infarcts presents to the hospital for an elective right carotid endarterectomy. She underwent the procedure this morning without any complications, however her blood pressures remained very high found to be in hypotensive emergency so started on nicardipine drip and is in medical ICU Carotid stenosis: Patient has a history of chronic smoking, hypertension and CVA with right-sided MCA infarct in the past due to carotid stenosis. Status post right carotid endarterectomy on 08/24/2024, procedure uncomplicated Hypertension Off nicardipine drip her home lisinopril and metoprolol has been restarted, apparently patient was off of her home medications for about a week for the surgery. She has a home blood pressure monitoring cuff which her daughter can help her with, and also has an appointment with primary care physician in a week. Hyperlipidemia: Continue oral statin Prophylaxis SCDs Quality Stroke Does the patient have a stroke diagnosis?: No VTE Prior VTE?: No VTE Risk Level:: Surgical - moderate VTE Device Contraindication: N/A - Device Ordered VTE Drug Contraindication: N/A - Med Ordered
[2024-08-25] MEDS: Nicotine 21 MG PATCH.TD24 TRANSDERMA (09:31)
--- NOTE | 2024-08-25 12:57 | P.DS_ITS ---
DS: Providers Provider Date of Service: 08/25/24 Date of admission: 08/24/24 06:02 Primary care physician: Shani Gregorio PA-C DS: Diagnosis Discharge Diagnosis (1) Carotid stenosis: Status: Acute (2) Stroke due to stenosis of right carotid artery: Status: Acute DS: Summary Hospital Course Hospital Course: Bessie is post-op day one from a right CEA. She had an uneventful night in the ICU and remains stable. The dressing was taken down and the site is C/D/I. She has no complaints this morning other than some numbness to the left of the surgical site, which we discussed was normal and could resolve as soon as a week or up to 2 months. We discussed light physical activity around the house and not lifting more than a gallon of milk. She is not allowed to drive until after her 2w follow up in our office, already scheduled. If there is any bleeding or discharge from the surgical site, we recommend she contact our office. If she experiences dizziness, weakness, etc, then she needs to go to the ER. Status at Discharge Cognitive/behavioral status at discharge: A&Ox3. Will be going home with her daughter, who will be assisting the pt over the next 2 weeks. Functional status at discharge: independent ambulation Overall status at discharge: patient is back to baseline Time Attestation Discharge Coordination Time (in mins): 35 minutes Quality: Safe Use of Opioids Does Pt have an Active Cancer Diagnosis on the Problem List?: No Quality: Stroke Does the patient have a stroke diagnosis?: No Physical Exam Vital Signs: Vital Signs: Last Vital Signs Temp 97.5 F 08/25/24 12:00 Pulse 82 08/25/24 12:00 Resp 18 08/25/24 12:00 BP 141/57 H 08/25/24 12:00 Pulse Ox 95 08/25/24 12:00 O2 Del Method Room Air 08/25/24 12:00 O2 Flow Rate 2 08/25/24 08:00 Oxygen Flow Rate 2 08/25/24 06:56 BMI result Body Mass Index 19.3 Const: General: no acute distress Orientation/consciousness: patient oriented x3 HEENT: Ears: hearing grossly normal bilaterally Neck: Other: Right neck: site is C/D/I with steri strips in place. No bleeding/discharge noted on dressing. No erythema, bruising or swelling noted around incision site. Resp: Effort & Inspection: normal respiratory effort and able to speak in complete sentences Auscultation: clear to auscultation bilaterally Cardio: Jugular venous distension: no JVD Rate: regular rate Rhythm: regular rhythm Heart sounds: S1 normal heart sound present and S2 normal heart sound present Bruits: no abdominal aortic bruits, no carotid bruits, no femoral bruits and no renal bruits Peripheral pulses: Peripheral pulses 2+ throughout GI: Palpation (GI): No Abdominal aortic bruit present Skin: General skin exam: no rashes or lesions noted Hair: normal Neuro: General: patient oriented x3 Cranial nerves: Yes CN's II-XII intact bilaterally Cognition (Neuro): normal cognition Gait exam (Neuro): Normal gait present Motor exam (neuro): 5/5 motor strength present throughout Psych: Appearance: grossly normal Speech and movement: Normal speech and movement present Affect: normal affect DS: Data Data Completed and Pending Pending studies at discharge: Pending at discharge 08/24/24 09:01 Surgical [PTH] Routine Labs on day of discharge: Laboratory Results - last 24 hr 08/25/24 05:10 WBC 20.6 H RBC 3.69 L Hgb 12.3 Hct 35.7 L MCV 96.7 MCH 33.3 H MCHC 34.5 RDW 12.6 Plt Count 312 MPV 11.1 Immature Gran % (Auto) 0.6 H Neut % (Auto) 80.2 H Lymph % (Auto) 10.5 L [place] % (Auto) 8.4 Eos % (Auto) 0.0 Baso % (Auto) 0.3 Lymph # (Auto) 2.2 [place] # (Auto) 1.7 H Eos # (Auto) 0.0 Baso # (Auto) 0.1 Abs Immat Gran (auto) 0.12 H Absolute Neuts (auto) 16.5 H Absolute Nucleated RBC 0.000 Nucleated RBC % (auto) 0.0 Smear Tech's Comments VERIFIED Sodium 144 Potassium 3.7 Chloride 113 H Carbon Dioxide 23 Anion Gap 12 BUN 8 L Creatinine 0.63 Estim Creat Clear Calc 66.3 Estimated GFR > 60 Random Glucose 109 Calcium 8.9 Discharge Plan Discharge Anticipated Discharge Date/Time: 08/25/24 12:38 Patient Disposition: Home, Self-Care Discharge Diagnosis: s/p right CEA Referrals: Shani Gregorio PA-C [Primary Care Provider] - 1 Week Discharge Medications: New oxycodone-acetaminophen [Percocet] 5-325 mg tablet 1 tab PO Q8H PRN (Reason: pain) Qty: 10 0RF Rx Instructions: Partial Fill upon patient request. Continued multivit with min-folic acid [Women's Multivitamin Gummies] 120 mcg Tablet,Chewable 2 tab PO DAILY atorvastatin 40 mg Tablet 40 mg PO BEDTIME Qty: 30 0RF aspirin 81 mg Tablet,Delayed Release (Dr/Ec) 81 mg PO DAILY Qty: 30 0RF lisinopril 10 mg Tablet 10 mg PO DAILY Qty: 30 0RF Protocol: Hold for SBP< HOLD for SBP < : 90 nicotine (polacrilex) 2 mg Gum 2 mg buccal Q2H PRN (Reason: Nicotine Cravings) Qty: 50 0RF nicotine 21 mg/24 hr patch 24 hour 21 mg transdermal DAILY metoprolol succinate [Toprol XL] 50 mg tablet extended release 24 hr 50 mg PO DAILY Qty: 30 5RF Discharge Orders: Discharge Order (Routine); Ordered 08/25/24 Ordered By: Daisy Eric Diet: Advance to usual diet Activity on Discharge: As tolerated Stand Alone Forms: Patient Portal Discharge page Print Language: K[place] Care Plan Goals: Keep the site clean and dry. You may shower, do not submerge underwater. Tylenol for pain; if the pain is not controlled with Tylenol, then we have sent a prescription for Percocet, take one tablet q8h prn. Follow up in 2w. Health Concerns: Keep area clean and dry. If you experience weakness, dizziness, headaches, please report to the ER. If there is any bleeding or discharge from the site, please call our office at [phone] Plan of Treatment: Continue to keep the area clean and dry, do not submerge underwater. Do not lift more than a gallon of milk and only do light physical activity around the house. You cannot drive for the next 2w, until your follow up. The steri-strips will likely fall off in the next 5-7d, if they are peeling off, you may remove them. Assessment: s/p right CEA. Patient Instructions: Carotid Endarterectomy (DC)
--- NOTE | 2024-08-25 13:02 | MHC.CM.PN ---
Pt will d/c to home today - has family to assist with care needs, no DME or services. Dtr will transport pt to home.
--- NOTE | 2024-08-25 13:50 | HO.POSTANES ---
Post Anesthesia Evaluation Post Anesthesia Evaluation Date of Service: 08/24/24 Vital Signs: Vital Signs Temp Pulse Resp BP Pulse Ox O2 Del Method O2 Flow Rate 08/25/24 12:00 97.5 F 82 18 141/57 H 95 Room Air 08/25/24 11:00 80 20 146/66 H 94 Room Air 08/25/24 10:00 85 20 146/75 H 95 Room Air 08/25/24 09:00 87 18 157/61 H 95 Room Air 08/25/24 08:00 97.5 F 92 20 156/77 H 95 Nasal Cannula 2 08/25/24 07:26 180/69 H 08/25/24 07:26 180/69 H 08/25/24 07:00 96 25 H 167/78 H 97 Room Air 08/25/24 06:56 96 Nasal Cannula 08/25/24 06:00 89 18 153/70 H 97 Nasal Cannula 2 08/25/24 05:00 90 20 152/72 H 96 Nasal Cannula 2 08/25/24 04:00 84 16 159/66 H 92 Nasal Cannula 2 08/25/24 02:56 97.2 F 82 20 146/77 H 98 Nasal Cannula 2 08/25/24 02:00 87 20 162/60 H 99 Nasal Cannula 2 Anesthesia: General Endotracheal-GETA Mental Status: Awake Pain Control: Satisfactory Nausea/Vomiting: None Hydration: Adequate Anesthesia-Related Issues: No Anes. Related Issues
== END 2024-08-25 13:00 | disposition home or self-care (01) | DRG 24 ==
LOC: HO.SSSA 06:37 → HO.ICU 12:06
PROVIDERS: Nurse Practitioner; Physician Assistant Surgical; Admitting Provider Surgery Vascular Surgery; Visit Provider Surgery Vascular Surgery
PROC: 03CM0ZZ Extirpation of Matter from Right External Carotid Artery, Open Approach (ICD-10-PCS; CPT 35301; principal; 2024-08-24 07:30)
DX: I65.21 Occlusion and stenosis of right carotid artery (principal); E78.00 Pure hypercholesterolemia, unspecified; F17.210 Nicotine dependence, cigarettes, uncomplicated; Z71.6 Tobacco abuse counseling; I16.0 Hypertensive urgency; Z86.73 Personal history of transient ischemic attack (TIA), and cerebral infarction without residual deficits; Z79.82 Long term (current) use of aspirin; Z79.899 Other long term (current) drug therapy
CPT/HCPCS: 36415; 80048; 85025; 85027; 85610; 85730; 86850; 86900; 86901; 88304; 88311; A4649; C1758; C1768; C9250; J0131; J1100; J1644; J2003; J2250; J2305; J2371; J2404; J2405; J2704; J2795; J3010; J3370

== ENCOUNTER → 2024-08-24 06:02 | Outpatient (BNV) | payer OTHER, SELFPAY | PROVIDERS: Admitting Provider Surgery Vascular Surgery; Visit Provider Internal Medicine Critical Care Medicine | DX: I63.231 Cerebral infarction due to unspecified occlusion or stenosis of right carotid arteries (principal); R94.31 Abnormal electrocardiogram [ECG] [EKG]; I10 Essential (primary) hypertension; Z72.0 Tobacco use | CPT/HCPCS: 99223; 99233 ==

== ENCOUNTER → 2024-08-24 06:02 | Outpatient (BNV) | payer OTHER, SELFPAY | PROVIDERS: Admitting Provider Surgery Vascular Surgery; Visit Provider Surgery Vascular Surgery | DX: I65.21 Occlusion and stenosis of right carotid artery (principal); I63.231 Cerebral infarction due to unspecified occlusion or stenosis of right carotid arteries | CPT/HCPCS: 35301; 99024; 99499 ==

== ENCOUNTER 2024-09-08 08:53 | Outpatient (AMB) | payer OTHER, SELFPAY ==
--- NOTE | 2024-09-08 08:55 | MHC.OFFVIS ---
Intake Visit Reasons: 2 week follow up right CEA Intake Note: Patient presents for 2 week follow up right CEA. No complaints. Allergies Penicillins Allergy (Severe, Verified 09/08/24 08:57) Swelling HPI HPI 2 week follow up right CEA: Details: Pleasant 59-year-old female presents for follow-up status post right carotid endarterectomy. Should high-grade stenosis originally noted on CTA. She subsequently underwent right carotid endarterectomy on 08/24/2024. She reports she is doing fairly well. No postoperative issues. Of note she is being maintained on aspirin and statin. [facility] Medical History Ambulates with cane Closed left ankle fracture Weakness of left lower extremity Smoker HLD (hyperlipidemia) HTN (hypertension) History of cerebrovascular accident (~06/25/24) Surgical History No pertinent past surgical history Family History Father Mesothelioma Mother Breast cancer Social History Household Members: Family Household Members Other:: daughter Housing: House Are you a primary assistant child care teacher to a significant other at home: No Do you presently have visiting nurse or other home services: No 75 years or older and lives alone: No Alcohol intake: current Alcohol intake frequency: a few times a month Patient Tobacco Use Status: Current everyday Tobacco user Tobacco use type: Cigarette Cigarettes Per Day: 4 Years Smoked: 40 e-Cigarette/Vaping Use: Never Used Second Hand Smoke Exposure: No service: No Cognitive needs: Yes (wheelchair ) Hearing needs: No Vision needs: Yes (glasses ) Review of Systems Const All systems reviewed & are unremarkable except as noted in HPI and below Reports no additional complaints ENT Reports Normal hearing present Card Denies chest pain, Denies chest pain at rest, Denies chest pain with activity and Denies pedal edema Resp Denies cough GI Denies abdominal pain Musc Denies abnormal gait, Denies muscle cramps and Denies radiating pain into limb Skin/Breast Denies skin ulcer and Denies wounds Neuro Reports Normal hearing present and Denies abnormal gait Psych Reports no additional complaints Physical Exam Const General: cooperative, healthy appearing and comfortable Orientation/consciousness: oriented to person, oriented to place and oriented to time HEENT Head: Yes normal to inspection Neck Neck: Yes normal visual inspection Carotids: no bruits Chest Chest palpation & inspection: normal inspection of the chest Resp Effort & Inspection: normal respiratory effort and able to speak in complete sentences Auscultation: clear to auscultation bilaterally, no crackles, no rales, no rhonchi and no wheezes Cardio Rate: regular rate Rhythm: regular rhythm Heart sounds: S1 normal heart sound present and S2 normal heart sound present Bruits: no carotid bruits Peripheral pulses: Peripheral pulses 2+ throughout GI Inspection: Yes normal to inspection Skin Other: Neck incision healing well Wounds: no wounds Hair: normal Neuro General: oriented to person, oriented to place and oriented to time Cranial nerves: Yes CN's II-XII intact bilaterally and Yes Normal hearing present Cognition (Neuro): normal cognition Motor exam (neuro): 5/5 motor strength present throughout Extrem Other: venous exam: No significant superficial varicosities or spider telangiectasias, minimal edema General: No clubbing, No cyanosis and No edema Psych Appearance: grossly normal Mental Status: mental status grossly normal Speech and movement: Normal speech and movement present Assessment & Plan Assessment & Plan (1) Carotid stenosis: Comment: 08/24/2024 - right carotid endarterectomy Code(s): I65.29 - Occlusion and stenosis of unspecified carotid artery Category: Medical Qualifiers: Laterality: right Qualified Code(s): I65.21 - Occlusion and stenosis of right carotid artery Plan: In short patient has done well status post right carotid endarterectomy. Will plan for 3 month surveillance follow-up. Should there be any interval issues happy to see her back sooner. Thank you for allowing us to assist in her care. If there are any questions or concerns please do not hesitate to contact us. Orders: Orders US carotid duplex BI 3 Months I65.21 - Occlusion and stenosis of right carotid artery Coding Level of Care Code Est Pt Level 4 (95006) Diagnoses Stenosis of right carotid artery I65.21 Laterality: right
== END 2024-09-08 09:24 | disposition home or self-care (01) ==
PROVIDERS: Visit Provider Surgery Vascular Surgery
DX: I65.21 Occlusion and stenosis of right carotid artery (principal)
CPT/HCPCS: 99024

== ENCOUNTER → 2024-09-08 08:53 | Outpatient (BNVA) | payer OTHER, SELFPAY | PROVIDERS: Visit Provider Surgery Vascular Surgery | DX: I65.21 Occlusion and stenosis of right carotid artery (principal) | CPT/HCPCS: 99212 ==

== ENCOUNTER 2024-11-25 14:13 | Outpatient (AMB) | payer OTHER, SELFPAY ==
--- NOTE | 2024-11-25 14:27 | ...WebTmpl.AM.BPCHK ---
Intake Intake Visit Reasons: Blood pressure check Allergies Penicillins Allergy (Severe, Verified 09/08/24 08:57) Swelling Coding
[2024-11-25 14:28] VITALS: BP 178/90; PULSE 121; O2SAT 97; BMI 19.8
--- NOTE | 2024-11-25 14:28 | A.OFFPC_ITS ---
Vital Signs 11/25/24 14:28 Height 5 ft Weight 101 lb 6 oz BMI 19.8 BP 178/90 H Blood Pressure Location Lt brachial Position Sitting Pulse 121 H Pulse Source Pulse Oximeter Pulse Oximetry (%) 97 Oxygen Delivery Method Room Air Intake Visit Reasons: Blood pressure check Animal Control Officer Required: No Accompanied by: Self / Same As Patient Allergies Penicillins Allergy (Severe, Verified 11/25/24 14:29) Swelling Medication List - Last Reconciled 11/25/24 by Shani Gregorio PA-C aspirin 81 mg PO DAILY atorvastatin 40 mg PO BEDTIME lisinopril 10 mg See Protocol PO DAILY metoprolol succinate ER (Toprol XL) 50 mg PO DAILY multivit with min-folic acid 120 mcg (Women's Multivitamin Gummies) 2 tabs PO DAILY nicotine 21 mg transdermal DAILY nicotine (polacrilex) 2 mg buccal Q2H PRN oxycodone-acetaminophen 5-325 mg (Percocet) 1 tab PO Q8H PRN Tobacco use date assessed: 11/25/24 Dental Screening Dental Screen Date: 11/25/24 Did you have a dental visit in the last 12 months?: No Did you have a dental problem in the last 6 months where you did not have access to dental care?: No Was dental information given to patient?: No HPI Blood pressure check HPI Details 59-year-old female with past medical his tory of CVA, carotid stenosis, tobacco abuse, hypercholesterolemia, hypertension, insomnia and closed fracture of left distal fibula last seen 07/2024 coming in for follow up. Patient underwent carotid endarterectomy 08/24/2024 without complication advised to follow up in the office in 2 weeks. Seen by vascular surgery postoperatively 09/09/2024 ordered for carotid duplex and follow up in 3 months.? Patient was se en by Cardiology 08/12/2024 for cardiovascular risk stratification prior to noncardiac surgery for carotid stenosis started on metoprolol for tachycardia and advised to continue on dual antiplatelet therapy and follow up in 1 year. Patient tells us she continues to have occasional left leg numbness ever since her stroke and has not yet undergone physical therapy due to insurance purposes. She was unable to schedule a follow up with us or have all of her screenings done due to insurance issues but they have now been sorted. She has been sleeping better at night. Denies any headaches, chest pain, vision changes or any other concerns. She does continue to smoke but has cut back using the nicotine patches and lozenges. [facility] Medical History Ambulates with cane Closed left ankle fracture Weakness of left lower extremity Smoker HLD (hyperlipidemia) HTN (hypertension) History of cerebrovascular accident (~06/25/24) Surgical History No pertinent past surgical history Family History Father Mesothelioma Mother Breast cancer Social History Household Members: Family Household Members Other:: daughter Housing: House Are you a primary personal care attendant to a significant other at home: No Do you presently have visiting nurse or other home services: No 75 years or older and lives alone: No Alcohol intake: current Alcohol intake frequency: a few times a month Patient Tobacco Use Status: Current everyday Tobacco user Tobacco use type: Cigarette Cigarettes Per Day: 4 Years Smoked: 40 e-Cigarette/Vaping Use: Never Used Second Hand Smoke Exposure: No service: No Cognitive needs: Yes (wheelchair ) Hearing needs: No Vision needs: Yes (glasses ) Questionnaire PHQ-9 Over the last 2 weeks, how often have you been bothered by any of the following problems? 1. Little interest or pleasure in doing things: not at all 2. Feeling down, depressed, or hopeless: not at all 3. Trouble falling or staying asleep, or sleeping too much: several days 4. Feeling tired or having little energy: several days 5. Poor appetite or overeating: several days 6. Feeling bad about yourself - or that you are a failure or have let yourself or your family down: not at all 7. Trouble concentrating on things, such as reading the newspaper or watching television: not at all 8. Moving or speaking so slowly that other people could have noticed. Or the opposite - being so fidgety or restless that you have been moving around a lot more than usual: not at all 9. Thoughts that you would be better off or of hurting yourself in some way: not at all Total score: 3 60619 - PHQ-9 Billing: Yes Source: Developed by Drs. Mikel Cali, Yael Martins, Adan Garcia and colleagues, with an educational manpreet from [employer]. Thrive Questionnaire Date Thrive assessed: 11/25/24 I am a: Patient What is your living situation today?: I have a steady place to live Within the past 12 months, did the food you bought not last and you didn't have the money to get more?: Never true Within the past 12 months, did you worry whether your food would run out before you got money to buy more?: Never true Do you have trouble paying for medicines?: No Do you have trouble getting transportation to medical appointments?: No Do you have trouble paying your heating and electricity bill?: No Do you have trouble taking care of your child, family member or friend?: No Do you have trouble with day-to-day activities such as bathing, preparing meals, shopping, managing finances, etc.?: Yes Are you currently unemployed and looking for a job?: No Are you interested in more education?: No Please select the resources that you would like help with: None Currently or been in a relationship where the following occur: No concerns reported THRIVE Score: 0 AUDIT C Alcohol Use Questionnaire (AUDIT-C) 1. How often do you have a drink containing alcohol?: Monthly or less 2. How many drinks containing alcohol do you have on a typical day when you are drinking?: 1 or 2 3. How often do you have six or more drinks on one occasion?: Never Total Score: 1 ZOILA-7 AMB Questionnaire ZOILA-7 Date ZOILA - 7 assessed: 11/25/24 Feeling nervous, anxious, or on edge: 0 = Not at all Not being able to stop or control worryin = Not at all Worrying too much about different things: 0 = Not at all Trouble relaxin = Not at all Being so restless that it is hard to sit still: 0 = Not at all Becoming easily annoyed or irritable: 0 = Not at all Feeling afraid as if something awful might happen: 0 = Not at all Total ZOILA-7 score (0-4 normal; 5-9 mild; 10-14 moderate; 15-21 severe): 0 Source: Developed by Drs. Mikel Cali, Yael Martins, Adan Garcia and colleagues, with an educational manpreet from [employer]. ZOILA-7 Assessment Billing ZOILA-7 Assessment Tool: ZOILA-7 Assessment 01498 Review of Systems Const Denies body aches, Denies chills, Denies fever(s), Denies headache(s) and Denies poor appetite Eyes Reports no additional complaints ENT Denies dysphagia, Denies dizziness, Denies headache(s) and Denies odynophagia Card Denies chest pain, Denies syncope, Denies edema, Denies irregular heart rhythm, Denies lightheadedness and Denies dyspnea Resp Denies cough and Denies dyspnea GI Denies abdominal pain, Denies constipation, Denies dysphagia, Denies diarrhea, Denies nausea, Denies odynophagia and Denies vomiting Reports no additional complaints Musc Reports no additional complaints and Denies abnormal gait Skin/Breast Reports system reviewed and no additional complaints, except as documented Neuro Denies abnormal gait, Denies dizziness, Denies syncope and Denies headache(s) Psych Reports no additional complaints Physical exam (Primary Care) Vital Signs: Last Vital Signs Pulse 121 H 11/25/24 14:28 BP 178/90 H 11/25/24 14:28 Pulse Ox 97 11/25/24 14:28 Oxygen Delivery Method Room Air 11/25/24 14:28 BMI result Body Mass Index 19.8 Tobacco/Smoking Status: Tobacco use Status Tobacco use date assessed 11/25/24 11/25/24 14:32 Patient Tobacco Use Status Current everyday Tobacco 11/25/24 14:32 Tobacco use type Cigarette 11/25/24 14:32 e-Cigarette/Vaping Use Never Used 11/25/24 14:32 PHQ-9: PHQ-9 Score PHQ-9: Total score 3 11/25/24 15:02 Thrive Assessment: Date of Thrive Assessment Date Thrive assessed 11/25/24 11/25/24 14:32 Currently or been in a relationship where the following occur: No concerns reported Const General: cooperative, healthy appearing, comfortable and no acute distress Orientation/consciousness: patient oriented x3 HENMT Head: Yes normocephalic Ears: hearing grossly normal bilaterally General nose exam: Normal external nose present Eyes General: appearance normal, both eyes and all related structures Conjunctivae: conjunctivae normal Neck Neck: Yes full ROM and Yes no lymphadenopathy Resp Effort & Inspection: normal respiratory effort Auscultation: clear to auscultation bilaterally, no crackles, no rales, no rhonchi and no wheezes Cardio Rate: regular rate Rhythm: regular rhythm Skin General skin exam: no rashes or lesions noted Neuro General: patient oriented x3 Gait exam (Neuro): Normal gait present Extrem General: Yes normal to inspection, Yes full ROM and No edema Psych Affect: normal affect Attitude: cooperative Insight: Good insight present (Psych) Judgement: Good judgement present (Psych) Coding Level of Care Code Est Pt Level 4 (94011) Diagnoses Hypertension I10 Hypercholesterolemia E78.00 Tobacco abuse Z72.0 Stroke due to stenosis of right carotid artery I63.231 Stenosis of right carotid artery I65.21 Laterality: right Additional Codes ZOILA-7 Assessment Billing - ZOILA-7 Assessment Tool: ZOILA-7 Assessment 68165 ([id number]) PHQ-9 - 11919 - PHQ-9 Billing: Yes ([id number]) Assessment & Plan Assessment & Plan (1) Hypertension: Code(s): I10 - Essential (primary) hypertension Category: Medical Plan: Continue on current blood pressure medication. Avoid salt intake and encourage healthy diet and regular exercise. Blood pressure elevated today states she has been out of the metoprolol for several months and has been unable to fill it. Refilled the metoprolol today and sent prescription for blood pressure cuff to monitor blood pressure. We will have patient follow up in 3 weeks with nurse navigators in 6 weeks with us. Advised patient if blood pressures at home are over 140/90 to reach out to the office. We will plan to increase lisinopril if blood pressure remains elevated. (2) Hypercholesterolemia: Code(s): E78.00 - Pure hypercholesterolemia, unspecified Category: Medical Plan: Avoid foods that are high in cholesterol such as red meat, fried foods, eggs and baked goods. Triglyceride goal of less than 150 and LDL goal of less than 70. Continue on atorvastatin 40 mg. Reminded patient about blood work (3) Tobacco abuse: Code(s): Z72.0 - Tobacco use Category: Medical Plan: Smoking cigarettes and the use of tobacco can be harmful. We discussed the importance of stopping and options to aid in smoking cessation. Referral placed to lung cancer screening program (4) Stroke due to stenosis of right carotid artery: Code(s): I63.231 - Cerebral infarction due to unspecified occlusion or stenosis of right carotid arteries Category: Medical Plan: Patient having CVA due to stenosis of right carotid artery currently following with vascular surgery status post carotid endarterectomy. Is scheduled to have ultrasound and follow up with vascular surgery after that. Advised good control of blood pressure, blood sugar and cholesterol. (5) Carotid stenosis: Comment: 08/24/2024 - right carotid endarterectomy Code(s): I65.29 - Occlusion and stenosis of unspecified carotid artery Category: Medical Qualifiers: Laterality: right Qualified Code(s): I65.21 - Occlusion and stenosis of right carotid artery Plan: Currently following with vascular surgery will have ultrasound and follow up in the coming months. Plan This note was constructed using voice recognition software. While every effort has been made to ensure accuracy and outer diameter grinder tool, still areas may have been included sometimes these areas may affect the content or meeting of the given symptoms. Total time spent caring for the patient today was 30 minutes. This includes time spent before the visit reviewing the chart, time spent during the visit, and time spent after the visit and documentation. Orders: Orders PT Evaluation and Treatment Today S82.832A - Other fracture of upper and lower end of left fibula, initial encounter for closed fracture Referrals Neurology Referral I63.231 - Cerebral infarction due to unspecified occlusion or stenosis of right carotid arteries, I63.9 - Cerebral infarction, unspecified Medications: New blood pressure test kit-small As directed up to QID 1 ea 0RF nicotine 21 mg transdermal DAILY 28 ea 0RF Refilled metoprolol succinate ER (Toprol XL) 50 mg PO DAILY 90 tabs 5RF aspirin 81 mg PO DAILY 90 tabs 3RF atorvastatin 40 mg PO BEDTIME 90 tabs 3RF lisinopril 10 mg See Protocol PO DAILY 90 tabs 3RF nicotine (polacrilex) 2 mg buccal Q2H PRN 50 ea 0RF Nicotine Cravings
== END 2024-11-25 15:05 | disposition home or self-care (01) ==
DX: I10 Essential (primary) hypertension (principal); E78.00 Pure hypercholesterolemia, unspecified; Z72.0 Tobacco use; I63.231 Cerebral infarction due to unspecified occlusion or stenosis of right carotid arteries; I65.21 Occlusion and stenosis of right carotid artery

== ENCOUNTER → 2024-11-25 14:13 | Outpatient (BNVA) | payer OTHER, SELFPAY | DX: E78.00 Pure hypercholesterolemia, unspecified (principal); I10 Essential (primary) hypertension; I65.21 Occlusion and stenosis of right carotid artery; F17.210 Nicotine dependence, cigarettes, uncomplicated; S82.832D Other fracture of upper and lower end of left fibula, subsequent encounter for closed fracture with routine healing; X58.XXXD Exposure to other specified factors, subsequent encounter; Z86.73 Personal history of transient ischemic attack (TIA), and cerebral infarction without residual deficits | CPT/HCPCS: 96127; 99212 ==

== ENCOUNTER 2025-01-06 14:00 | Outpatient (AMB) | payer OTHER, SELFPAY ==
--- NOTE | 2025-01-06 14:12 | A.OFFPC_ITS ---
Vital Signs 01/06/25 14:14 Height 5 ft Weight 99 lb 3 oz BMI 19.4 BP 138/78 Blood Pressure Location Rt brachial Position Sitting Pulse 81 Pulse Source Pulse Oximeter Temp 97.3 F Temp Source Temporal Artery Scan Pulse Oximetry (%) 97 Oxygen Delivery Method Room Air Intake Visit Reasons: f/u BP Intake Note: Patient is here to follow up on BP. Complaint of left arm/shoulder pain Classification Inspector Required: No Departure Clerk: Not Required per policy Accompanied by: Self / Same As Patient Allergies Penicillins Allergy (Severe, Verified 01/06/25 14:14) Swelling Medication List - Last Reconciled 01/06/25 by Shani Gregorio PA-C aspirin 81 mg PO DAILY atorvastatin 40 mg PO BEDTIME blood pressure test kit-small As directed up to QID lisinopril 10 mg See Protocol PO DAILY metoprolol succinate ER (Toprol XL) 50 mg PO DAILY multivit with min-folic acid 120 mcg (Women's Multivitamin Gummies) 2 tabs PO DAILY nicotine 21 mg transdermal DAILY nicotine (polacrilex) 2 mg buccal Q2H PRN oxycodone-acetaminophen 5-325 mg (Percocet) 1 tab PO Q8H PRN Tobacco use date assessed: 01/06/25 Dental Screening Dental Screen Date: 11/25/24 HPI f/u BP HPI Details 59-year-old female with past medical his tory of CVA with carotid stenosis, tobacco abuse, hypercholesterolemia, hypertension, insomnia last seen 11/2024 coming in for blood pressure follow up. Presenting today for follow up. She also mentions right arm pain following an injury from a slamming metal door. The incident resulted in hyperextension- related pain that has persisted for several weeks, primarily when the arm is elevated. Conservative measures such as ice and heat have been tried without relief, and physical therapy is pending a physician's referral. Smoking cessation efforts are ongoing, with a reduction in cigarette use facilitated by nicotine gum. Her blood pressure is stable, and she reports no cardiovascular symptoms such as chest pain or dyspnea. Follow-up on overdue vascular ultrasound scheduling through vascular surgery was reviewed. Coordination with neurology for stroke monitoring and spinal concerns was reaffirmed, with plans to attend an upcoming appointment 01/11/2025. [facility] Medical History Ambulates with cane Closed left ankle fracture Weakness of left lower extremity Smoker HLD (hyperlipidemia) HTN (hypertension) History of cerebrovascular accident (~06/25/24) Surgical History No pertinent past surgical history Family History Father Mesothelioma Mother Breast cancer Social History Household Members: Family Household Members Other:: daughter Housing: House Are you a primary neonatal intensive care unit nurse to a significant other at home: No Do you presently have visiting nurse or other home services: No 75 years or older and lives alone: No Alcohol intake: current Alcohol intake frequency: a few times a month Patient Tobacco Use Status: Current everyday Tobacco user Tobacco use type: Cigarette Cigarettes Per Day: 4 Years Smoked: 40 e-Cigarette/Vaping Use: Never Used Second Hand Smoke Exposure: Yes service: No Cognitive needs: Yes (wheelchair ) Hearing needs: No Vision needs: Yes (glasses ) Questionnaire Thrive Questionnaire Date Thrive assessed: 11/25/24 ZOILA-7 AMB Questionnaire ZOILA-7 Date ZOILA - 7 assessed: 11/25/24 Source: Developed by Drs. Mikel Cali, Yael Martins, Adan Garcia and colleagues, with an educational manpreet from [employer]. Review of Systems Const Denies body aches, Denies chills, Denies fever(s), Denies headache(s) and Denies poor appetite Eyes Reports no additional complaints ENT Denies dysphagia, Denies dizziness, Denies headache(s) and Denies odynophagia Card Denies chest pain, Denies syncope, Denies edema, Denies irregular heart rhythm, Denies lightheadedness and Denies dyspnea Resp Denies cough and Denies dyspnea GI Denies abdominal pain, Denies constipation, Denies dysphagia, Denies diarrhea, Denies nausea, Denies odynophagia and Denies vomiting Reports no additional complaints Musc Reports no additional complaints and Denies abnormal gait Skin/Breast Reports system reviewed and no additional complaints, except as documented Neuro Denies abnormal gait, Denies dizziness, Denies syncope and Denies headache(s) Psych Reports no additional complaints Physical exam (Primary Care) Vital Signs: Last Vital Signs Temp 97.3 F 01/06/25 14:14 Pulse 81 01/06/25 14:14 BP 138/78 01/06/25 14:14 Pulse Ox 97 01/06/25 14:14 Oxygen Delivery Method Room Air 01/06/25 14:14 BMI result Body Mass Index 19.4 Tobacco/Smoking Status: Tobacco use Status Tobacco use date assessed 01/06/25 01/06/25 14:18 Patient Tobacco Use Status Current everyday Tobacco 01/06/25 14:18 Tobacco use type Cigarette 01/06/25 14:18 e-Cigarette/Vaping Use Never Used 01/06/25 14:18 Thrive Assessment: Date of Thrive Assessment Date Thrive assessed 11/25/24 01/06/25 14:18 Const General: cooperative, healthy appearing, comfortable and no acute distress Orientation/consciousness: patient oriented x3 HENMT Head: Yes normocephalic Ears: hearing grossly normal bilaterally General nose exam: Normal external nose present Eyes General: appearance normal, both eyes and all related structures Conjunctivae: conjunctivae normal Neck Neck: Yes full ROM and Yes no lymphadenopathy Resp Effort & Inspection: normal respiratory effort Auscultation: clear to auscultation bilaterally, no crackles, no rales, no rhonchi and no wheezes Cardio Rate: regular rate Rhythm: regular rhythm Skin General skin exam: no rashes or lesions noted Neuro General: patient oriented x3 Gait exam (Neuro): Normal gait present Extrem General: Yes normal to inspection, Yes full ROM and No edema Psych Affect: normal affect Attitude: cooperative Insight: Good insight present (Psych) Judgement: Good judgement present (Psych) Coding Level of Care Code Est Pt Level 3 (61951) Diagnoses Hypertension I10 Hypercholesterolemia E78.00 Tobacco abuse Z72.0 Stenosis of right carotid artery I65.21 Laterality: right CVA (cerebral vascular accident) I63.9 Left arm pain M79.602 Assessment & Plan Assessment & Plan (1) Hypertension: Code(s): I10 - Essential (primary) hypertension Category: Medical Plan: Continue on current blood pressure medication. Avoid salt intake and encourage healthy diet and regular exercise. (2) Hypercholesterolemia: Code(s): E78.00 - Pure hypercholesterolemia, unspecified Category: Medical Plan: Avoid foods that are high in cholesterol such as red meat, fried foods, eggs and baked goods. Triglyceride goal of less than 150 and LDL goal of less than 70. Continue on atorvastatin 40. Reminded patient about blood work (3) Tobacco abuse: Code(s): Z72.0 - Tobacco use Category: Medical Plan: Smoking cigarettes and the use of tobacco can be harmful. We discussed the importance of stopping and options to aid in smoking cessation. Has been using Nicorette gum and nicotine patches with good relief now down to 1-2 cigarettes daily from 1 and half packs daily. Continue with smoking cessation efforts (4) Carotid stenosis: Comment: 08/24/2024 - right carotid endarterectomy Code(s): I65.29 - Occlusion and stenosis of unspecified carotid artery Category: Medical Qualifiers: Laterality: right Qualified Code(s): I65.21 - Occlusion and stenosis of right carotid artery Plan: Patient has not yet had scheduled for ultrasound of the carotids despite Dr. Méndez wanting to have it scheduled for November. I reached out to the radiology department as well as Dr. Méndez's office for more information. (5) CVA (cerebral vascular accident): Code(s): I63.9 - Cerebral infarction, unspecified Category: Medical Plan: Continue to follow with Dr. Méndez in also has a appointment with Neurology coming up. (6) Left arm pain: Code(s): M79.602 - Pain in left arm Category: Medical Plan: Patient having left arm pain related to a hyperextension injury that happened several weeks ago. No tenderness to palpation over entirety of left shoulder or arm but does have weakness with lateral raise and extension of the left shoulder. Advised cyclobenzaprine to be used at bedtime and referral placed to physical therapy. Plan Patient was informed and verbally consented to the use of an ambient scribe for clinic note documentation during this visit. This note was constructed using voice recognition software. While every effort has been made to ensure accuracy and automatic drilling machine operator, still areas may have been included sometimes these areas may affect the content or meeting of the given symptoms. Total time spent caring for the patient today was 20 minutes. This includes time spent before the visit reviewing the chart, time spent during the visit, and time spent after the visit and documentation. Orders: Orders PT Evaluation and Treatment Today M79.602 - Pain in left arm Medications: New cyclobenzaprine 5 mg PO BEDTIME 10 tabs 0RF Refilled nicotine 21 mg transdermal DAILY 28 ea 0RF nicotine (polacrilex) 2 mg buccal Q2H PRN 50 ea 0RF Nicotine Cravings
[2025-01-06 14:14] VITALS: BP 138/78; PULSE 81; TEMP 36.3; O2SAT 97; BMI 19.4
== END 2025-01-06 15:02 | disposition home or self-care (01) ==
DX: I10 Essential (primary) hypertension (principal); E78.00 Pure hypercholesterolemia, unspecified; Z72.0 Tobacco use; I65.21 Occlusion and stenosis of right carotid artery; I63.9 Cerebral infarction, unspecified; M79.602 Pain in left arm

== ENCOUNTER → 2025-01-06 14:00 | Outpatient (BNVA) | payer OTHER, SELFPAY | DX: I10 Essential (primary) hypertension (principal); E78.00 Pure hypercholesterolemia, unspecified; I65.21 Occlusion and stenosis of right carotid artery; I63.9 Cerebral infarction, unspecified; M79.602 Pain in left arm; Z72.0 Tobacco use | CPT/HCPCS: 99212 ==

== ENCOUNTER 2025-01-13 14:44 | Outpatient (AMB) | payer OTHER, SELFPAY ==
[2025-01-13 15:08] VITALS: BP 128/68; PULSE 88; O2SAT 97; BMI 19.7
--- NOTE | 2025-01-13 15:08 | MHC.PC.OV ---
Vital Signs 01/13/25 15:08 Height 5 ft Weight 101 lb BMI 19.7 BP 128/68 Blood Pressure Location Lt brachial Position Sitting Pulse 88 Pulse Source Pulse Oximeter Pulse Oximetry (%) 97 Oxygen Delivery Method Room Air Intake Visit Reasons: Ear Cleaning Allergies Penicillins Allergy (Severe, Verified 01/13/25 15:08) Swelling Tobacco use date assessed: 01/06/25 Dental Screening Dental Screen Date: 11/25/24 HPI Ear Cleaning HPI Details 59-year-old female with past medical history of CVA with carotid stenosis, tobacco abuse, hypercholesterolemia, hypertension, insomnia last seen 12/2024 coming in for ear cleaning. Ear clogged feeling PFSH Medical History Ambulates with cane Closed left ankle fracture Weakness of left lower extremity Smoker HLD (hyperlipidemia) HTN (hypertension) History of cerebrovascular accident (~06/25/24) Surgical History No pertinent past surgical history Family History Father Mesothelioma Mother Breast cancer Social History Household Members: Family Household Members Other:: daughter Housing: House Are you a primary respiratory care specialist to a significant other at home: No Do you presently have visiting nurse or other home services: No 75 years or older and lives alone: No Alcohol intake: current Alcohol intake frequency: a few times a month Patient Tobacco Use Status: Current everyday Tobacco user Tobacco use type: Cigarette Cigarettes Per Day: 4 Years Smoked: 40 e-Cigarette/Vaping Use: Never Used Second Hand Smoke Exposure: Yes service: No Current occupational status: employed 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 1. Little interest or pleasure in doing things: not at all 2. Feeling down, depressed, or hopeless: not at all 3. Trouble falling or staying asleep, or sleeping too much: several days 4. Feeling tired or having little energy: several days 5. Poor appetite or overeating: several days 6. Feeling bad about yourself - or that you are a failure or have let yourself or your family down: not at all 7. Trouble concentrating on things, such as reading the newspaper or watching television: not at all 8. Moving or speaking so slowly that other people could have noticed. Or the opposite - being so fidgety or restless that you have been moving around a lot more than usual: not at all 9. Thoughts that you would be better off or of hurting yourself in some way: not at all Total score: 3 Depression Screening Interpretation: Positive Depression Screening Done: Yes 87806 - PHQ-9 Billing: Yes Source: Developed by Drs. Mikel Cali, Yael Martins, Adan Garcia and colleagues, with an educational manpreet from [employer]. Thrive Questionnaire Date Thrive assessed: 11/25/24 AUDIT C Alcohol Use Questionnaire (AUDIT-C) 1. How often do you have a drink containing alcohol?: Monthly or less 2. How many drinks containing alcohol do you have on a typical day when you are drinking?: 1 or 2 3. How often do you have six or more drinks on one occasion?: Never Total Score: 1 ZOILA-7 AMB Questionnaire ZOILA-7 Date ZOILA - 7 assessed: 11/25/24 Source: Developed by Drs. Mikel Cali, Yael Martins, Adan Garcia and colleagues, with an educational manpreet from [employer]. Review of Systems Const Reports no additional complaints Eyes Reports no additional complaints ENT Details: Ear clogged feeling and decreased hearing in the right side Physical exam (Primary Care) Vital Signs: Last Vital Signs Pulse 88 01/13/25 15:08 BP 128/68 01/13/25 15:08 Pulse Ox 97 01/13/25 15:08 Oxygen Delivery Method Room Air 01/13/25 15:08 BMI result Body Mass Index 19.7 Tobacco/Smoking Status: Tobacco use Status Tobacco use date assessed 01/06/25 01/13/25 15:14 Patient Tobacco Use Status Current everyday Tobacco 01/13/25 15:14 Tobacco use type Cigarette 01/13/25 15:14 e-Cigarette/Vaping Use Never Used 01/13/25 15:14 PHQ-9: PHQ-9 Score PHQ-9: Total score 3 01/13/25 15:14 Depression Screening Interpretation: Positive Thrive Assessment: Date of Thrive Assessment Date Thrive assessed 11/25/24 01/13/25 15:14 Const General: cooperative, healthy appearing, comfortable and no acute distress Orientation/consciousness: patient oriented x3 HENMT Head: Yes normocephalic Ears: hearing grossly normal bilaterally and Abnormal EAC present cerumen impaction on the right and excessive cerumen on the left General nose exam: Normal external nose present Eyes General: appearance normal, both eyes and all related structures Conjunctivae: conjunctivae normal Resp Effort & Inspection: normal respiratory effort Cardio Rate: regular rate Neuro General: patient oriented x3 Gait exam (Neuro): Normal gait present Psych Affect: normal affect Attitude: cooperative Insight: Good insight present (Psych) Judgement: Good judgement present (Psych) Office Procedures Cerumen Removal From which ear canal was the cerumen removed: bilateral Removal: irrigation and cerumen loop/spoon Notes: patient tolerated procedure well and no complications [id number]-[id number] Irrigation/Lavage Coding Level of Care Code Procedure Only Diagnoses Impacted cerumen of both ears H61.23 CPT Codes Office Procedure - CPT: 30873-Cuo Irrigation/Lavage ([id number]) Additional Codes PHQ-9 - 30567 - PHQ-9 Billing: Yes ([id number]) Assessment & Plan Assessment & Plan (1) Impacted cerumen of both ears: Code(s): H61.23 - Impacted cerumen, bilateral Category: Medical Plan: Cerumen was successfully removed from the left ear using lighted curette. A large amount of wax was removed from the right ear using lighted curette and irrigation however not all cerumen was able to be removed. Patient became dizzy and ear canal looked irritated so irrigation was stopped. Remaining wax is deep into the canal likely pressed up against the eardrum and dark brown suggesting hard wax. Advised patient to use Debrox drops nightly for 1 week and follow up as needed. Left TM visualized as intact with well aerated middle ear spaces. Right TM unable to be visualized Plan This note was constructed using voice recognition software. While every effort has been made to ensure accuracy and printed circuit boards stripper etcher, still areas may have been included sometimes these areas may affect the content or meeting of the given symptoms. Total time spent caring for the patient today was 20 minutes. This includes time spent before the visit reviewing the chart, time spent during the visit, and time spent after the visit and documentation.
== END 2025-01-13 15:44 | disposition home or self-care (01) ==
DX: H61.23 Impacted cerumen, bilateral (principal)

== ENCOUNTER → 2025-01-13 14:44 | Outpatient (BNVA) | payer OTHER, SELFPAY | DX: H61.23 Impacted cerumen, bilateral (principal) | CPT/HCPCS: 69210; 96127; 99212 ==

== ENCOUNTER 2025-01-20 09:42 | Outpatient (RCR) | payer OTHER, SELFPAY ==
--- NOTE | 2024-12-25 09:57 | MHC.PT.EP ---
[facility] [place] Office [place] Office [place] Office [address] Zac Peña [address] [phone] F: [phone] F: [phone] F: [phone] F: [phone] Physical Therapy Plan of Care Date of Evaluation: 12/25/24 Date of Surgery: Diagnosis: fracture of upper and lower end of L fibula (RL) Assessment: pt is a 59 y/o female presenting to physical therapy w/ referring diagnosis of fracture of upper and lower end of L fibula. Impairments include pain, decreased range of motion, decreased strength, impaired functional mobility, impaired postural awareness, and altered ambulation mechanics. pt is a good candidate for skilled PT due to age, potential remediation of impairments, typical disease/condition progression and prognosis, comorbidities, and motivation. pt would benefit from skilled PT intervention to provide a tailored strengthening and stretching exercise program, functional training, gait training, postural re-training, neuromuscular re-education, modalities as needed for pain, equipment safety demonstration. Frequency and Duration: The patient will be seen 2x/wk for 4 wks Short Term Goals: pt will be I w/ HEP to promote self-management of condition. pt will improve L knee flexion and L ankle DF by 1 MMT grade to reduce toe dragging during ambulation. Butcher Apprentice Goals: pt will ascend/descend 6 stairs while holding 5# object to promote ease in carrying groceries into home. Treatment Plan: Modalities to reduce pain, spasms and effusion. Manual therapy to restore motion and function. Therapeutic exercise to improve strength and flexibility. Neuromuscular re-education for posture and balance. Therapeutic activities to return to functional activities of daily living. Electronically signed by: Emmie William PT, DPT Please sign and return to therapist. Thank you for your referral.
--- NOTE | 2025-02-12 10:34 | MHC.PT.DC ---
[facility] [place] [facility] [place] [facility] [place] Office [address] Zac Peña [address] [facility] [phone] F: [phone] F: [phone] F: [phone] F: [phone] Physical Therapy Discharge Report Diagnosis: fracture of upper and lower end of L fibula (RL) Date of Surgery: Date of Evaluation: 12/25/24 Date of Discharge: 02/12/25 Treatments to Date: 9 Cancellations to Date: 0 No Shows to Date: 0 Discharge Status: Improved Function Patient Elected to Stop Discharge Summary: The patient overall has been making improvements regarding her functional mobility and balance. She has been making improvements towards achieving her goals which she achieved all but partially one short term goal. Her biggest limitation at this time is her proprioceptive awareness of her left lower extremity in space. The patient has difficulty knowing if her feet are planted and symmetrical. The patient is able to ascend/descend stairs with reciprocal pattern but often catches her heel due to, again, poor proprioception. She was recommended to continue with physical therapy; however, never scheduled any additional follow-ups. She is discharged from this physical therapy plan of care. Electronically signed by: Emmie William PT, DPT Please sign and return to therapist. Thank you for your referral.
== END 2025-02-12 10:34 | disposition home or self-care (01) ==
LOC: HO.PT 09:42
DX: S82.832D Other fracture of upper and lower end of left fibula, subsequent encounter for closed fracture with routine healing (principal)
CPT/HCPCS: 97110; 97112; 97162; 97164; 97530

== ENCOUNTER 2025-04-27 09:44 | Outpatient (AMB) | payer OTHER, SELFPAY ==
--- NOTE | 2025-04-27 09:49 | MHC.PC.OV ---
Vital Signs 04/27/25 09:52 Height 5 ft Weight 98 lb 8 oz BMI 19.2 BP 110/60 Blood Pressure Location Lt brachial Position Sitting Pulse 84 Pulse Source Pulse Oximeter Temp 97.1 F Temp Source Temporal Artery Scan Pulse Oximetry (%) 99 Oxygen Delivery Method Room Air Intake Visit Reasons: 3 Month F/U Intake Note: Patient is here to follow up on HTN, Hypercholesterlemia. Parts Identification Technician Required: No Railroad Shop Inspector: Not Required per policy Accompanied by: Self / Same As Patient Allergies Penicillins Allergy (Severe, Verified 04/27/25 09:57) Swelling nicotine Allergy (Intermediate, Verified 04/27/25 09:57) Rash Medication List - Last Reconciled 04/27/25 by Shani Gregorio PA-C aspirin 81 mg PO DAILY atorvastatin 40 mg PO BEDTIME blood pressure test kit-small As directed up to QID cyclobenzaprine 5 mg PO BEDTIME lisinopril 10 mg See Protocol PO DAILY metoprolol succinate ER (Toprol XL) 50 mg PO DAILY multivit with min-folic acid 120 mcg (Women's Multivitamin Gummies) 2 tabs PO DAILY nicotine (polacrilex) 2 mg buccal Q2H PRN Tobacco use date assessed: 04/27/25 Dental Screening Dental Screen Date: 11/25/24 HPI 3 Month F/U HPI Details 59-year-old female with past medical history of CVA with carotid stenosis, tobacco abuse, hypercholesterolemia, hypertension, insomnia last seen 12/2024 coming in for follow up. Presenting with multiple chronic conditions including carotid artery disease, musculoskeletal soreness, and smoking cessation. Follow-up within the neurologist's consultation addressed the carotid artery surgery, which the patient claims to have completed she was advised to follow up in 1 year. Musculoskeletal soreness occurs in both the left and right upper arms, predominantly at night. This soreness was initially noted in the left arm post-hyperextension, subsequently involving both arms and attributed to her sleep position. And muscle soreness typically resolves within about a half an hour after waking up. Smoking persists at a rate of a pack every four days, with stress-related increases in consumption during tax season. Nicotine patches were tried, but discontinued due to adverse skin reactions, while gum continues to be utilized. Chronic weakness in the left leg persists, impacting her descent on stairs, but no pain is reported. [facility] Medical History Ambulates with cane Closed left ankle fracture Weakness of left lower extremity Smoker HLD (hyperlipidemia) HTN (hypertension) History of cerebrovascular accident (~06/25/24) Surgical History No pertinent past surgical history Family History Father Mesothelioma Mother Breast cancer Social History Household Members: Family Household Members Other:: daughter Housing: House Are you a primary personal care assistant to a significant other at home: No Do you presently have visiting nurse or other home services: No 75 years or older and lives alone: No Alcohol intake: current Alcohol intake frequency: a few times a month Patient Tobacco Use Status: Current everyday Tobacco user Tobacco use type: Cigarette Cigarette Packs Per Day: 0.25 Cigarettes Per Day: 4 Years Smoked: 40 e-Cigarette/Vaping Use: Never Used Second Hand Smoke Exposure: Yes service: No Current occupational status: employed 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 1. Little interest or pleasure in doing things: not at all 2. Feeling down, depressed, or hopeless: several days 3. Trouble falling or staying asleep, or sleeping too much: several days 4. Feeling tired or having little energy: several days 5. Poor appetite or overeating: not at all 6. Feeling bad about yourself - or that you are a failure or have let yourself or your family down: not at all 7. Trouble concentrating on things, such as reading the newspaper or watching television: not at all 8. Moving or speaking so slowly that other people could have noticed. Or the opposite - being so fidgety or restless that you have been moving around a lot more than usual: not at all 9. Thoughts that you would be better off or of hurting yourself in some way: not at all Total score: 3 Depression Screening Interpretation: Negative Depression Screening Done: Yes Source: Developed by Drs. Mikel Cali, Yael Martins, Adan Garcia and colleagues, with an educational manpreet from [employer]. Thrive Questionnaire Date Thrive assessed: 04/20/25 I am a: Patient What is your living situation today?: I have a steady place to live Within the past 12 months, did the food you bought not last and you didn't have the money to get more?: Never true Within the past 12 months, did you worry whether your food would run out before you got money to buy more?: Never true Do you have trouble paying for medicines?: No Do you have trouble getting transportation to medical appointments?: No Do you have trouble paying your heating and electricity bill?: No Do you have trouble taking care of your child, family member or friend?: No Do you have trouble with day-to-day activities such as bathing, preparing meals, shopping, managing finances, etc.?: No Are you currently unemployed and looking for a job?: No Are you interested in more education?: No Please select the resources that you would like help with: None Currently or been in a relationship where the following occur: No concerns reported THRIVE Score: 0 AUDIT C Alcohol Use Questionnaire (AUDIT-C) 1. How often do you have a drink containing alcohol?: Monthly or less Total Score: 1 ZOILA-7 AMB Questionnaire ZOILA-7 Date ZOILA - 7 assessed: 04/27/25 Feeling nervous, anxious, or on edge: 1 = Several days Not being able to stop or control worryin = Several days Worrying too much about different things: 1 = Several days Trouble relaxin = Not at all Being so restless that it is hard to sit still: 0 = Not at all Becoming easily annoyed or irritable: 0 = Not at all Feeling afraid as if something awful might happen: 0 = Not at all Total ZOILA-7 score (0-4 normal; 5-9 mild; 10-14 moderate; 15-21 severe): 3 Source: Developed by Yael Webb Kurt Kroenke and colleagues, with an educational manpreet from [employer]. Review of Systems Const Denies body aches, Denies chills, Denies fever(s), Denies headache(s) and Denies poor appetite Eyes Reports no additional complaints ENT Denies dysphagia, Denies dizziness, Denies headache(s) and Denies odynophagia Card Denies chest pain, Denies syncope, Denies edema, Denies irregular heart rhythm, Denies lightheadedness and Denies dyspnea Resp Denies cough and Denies dyspnea GI Denies abdominal pain, Denies constipation, Denies dysphagia, Denies diarrhea, Denies nausea, Denies odynophagia and Denies vomiting Reports no additional complaints Musc Reports no additional complaints and Denies abnormal gait Skin/Breast Reports system reviewed and no additional complaints, except as documented Neuro Denies abnormal gait, Denies dizziness, Denies syncope and Denies headache(s) Psych Reports no additional complaints Physical exam (Primary Care) Vital Signs: Last Vital Signs Temp 97.1 F 04/27/25 09:52 Oxygen Delivery Method Room Air 04/27/25 09:52 BMI result Body Mass Index 19.2 Tobacco/Smoking Status: Tobacco use Status Tobacco use date assessed 01/06/25 01/13/25 15:14 Patient Tobacco Use Status Current everyday Tobacco 01/13/25 15:14 Tobacco use type Cigarette 01/13/25 15:14 e-Cigarette/Vaping Use Never Used 01/13/25 15:14 Depression Screening Interpretation: Negative Thrive Assessment: Date of Thrive Assessment Date Thrive assessed 04/20/25 04/20/25 12:39 Currently or been in a relationship where the following occur: No concerns reported Const General: cooperative, healthy appearing, comfortable and no acute distress Orientation/consciousness: patient oriented x3 HENME Head: Yes normocephalic Ears: hearing grossly normal bilaterally General nose exam: Normal external nose present Eyes General: appearance normal, both eyes and all related structures Conjunctivae: conjunctivae normal Neck Neck: Yes full ROM and Yes no lymphadenopathy Resp Effort & Inspection: normal respiratory effort Auscultation: clear to auscultation bilaterally, no crackles, no rales, no rhonchi and no wheezes Cardio Rate: regular rate Rhythm: regular rhythm Skin General skin exam: no rashes or lesions noted Neuro General: patient oriented x3 Gait exam (Neuro): Normal gait present Extrem General: Yes normal to inspection, Yes full ROM and No edema Psych Affect: normal affect Attitude: cooperative Insight: Good insight present (Psych) Judgement: Good judgement present (Psych) Coding Level of Care Code Est Pt Level 3 (55492) Diagnoses Hypertension I10 Hypercholesterolemia E78.00 Tobacco abuse Z72.0 Stenosis of right carotid artery I65.21 Laterality: right CVA (cerebral vascular accident) I63.9 Left arm pain M79.602 Fatigue R53.83 Weakness of left lower extremity R29.898 Assessment & Plan Assessment & Plan (1) Hypertension: Code(s): I10 - Essential (primary) hypertension Category: Medical Plan: Continue on current blood pressure medication. Avoid salt intake and encourage healthy diet and regular exercise. (2) Hypercholesterolemia: Code(s): E78.00 - Pure hypercholesterolemia, unspecified Category: Medical Plan: Avoid foods that are high in cholesterol such as red meat, fried foods, eggs and baked goods. Triglyceride goal of less than 150 and LDL goal of less than 70. Continue on atorvastatin 40. Reminded patient about blood work (3) Tobacco abuse: Code(s): Z72.0 - Tobacco use Category: Medical Plan: Smoking cigarettes and the use of tobacco can be harmful. We discussed the importance of stopping and options to aid in smoking cessation. Has been using Nicorette gum continuing to cut down. (4) Carotid stenosis: Comment: 08/24/2024 - right carotid endarterectomy Code(s): I65.29 - Occlusion and stenosis of unspecified carotid artery Category: Medical Qualifiers: Laterality: right Qualified Code(s): I65.21 - Occlusion and stenosis of right carotid artery Plan: Patient has not yet had scheduled for ultrasound of the carotids despite Dr. Méndez wanting to have it scheduled for November. Reminded patient to reschedule appt and US. (5) CVA (cerebral vascular accident): Code(s): I63.9 - Cerebral infarction, unspecified Category: Medical Plan: Patient was recently seen by neurologist and advised to follow up in 1 year. I did remind the patient once again to have her carotid ultrasound completed and follow up with vascular surgeon for further management. I also reminded the patient once again about her blood work as she has not yet had this completed. I discussed with patient the biggest risk factors for recurrence of stroke include smoking, elevated cholesterol, elevated blood pressure and elevated blood sugars. Without having blood work done we can not manage some of these chronic conditions. Patient understands the risks and agrees to have blood work and imaging scheduled in the next few weeks. (6) Left arm pain: Code(s): M79.602 - Pain in left arm Category: Medical Plan: Did not undergo PT and feels her symptoms have improved at this time. She does wake up with some mild pain in bilateral arms only when sleeping and typically resolves after waking up in the morning. Continue with tylenol prn and cyclobenzaprine as needed for pain. (7) Fatigue: Code(s): R53.83 - Other fatigue Category: Medical Plan: Patient reporting generalized fatigue which may be cause from the frequent awakenings due to bilateral shoulder pain. She is declining sleep study at this time plan to order blood work for further evaluation. (8) Weakness of left lower extremity: Code(s): R29.898 - Other symptoms and signs involving the musculoskeletal system Category: Medical Plan: Patient having continued weakness of left lower extremity s/p CVA requesting additional physical therapy. Referral was placed today. Plan We will proceed with rescheduling and completing the carotid ultrasound and follow-up with the vascular surgeon to better assess the carotid artery disease. The patient will consider physical therapy if musculoskeletal soreness persists, particularly given the nocturnal pattern and response to positional changes. Smoking cessation strategies will continue, focusing on nicotine replacement alternatives to which the patient may not react adversely. Blood work is essential to rule out any hematological causes of the patient's persistent fatigue, and exploration of physical therapy for her chronic left leg weakness will continue, providing further assistance as needed. Patient was informed and verbally consented to the use of an ambient scribe for clinic note documentation during this visit. This note was constructed using voice recognition software. While every effort has been made to ensure accuracy and data management, still areas may have been included sometimes these areas may affect the content or meeting of the given symptoms. Total time spent caring for the patient today was 20 minutes. This includes time spent before the visit reviewing the chart, time spent during the visit, and time spent after the visit and documentation. Orders: Orders Comprehensive Met. Panel Today R53.83 - Other fatigue, Z00.00 - Encounter for general adult medical examination without abnormal findings Complete Blood Count Auto Diff Today R53.83 - Other fatigue, Z00.00 - Encounter for general adult medical examination without abnormal findings Vitamin D 25-OH Total Today R53.83 - Other fatigue, Z00.00 - Encounter for general adult medical examination without abnormal findings PT Evaluation and Treatment Today I63.9 - Cerebral infarction, unspecified, R29.898 - Other symptoms and signs involving the musculoskeletal system TSH reflex Free T4 Today R53.83 - Other fatigue, Z00.00 - Encounter for general adult medical examination without abnormal findings IRON PROFILE Today R53.83 - Other fatigue Medications: Refilled nicotine (polacrilex) 2 mg buccal Q2H PRN 100 gums 0RF for nicotine cravings
[2025-04-27 09:52] VITALS: BP 110/60; PULSE 84; TEMP 36.2; O2SAT 99; BMI 19.2
== END 2025-04-27 10:36 | disposition home or self-care (01) ==
LOC: HO.HMCH 09:45
DX: I10 Essential (primary) hypertension (principal); E78.00 Pure hypercholesterolemia, unspecified; I63.9 Cerebral infarction, unspecified; Z72.0 Tobacco use; I65.21 Occlusion and stenosis of right carotid artery; M79.602 Pain in left arm; R53.83 Other fatigue; R29.898 Other symptoms and signs involving the musculoskeletal system

== ENCOUNTER → 2025-04-27 09:44 | Outpatient (BNVA) | payer OTHER, SELFPAY | DX: I10 Essential (primary) hypertension (principal); E78.00 Pure hypercholesterolemia, unspecified; F17.210 Nicotine dependence, cigarettes, uncomplicated; I65.21 Occlusion and stenosis of right carotid artery; M79.602 Pain in left arm; R53.83 Other fatigue; R29.898 Other symptoms and signs involving the musculoskeletal system; Z86.73 Personal history of transient ischemic attack (TIA), and cerebral infarction without residual deficits | CPT/HCPCS: 99212 ==

== ENCOUNTER 2025-07-12 11:13 | Outpatient (AMB) | payer OTHER, SELFPAY ==
--- NOTE | 2025-07-12 11:16 | A.OFFVIS_ITS ---
Intake Visit Reasons: 6M Allergies Penicillins Allergy (Severe, Verified 04/27/25 09:57) Swelling nicotine Allergy (Intermediate, Verified 04/27/25 09:57) Rash Medication List - Last Reconciled 07/12/25 by Braulio Charles MD aspirin 81 mg PO DAILY atorvastatin 40 mg PO BEDTIME blood pressure test kit-small As directed up to QID cyclobenzaprine 5 mg PO BEDTIME lisinopril 10 mg See Protocol PO DAILY metoprolol succinate ER (Toprol XL) 50 mg PO DAILY multivit with min-folic acid 120 mcg (Women's Multivitamin Gummies) 2 tabs PO DAILY nicotine (polacrilex) 2 mg buccal Q2H PRN HPI Comments Details: 60 years old woman 60 years old woman who had not seen a doctor for number of years came to [facility] in June of 2025 with new onset of left-sided weakness. MRI of brain revealed patchy area of acute ischemic infarction in right upper division middle cerebral artery territory. This was associated with critical right extracranial internal carotid artery stenosis. She had right carotid endarterectomy. She also had an MRI of cervical spine that revealed moderate to severe spondylitic mid cervical stenosis with flattening of cervical cord but no myelomalacia. She was here after right carotid endarterectomy and recent cerebrovascular event management. In June 2025, she suffered a right middle cerebral artery stroke linked to critical right extracranial carotid artery stenosis. This vascular issue was surgically addressed with an endarterectomy without complications. Despite the intervention, she continues to have mild impairment in her left leg. Subtle deficits remain but are described as minor, enabling the patient to be mobile. She is on a regimen of low-dose aspirin following the procedure. Apart from these conditions, there is mention of severe cervical spinal stenosis; lyon osvaldo, it is not causing any myelopathy symptoms. A 2 mm cerebral aneurysm is noted, which is currently under surveillance due to its small size. [facility] Medical History (Updated 07/12/25 @ 11:55 by Braulio Charles MD) Cerebral infarction Ambulates with cane Closed left ankle fracture Weakness of left lower extremity Smoker HLD (hyperlipidemia) HTN (hypertension) History of cerebrovascular accident (~06/25/24) Surgical History No pertinent past surgical history Family History Father Mesothelioma Mother Breast cancer Social History Household Members: Family Household Members Other:: daughter Housing: House Are you a primary child care nurse to a significant other at home: No Do you presently have visiting nurse or other home services: No 75 years or older and lives alone: No Alcohol intake: current Alcohol intake frequency: a few times a month Patient Tobacco Use Status: Current everyday Tobacco user Tobacco use type: Cigarette Cigarette Packs Per Day: 0.25 Cigarettes Per Day: 4 Years Smoked: 40 e-Cigarette/Vaping Use: Never Used Second Hand Smoke Exposure: Yes service: No Current occupational status: employed 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 Denies major sensory disturbances or significant mobility issues. - Musculoskeletal: Reports history of ankle fracture. - Cardiovascular: Denies further cerebrovascular incidents post-procedure. - General: Reports overall good postoperative recovery. Physical Exam Neuro Other: Mental Status: Alert and oriented to person, place, and time. Normal attention. Normal spontaneous speech, fluency, and comprehension. Cranial Nerves: CN II: Visual kennedy full to confrontation, visual acuity intact. CN III, IV, : Pupils equal, round, reactive to light and accommodation. Extraocular movements are normal. CN V: Facial sensation is normal. CN VII: Facial movements symmetrical. CN VIII: Hearing intact to bedside conversation is normal. CN IX, X: Palate elevates symmetrically. CN XI: Shoulder shrug and head turn symmetrical. CN XII: Tongue midline without atrophy or fasciculations. Motor: Deep tendon reflexes are brisk in left leg. Gait and Station: No obvious gait abnormality. No ataxia or instability. Extrapyramidal: Full facial expressions and blinking. No rigidity. Movements are appropriate with no tremor or abnormality. Speech: Normal; no dysarthria or tremor. Assessment & Plan Assessment & Plan (1) Middle cerebral artery embolism: Code(s): I66.09 - Occlusion and stenosis of unspecified middle cerebral artery Category: Medical Qualifiers: Laterality: right Qualified Code(s): I66.01 - Occlusion and stenosis of right middle cerebral artery (2) Carotid stenosis, right: Code(s): I65.21 - Occlusion and stenosis of right carotid artery Category: Medical (3) Cervical spondylarthritis: Code(s): M47.812 - Spondylosis without myelopathy or radiculopathy, cervical region Category: Medical Qualifiers: Spinal osteoarthritis complication: without myelopathy or radiculopathy Qualified Code(s): M47.812 - Spondylosis without myelopathy or radiculopathy, cervical region (4) Cerebral aneurysm: Code(s): I67.1 - Cerebral aneurysm, nonruptured Category: Medical Plan Impression 1. Patchy area of right middle cerebral artery upper division acute ischemic infarct in June of 2025 associated with critical right internal carotid artery extracranial stenosis, status post carotid endarterectomy without complications. She continues to have mild difficulty with left leg. 2. Moderately severe spondylitic mid cervical stenosis without indication of myelomalacia. 3. Left Acom area 2mm possible aneurysm Recommendations: 1. Continue aspirin 81 mg daily 2. Continue statin and 3. Continue blood pressure control and 4. As far as left leg difficulty is concerned, she is advised to continue to use it for example by having a daily walking regimen. 5. Repeat CTA for aneurysm f/u in a year Coding Level of Care Code Est Pt Level 5 (04401) Diagnoses Embolism of right middle cerebral artery I66.01 Laterality: right Carotid stenosis, right I65.21 Spondylosis of cervical region without myelopathy or radiculopathy M47.812 Spinal osteoarthritis complication: without myelopathy or radiculopathy Cerebral aneurysm I67.1
== END 2025-07-12 11:32 | disposition home or self-care (01) ==
LOC: HO.HSM 11:14
PROVIDERS: Visit Provider Psychiatry & Neurology Neurology
DX: I66.01 Occlusion and stenosis of right middle cerebral artery (principal); I65.21 Occlusion and stenosis of right carotid artery; M47.812 Spondylosis without myelopathy or radiculopathy, cervical region; I67.1 Cerebral aneurysm, nonruptured
CPT/HCPCS: 99214

== ENCOUNTER → 2025-07-12 11:13 | Outpatient (BNVA) | payer OTHER, SELFPAY | PROVIDERS: Visit Provider Psychiatry & Neurology Neurology | DX: I66.01 Occlusion and stenosis of right middle cerebral artery (principal); M47.812 Spondylosis without myelopathy or radiculopathy, cervical region; I67.1 Cerebral aneurysm, nonruptured; I65.21 Occlusion and stenosis of right carotid artery | CPT/HCPCS: 99212 ==

== ENCOUNTER 2025-07-28 13:17 | Outpatient (AMB) | payer OTHER, SELFPAY ==
--- NOTE | 2025-07-28 13:25 | MHC.PC.OV ---
Vital Signs 07/28/25 13:27 Height 5 ft Weight 96 lb 2 oz BMI 18.8 BP 110/72 Blood Pressure Location Lt brachial Position Sitting Pulse 91 Pulse Source Pulse Oximeter Pulse Oximetry (%) 96 Oxygen Delivery Method Room Air Intake Visit Reasons: ANNUAL Resourcing Advisor Required: No Accompanied by: Self / Same As Patient Allergies Penicillins Allergy (Severe, Verified 07/28/25 13:41) Swelling nicotine Allergy (Intermediate, Verified 07/28/25 13:41) Rash Medication List - Last Reconciled 07/28/25 by Shani Gregorio PA-C aspirin 81 mg PO DAILY atorvastatin 40 mg PO BEDTIME blood pressure test kit-small As directed up to QID cyclobenzaprine 5 mg PO BEDTIME lisinopril 10 mg See Protocol PO DAILY metoprolol succinate ER (Toprol XL) 50 mg PO DAILY multivit with min-folic acid 120 mcg (Women's Multivitamin Gummies) 2 tabs PO DAILY nicotine (polacrilex) 2 mg buccal Q2H PRN Tobacco use date assessed: 07/28/25 Dental Screening Dental Screen Date: 07/28/25 Did you have a dental visit in the last 12 months?: Yes Did you have a dental problem in the last 6 months where you did not have access to dental care?: No Was dental information given to patient?: Patient has dentist HPI ANNUAL HPI Details 60-year-old female with past medical history of CVA with carotid stenosis, tobacco abuse, hypercholesterolemia, hypertension, insomnia last seen 04/2025 coming in for annual exam. In review of the notes, patient was seen by Neurology 06/2025 advised to continue on aspirin, statin and blood pressure control and recommended for repeat CTA in 1 year. Presenting for an annual wellness visit. The patient continues to smoke cigarettes and has experienced difficulty using nicotine patches due to skin irritation. She has not used nicotine gum recently but plans to resume with a new prescription.The patient has a known aneurysm that was discussed with her neurologist. It is currently stable and does not require intervention until it reaches a larger size. The patient reports frequent awakenings at night, primarily due to discomfort and stress. She denies waking up due to respiratory issues or night sweats. Trazodone has been prescribed to help with sleep, starting at a low dose to assess tolerance. The patient has not yet completed her mammogram or colon cancer screening with Cologuard. Orders for these screenings have been renewed. She is also due for a tetanus and pertussis vaccination, which is recommended due to her upcoming visit to see her grandchild. Mammogram: reminded about mammo - new order placed Eye exam: appt in November Pap smear: declined today Colonoscopy: reminded about Cologuard vaccines: TDaP given today [facility] Medical History Cerebral infarction Ambulates with cane Closed left ankle fracture Weakness of left lower extremity Smoker HLD (hyperlipidemia) HTN (hypertension) History of cerebrovascular accident (~06/25/24) Surgical History No pertinent past surgical history Family History Father Mesothelioma Mother Breast cancer Social History Household Members: Family Household Members Other:: daughter Housing: House Are you a primary behavioral health care manager to a significant other at home: No Do you presently have visiting nurse or other home services: No 75 years or older and lives alone: No Alcohol intake: current Alcohol intake frequency: a few times a month Patient Tobacco Use Status: Current everyday Tobacco user Tobacco use type: Cigarette Cigarette Packs Per Day: 0.25 Cigarettes Per Day: 4 Years Smoked: 40 e-Cigarette/Vaping Use: Never Used Second Hand Smoke Exposure: Yes service: No Current occupational status: employed 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 1. Little interest or pleasure in doing things: not at all 2. Feeling down, depressed, or hopeless: several days 3. Trouble falling or staying asleep, or sleeping too much: several days 4. Feeling tired or having little energy: several days 5. Poor appetite or overeating: not at all 6. Feeling bad about yourself - or that you are a failure or have let yourself or your family down: not at all 7. Trouble concentrating on things, such as reading the newspaper or watching television: not at all 8. Moving or speaking so slowly that other people could have noticed. Or the opposite - being so fidgety or restless that you have been moving around a lot more than usual: not at all 9. Thoughts that you would be better off or of hurting yourself in some way: not at all Total score: 3 Depression Screening Interpretation: Negative Depression Screening Done: Yes 31348 - PHQ-9 Billing: Yes Source: Developed by Drs. Mikel Cali, Yael Martins, Adan Garcia and colleagues, with an educational manpreet from [employer]. Thrive Questionnaire Date Thrive assessed: 07/28/25 I am a: Patient What is your living situation today?: I have a steady place to live Within the past 12 months, did the food you bought not last and you didn't have the money to get more?: Never true Within the past 12 months, did you worry whether your food would run out before you got money to buy more?: Never true Do you have trouble paying for medicines?: No Do you have trouble getting transportation to medical appointments?: No Do you have trouble paying your heating and electricity bill?: No Do you have trouble taking care of your child, family member or friend?: No Do you have trouble with day-to-day activities such as bathing, preparing meals, shopping, managing finances, etc.?: No Are you currently unemployed and looking for a job?: No Are you interested in more education?: No Please select the resources that you would like help with: None Currently or been in a relationship where the following occur: No concerns reported THRIVE Score: 0 AUDIT C Alcohol Use Questionnaire (AUDIT-C) 1. How often do you have a drink containing alcohol?: Monthly or less Total Score: 1 ZOILA-7 AMB Questionnaire ZOILA-7 Date ZOILA - 7 assessed: 07/28/25 Feeling nervous, anxious, or on edge: 1 = Several days Not being able to stop or control worryin = Several days Worrying too much about different things: 1 = Several days Trouble relaxin = Not at all Being so restless that it is hard to sit still: 0 = Not at all Becoming easily annoyed or irritable: 0 = Not at all Feeling afraid as if something awful might happen: 0 = Not at all Total ZOILA-7 score (0-4 normal; 5-9 mild; 10-14 moderate; 15-21 severe): 3 Source: Developed by Drs. Mikel Cali, Yael Martins, Adan Garcia and colleagues, with an educational manpreet from [employer]. Review of Systems Const Denies body aches, Denies fatigue, Denies fever(s), Denies frequent falls, Denies headache(s) and Denies weakness Eyes Reports no additional complaints and Denies change in vision ENT Denies dysphagia, Denies dizziness, Denies facial pain, Denies headache(s), Denies nasal congestion and Denies odynophagia Card Denies chest pain, Denies syncope, Denies irregular heart rhythm, Denies leg edema, Denies lightheadedness and Denies dyspnea Resp Denies cough and Denies dyspnea GI Denies constipation, Denies dysphagia, Denies dyspepsia, Denies diarrhea, Denies nausea, Denies odynophagia and Denies vomiting Denies urinary frequency, Denies dysuria, Denies urinary hesitancy and Denies urinary urgency Musc Denies back pain and Denies myalgias Skin/Breast Reports system reviewed and no additional complaints, except as documented Neuro Denies dizziness, Denies syncope, Denies frequent falls, Denies headache(s) and Denies weakness Psych Reports no additional complaints Endo Denies fatigue Physical exam (Primary Care) Vital Signs: Last Vital Signs Pulse 91 07/28/25 13:27 BP 110/72 07/28/25 13:27 Pulse Ox 96 07/28/25 13:27 Oxygen Delivery Method Room Air 07/28/25 13:27 BMI result Body Mass Index 18.8 Tobacco/Smoking Status: Tobacco use Status Tobacco use date assessed 07/28/25 07/28/25 13:32 Patient Tobacco Use Status Current everyday Tobacco 07/28/25 13:32 Tobacco use type Cigarette 07/28/25 13:32 e-Cigarette/Vaping Use Never Used 07/28/25 13:32 PHQ-9: PHQ-9 Score PHQ-9: Total score 3 07/28/25 14:09 Depression Screening Interpretation: Negative Thrive Assessment: Date of Thrive Assessment Date Thrive assessed 07/28/25 07/28/25 13:32 Currently or been in a relationship where the following occur: No concerns reported Const General: cooperative, healthy appearing, comfortable and no acute distress Orientation/consciousness: patient oriented x3 HENMT Head: Yes normocephalic Ears: hearing grossly normal bilaterally, external ears normal, TM's normal bilaterally and EAC's normal General nose exam: Normal external nose present Face and sinus: Yes normal facial exam and Yes sinuses nontender Mouth: Normal oral and palatal mucosa present and tongue normal Throat: Yes posterior oropharynx normal Eyes General: appearance normal, both eyes and all related structures Conjunctivae: conjunctivae normal Pupils: Equal, round and reactive pupils present EOM: EOMs intact bilaterally and No Nystagmus present Neck Neck: Yes normal visual inspection, Yes full ROM and Yes no lymphadenopathy Chest Chest palpation & inspection: normal inspection of the chest Resp Effort & Inspection: normal respiratory effort Auscultation: clear to auscultation bilaterally, no crackles, no rales, no rhonchi, no wheezes and breath sounds present Cardio Rate: regular rate Rhythm: regular rhythm Peripheral pulses: radial pulses present and dorsalis pedis present GI Inspection: Yes normal to inspection and No Abdominal wall edema Palpation (GI): Soft to palpation, not firm and nontender Auscultation: normal bowel sounds Rectal Exam - Female: deferred General: Yes no CVA tenderness Back/Spine/Pelvis Back: no CVA tenderness Skin General skin exam: no rashes or lesions noted Neuro General: patient oriented x3 Cranial nerves: Yes Equal, round and reactive pupils present, Yes Midline tongue present, Yes Ability to bilaterally elevate shoulders present and No Nystagmus present Gait exam (Neuro): Normal gait present Extrem General: Yes normal to inspection, Yes full ROM, No no pedal edema and No edema Psych Speech and movement: Normal speech and movement present Affect: normal affect Insight: Good insight present (Psych) Judgement: Good judgement present (Psych) Immunizations Boostrix Tdap 2.5 Lf unit-8 mcg-5 Lf/0.5 mL intramuscular syringe Performing Provider: Shani Gregorio PA-C Performing Location: [facility] [place] [facility] Administered by: Suzie Hair CMA on 07/28/25 14:07 Dose Route Admin Location Dispensed Lot Number Expiration Date [facility] Button Tacker 0.5 mL IM Left Deltoid 0.5 mL [id number] 10/07/27 [id number] [employer] Total Dispensed Waste 0.5 mL 0 % VIS Given Date VIS Provided VIS Publication Date 07/28/25 Single Vaccine 21 Eligibility Eligibility Date Funding Source Not [facility] Eligible 07/28/25 Private Coding Level of Care Code Est Pt Prev Care 40-64y(91600) Diagnoses Annual physical exam Z00.00 Tobacco abuse Z72.0 Hypertension I10 Stenosis of right carotid artery I65.21 Laterality: right Hypercholesterolemia E78.00 Weakness of left lower extremity R29.898 CVA (cerebral vascular accident) I63.9 Insomnia G47.00 Additional Codes PHQ-9 - 59238 - PHQ-9 Billing: Yes ([id number]) Assessment & Plan Assessment & Plan (1) Annual physical exam: Code(s): Z00.00 - Encounter for general adult medical examination without abnormal findings Category: Medical Plan: Patient is overdue for several screenings which has been updated today. Reminded patient about blood work and strongly encouraged to have this done. Healthy diet and regular exercise is encouraged. (2) Tobacco abuse: Code(s): Z72.0 - Tobacco use Category: Medical Plan: Smoking cigarettes and the use of tobacco can be harmful. We discussed the importance of stopping and options to aid in smoking cessation. Nicotine gum, refilled today (3) Hypertension: Code(s): I10 - Essential (primary) hypertension Category: Medical Plan: Continue on current blood pressure medication. Avoid salt intake and encourage healthy diet and regular exercise. (4) Carotid stenosis: Comment: 08/24/2024 - right carotid endarterectomy Code(s): I65.29 - Occlusion and stenosis of unspecified carotid artery Category: Medical Qualifiers: Laterality: right Qualified Code(s): I65.21 - Occlusion and stenosis of right carotid artery Plan: Continue to follow with Neurology at this time. Advised good control of cholesterol, blood pressure at blood sugars. Reminded patient about cholesterol labs (5) Hypercholesterolemia: Code(s): E78.00 - Pure hypercholesterolemia, unspecified Category: Medical Plan: Avoid foods that are high in cholesterol such as red meat, fried foods, eggs and baked goods. Triglyceride goal of less than 150 and LDL goal of less than 70. Reminded about labs (6) Weakness of left lower extremity: Code(s): R29.898 - Other symptoms and signs involving the musculoskeletal system Category: Medical Plan: Has been improving with walking exercises. (7) CVA (cerebral vascular accident): Code(s): I63.9 - Cerebral infarction, unspecified Category: Medical Plan: She will continue to follow with Neurology at this time and continue with good control of blood pressure, cholesterol and blood sugars. Reminded patient about blood work and continue on aspirin 81 mg daily (8) Insomnia: Code(s): G47.00 - Insomnia, unspecified Category: Medical Plan: For insomnia plan to trial trazodone 50 mg at bedtime. Advised patient for the 1st week to bring the pills in half and do 25 mg to monitor for side effects. Follow up in 3 months Plan During the visit, we discussed the patient's ongoing tobacco use and the challenges with nicotine replacement therapy. We reviewed her stable intracranial aneurysm and the plan for annual follow-up with neurology. For her insomnia, we decided to start trazodone at a low dose to improve her sleep quality. Preventative care measures, including mammogram, colon cancer screening, and vaccination, were addressed to ensure comprehensive health maintenance. This note was constructed using voice recognition software. While every effort has been made to ensure accuracy and supervisor order takers, still areas may have been included sometimes these areas may affect the content or meeting of the given symptoms. Total time spent caring for the patient today was 30 minutes. This includes time spent before the visit reviewing the chart, time spent during the visit, and time spent after the visit and documentation. Patient was informed and verbally consented to the use of an ambient scribe for clinic note documentation during this visit. Orders: Orders TDaP Immunization Today Z23 - Encounter for immunization MM tomosynthesis screening BI Today Z12.31 - Encounter for screening mammogram for malignant neoplasm of breast Lipid Panel Today E78.00 - Pure hypercholesterolemia, unspecified Hemoglobin A1c Today Z13.1 - Encounter for screening for diabetes mellitus Referrals Cologuard Test Z12.11 - Encounter for screening for malignant neoplasm of colon Lung Cancer Screening Referral Z72.0 - Tobacco use Medications: New trazodone 50 mg PO BEDTIME 90 tabs 0RF Refilled nicotine (polacrilex) 2 mg buccal Q2H PRN 100 gums 2RF for nicotine cravings
[2025-07-28 13:27] VITALS: BP 110/72; PULSE 91; O2SAT 96; BMI 18.8
== END 2025-07-28 14:10 | disposition home or self-care (01) ==
LOC: HO.HMCH 13:18
DX: Z00.00 Encounter for general adult medical examination without abnormal findings (principal); I63.9 Cerebral infarction, unspecified; Z72.0 Tobacco use; I10 Essential (primary) hypertension; I65.21 Occlusion and stenosis of right carotid artery; E78.00 Pure hypercholesterolemia, unspecified; R29.898 Other symptoms and signs involving the musculoskeletal system; G47.00 Insomnia, unspecified; Z23 Encounter for immunization

== ENCOUNTER → 2025-07-28 13:17 | Outpatient (BNVA) | payer OTHER, SELFPAY | DX: Z00.00 Encounter for general adult medical examination without abnormal findings (principal); F17.210 Nicotine dependence, cigarettes, uncomplicated; I10 Essential (primary) hypertension; I65.21 Occlusion and stenosis of right carotid artery; E78.00 Pure hypercholesterolemia, unspecified; R29.898 Other symptoms and signs involving the musculoskeletal system; G47.00 Insomnia, unspecified; Z23 Encounter for immunization; Z86.73 Personal history of transient ischemic attack (TIA), and cerebral infarction without residual deficits | CPT/HCPCS: 90471; 90715; 96127; 99396 ==

== ENCOUNTER 2025-08-18 12:19 | Outpatient (REF) | payer OTHER, SELFPAY | END 2025-08-18 12:20 | disposition home or self-care (01) | LOC: HO.MAMMO 12:19 | DX: Z12.31 Encounter for screening mammogram for malignant neoplasm of breast (principal) | CPT/HCPCS: 77063; 77067 ==

== ENCOUNTER → 2025-08-18 12:30 | Outpatient (BNV) | payer OTHER, SELFPAY | PROVIDERS: Visit Provider Internal Medicine | DX: Z12.31 Encounter for screening mammogram for malignant neoplasm of breast (principal) | CPT/HCPCS: 77063; 77067 ==

== ENCOUNTER 2025-10-27 14:06 | Outpatient (AMB) | payer OTHER, SELFPAY ==
[2025-10-27 14:11] VITALS: BP 142/98; PULSE 96; O2SAT 96; BMI 18.8
--- NOTE | 2025-10-27 14:11 | MHC.PC.OV ---
Vital Signs 10/27/25 14:11 10/27/25 15:07 Height 5 ft Weight 96 lb 2 oz BMI 18.8 BP 142/98 H 178/86 H Blood Pressure Location Lt brachial Lt brachial Position Sitting Sitting Pulse 96 Pulse Source Pulse Oximeter Pulse Oximetry (%) 96 Oxygen Delivery Method Room Air Intake Visit Reasons: f/u insomnia Elevators Inspector Required: No Accompanied by: Self / Same As Patient Allergies Penicillins Allergy (Severe, Verified 10/27/25 14:51) Swelling nicotine Allergy (Intermediate, Verified 10/27/25 14:51) Rash Medication List - Last Reconciled 10/27/25 by Shani Gregorio PA-C aspirin 81 mg PO DAILY atorvastatin 40 mg PO BEDTIME blood pressure test kit-small As directed up to QID cyclobenzaprine 5 mg PO BEDTIME lisinopril 10 mg See Protocol PO DAILY metoprolol succinate ER (Toprol XL) 50 mg PO DAILY multivit with min-folic acid 120 mcg (Women's Multivitamin Gummies) 2 tabs PO DAILY nicotine (polacrilex) 2 mg buccal Q2H PRN trazodone 50 mg PO BEDTIME Tobacco use date assessed: 10/27/25 Dental Screening Dental Screen Date: 10/27/25 Did you have a dental visit in the last 12 months?: Yes Did you have a dental problem in the last 6 months where you did not have access to dental care?: No Was dental information given to patient?: Patient has dentist HPI f/u insomnia HPI Details 60-year-old female with past medical history of CVA with carotid stenosis, tobacco abuse, hypercholesterolemia, hypertension, insomnia last seen 07/2025 coming in for follow up. Presenting for follow-up after a fall and for medication management. About a month ago, the patient experienced two falls in one night. The first fall occurred when she tripped on a curb while carrying groceries, resulting in bruised back ribs. She reports this was not preceded by dizziness or chest pain. The second fall occurred when she misjudged sitting on her bed and landed on her tailbone. She has been managing the pain with Tylenol, ice, and a heating pad. The rib pain has mostly resolved with some residual tenderness, but the tailbone pain persists, especially with prolonged sitting or when standing up from a seated position, though it is improving. The patient reports that the trazodone for sleep is working great and she is now taking the full 50 mg tablet every night. She has been cutting back on smoking and now only smokes a few cigarettes out of habit, using nicotine gum to help. She monitors her blood pressure at home once daily in the morning, with typical readings in the 120s and occasionally up to 140s. She takes her blood pressure medications, including lisinopril, as prescribed. [facility] Medical History Cerebral infarction Ambulates with cane Closed left ankle fracture Weakness of left lower extremity Smoker HLD (hyperlipidemia) HTN (hypertension) History of cerebrovascular accident (~06/25/24) Surgical History No pertinent past surgical history Family History Father Mesothelioma Mother Breast cancer Social History Household Members: Family Household Members Other:: daughter Housing: House Are you a primary patient care secretary to a significant other at home: No Do you presently have visiting nurse or other home services: No 75 years or older and lives alone: No Alcohol intake: current Alcohol intake frequency: a few times a month Patient Tobacco Use Status: Current everyday Tobacco user Tobacco use type: Cigarette Cigarette Packs Per Day: 0.25 Cigarettes Per Day: 4 Years Smoked: 40 e-Cigarette/Vaping Use: Never Used Second Hand Smoke Exposure: Yes service: No Current occupational status: employed 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 1. Little interest or pleasure in doing things: not at all 2. Feeling down, depressed, or hopeless: several days 3. Trouble falling or staying asleep, or sleeping too much: several days 4. Feeling tired or having little energy: several days 5. Poor appetite or overeating: not at all 6. Feeling bad about yourself - or that you are a failure or have let yourself or your family down: not at all 7. Trouble concentrating on things, such as reading the newspaper or watching television: not at all 8. Moving or speaking so slowly that other people could have noticed. Or the opposite - being so fidgety or restless that you have been moving around a lot more than usual: not at all 9. Thoughts that you would be better off or of hurting yourself in some way: not at all Total score: 3 Source: Developed by Drs. Mikel Cali, Yael Martins, Adan Garcia and colleagues, with an educational manpreet from [employer]. Thrive Questionnaire Date Thrive assessed: 10/27/25 I am a: Patient What is your living situation today?: I have a steady place to live Within the past 12 months, did the food you bought not last and you didn't have the money to get more?: Never true Within the past 12 months, did you worry whether your food would run out before you got money to buy more?: Never true Do you have trouble paying for medicines?: No Do you have trouble getting transportation to medical appointments?: No Do you have trouble paying your heating and electricity bill?: No Do you have trouble taking care of your child, family member or friend?: No Do you have trouble with day-to-day activities such as bathing, preparing meals, shopping, managing finances, etc.?: No Are you currently unemployed and looking for a job?: No Are you interested in more education?: No Please select the resources that you would like help with: None Currently or been in a relationship where the following occur: No concerns reported THRIVE Score: 0 AUDIT C Alcohol Use Questionnaire (AUDIT-C) 1. How often do you have a drink containing alcohol?: Monthly or less 2. How many drinks containing alcohol do you have on a typical day when you are drinking?: 1 or 2 3. How often do you have six or more drinks on one occasion?: Never Total Score: 1 ZOILA-7 AMB Questionnaire ZOILA-7 Date ZOILA - 7 assessed: 10/27/25 Feeling nervous, anxious, or on edge: 1 = Several days Not being able to stop or control worryin = Several days Worrying too much about different things: 1 = Several days Trouble relaxin = Not at all Being so restless that it is hard to sit still: 0 = Not at all Becoming easily annoyed or irritable: 0 = Not at all Feeling afraid as if something awful might happen: 0 = Not at all Total ZOILA-7 score (0-4 normal; 5-9 mild; 10-14 moderate; 15-21 severe): 3 Source: Developed by Drs. Mikel Cali, Yael Martins, Adan Garcia and colleagues, with an educational manpreet from [employer]. Review of Systems Const Denies body aches, Denies chills, Denies fever(s), Denies headache(s) and Denies poor appetite Eyes Reports no additional complaints ENT Denies dizziness and Denies headache(s) Card Denies chest pain, Denies edema, Denies lightheadedness and Denies dyspnea Resp Denies dyspnea GI Denies abdominal pain, Denies nausea and Denies vomiting Reports no additional complaints Musc Reports no additional complaints and Denies abnormal gait Skin/Breast Reports system reviewed and no additional complaints, except as documented Neuro Denies abnormal gait, Denies dizziness and Denies headache(s) Psych Reports no additional complaints Physical exam (Primary Care) Vital Signs: Last Vital Signs Pulse 96 10/27/25 14:11 BP 178/86 H 10/27/25 15:07 Pulse Ox 96 10/27/25 14:11 Oxygen Delivery Method Room Air 10/27/25 14:11 BMI result Body Mass Index 18.8 Tobacco/Smoking Status: Tobacco use Status Tobacco use date assessed 10/27/25 10/27/25 14:14 Patient Tobacco Use Status Current everyday Tobacco 10/27/25 14:14 Tobacco use type Cigarette 10/27/25 14:14 e-Cigarette/Vaping Use Never Used 10/27/25 14:14 PHQ-9: PHQ-9 Score PHQ-9: Total score 3 10/27/25 14:57 Thrive Assessment: Date of Thrive Assessment Date Thrive assessed 10/27/25 10/27/25 14:49 Currently or been in a relationship where the following occur: No concerns reported Const General: cooperative, healthy appearing, comfortable and no acute distress Orientation/consciousness: patient oriented x3 HENMT Head: Yes normocephalic Ears: hearing grossly normal bilaterally General nose exam: Normal external nose present Eyes General: appearance normal, both eyes and all related structures Conjunctivae: conjunctivae normal Neck Neck: Yes full ROM and Yes no lymphadenopathy Chest Other: No tenderness to palpation over left ribs or intercostal spaces Resp Effort & Inspection: normal respiratory effort Auscultation: clear to auscultation bilaterally, no crackles, no rales, no rhonchi and no wheezes Cardio Rate: regular rate Rhythm: regular rhythm Back/Spine/Pelvis Other: No tenderness to palpation over entirety of spine or coccyx Skin General skin exam: no rashes or lesions noted Neuro General: patient oriented x3 Gait exam (Neuro): Normal gait present Extrem General: Yes normal to inspection, Yes full ROM and No edema Psych Affect: normal affect Attitude: cooperative Insight: Good insight present (Psych) Judgement: Good judgement present (Psych) Coding Level of Care Code Est Pt Level 3 (85700) Diagnoses Hypertension I10 Tobacco abuse Z72.0 Insomnia G47.00 Hypercholesterolemia E78.00 Rib pain R07.89 Coccyx pain M53.3 Assessment & Plan Assessment & Plan (1) Hypertension: Code(s): I10 - Essential (primary) hypertension Category: Medical Plan: The patient's blood pressure was significantly elevated in the office at 188/80 mmHg, which is uncharacteristic for her, despite her reporting adherence to medication and having normal readings at home. She reports no symptoms of chest pain or significant dizziness. Pain from her tailbone injury could be a contributing factor. The plan is for her to recheck her blood pressure at home today when she is more relaxed and send the reading through the patient portal. If readings remain elevated, we will consider increasing her lisinopril dose. (2) Tobacco abuse: Code(s): Z72.0 - Tobacco use Category: Medical Plan: Smoking cigarettes and the use of tobacco can be harmful. We discussed the importance of stopping and options to aid in smoking cessation. Nicotine gum, refilled today (3) Insomnia: Code(s): G47.00 - Insomnia, unspecified Category: Medical Plan: The patient reports significant improvement in sleep with trazodone. She has successfully titrated up to the full 50 mg dose, which she takes nightly. She will continue on trazodone 50 mg nightly as it is considered safe for long-term use. (4) Hypercholesterolemia: Code(s): E78.00 - Pure hypercholesterolemia, unspecified Category: Medical Plan: Avoid foods that are high in cholesterol such as red meat, fried foods, eggs and baked goods. Triglyceride goal of less than 150 and LDL goal of less than 70. Reminded about labs (5) Rib pain: Code(s): R07.89 - Other chest pain Category: Medical Plan: The patient sustained injuries to her back ribs and coccyx from two falls a month ago. She reports persistent coccyx pain, particularly with sitting, and mild residual rib tenderness. Physical exam revealed mild tenderness on the sides of her back but no tenderness with direct palpation over the coccyx. Given that there is limited intervention for rib or coccyx fractures, imaging is deferred at this time, as the patient declined an X-ray. She will continue with supportive care including Tylenol, ice, and heat. She was advised that healing can take 6-8 weeks and to report if pain worsens or fails to improve. (6) Coccyx pain: Code(s): M53.3 - Sacrococcygeal disorders, not elsewhere classified Category: Medical Plan: See above. Plan This note was constructed using voice recognition software. While every effort has been made to ensure accuracy and ordering machine operator, still areas may have been included sometimes these areas may affect the content or meeting of the given symptoms. Total time spent caring for the patient today was 20 minutes. This includes time spent before the visit reviewing the chart, time spent during the visit, and time spent after the visit and documentation. Patient was informed and verbally consented to the use of an ambient scribe for clinic note documentation during this visit. Medications: Refilled nicotine (polacrilex) 2 mg buccal Q2H PRN 100 gums 2RF for nicotine cravings
[2025-10-27 15:07] VITALS: BP 178/86
== END 2025-10-27 15:09 | disposition home or self-care (01) ==
LOC: HO.HMCH 14:07
DX: I10 Essential (primary) hypertension (principal); Z72.0 Tobacco use; G47.00 Insomnia, unspecified; E78.00 Pure hypercholesterolemia, unspecified; R07.89 Other chest pain; M53.3 Sacrococcygeal disorders, not elsewhere classified

== ENCOUNTER → 2025-10-27 14:06 | Outpatient (BNVA) | payer OTHER, SELFPAY | DX: I10 Essential (primary) hypertension (principal); G47.00 Insomnia, unspecified; E78.00 Pure hypercholesterolemia, unspecified; R07.89 Other chest pain; M53.3 Sacrococcygeal disorders, not elsewhere classified; Z72.0 Tobacco use; Z13.31 Encounter for screening for depression; Z13.39 Encounter for screening examination for other mental health and behavioral disorders; Z79.899 Other long term (current) drug therapy | CPT/HCPCS: 96127; 99212 ==